=== PATIENT | male | born 1955 | race Caucasian/White ===

== ENCOUNTER 2017-01-02 09:55 | Emergency (ER) | payer OTHER ==
[~2017-01-02] VITALS: Ht 175.3 cm; Wt 110.2 kg
[~2017-01-02 09:55] MED LIST: ACET-749 PO; ASPI81TA28 PO; BISM262S7 PO; CYCL10TA6 PO; DEXL60CA4 PO; DOCU100C PO; IBUP-103 PO; LISI-789 PO; LPT/40 PO; METO25TA56 PO; NTRGSL/4 UT; PENI250T3 PO
[2017-01-02 09:57] VITALS: TEMP 36.8; Ht 175.3 cm; Wt 110.2 kg
[2017-01-02] MEDS ORDERED: METO50TA16 PO (10:49)
[2017-01-02] MEDS ORDERED: PRT/40 PO (10:49)
[2017-01-02] MEDS ORDERED: POLY335019 PO (10:51)
[2017-01-02] MEDS ORDERED: OPTIRAY 320 IV PRN (11:15)
[2017-01-02 11:32] LABS: BUN/CREATININE RATIO 14.8 (10-20); CALCIUM 9.1 mg/dl (8.5-10.1); CREATININE 1.3 mg/dl (0.60-1.40); POTASSIUM 4.1 mmol/L (3.5-5.1)
[2017-01-02 11:57] LABS: BASO % 0.3 %; BASO ABS # 0.02 K/uL (0-0.2); COMPLETE YES; EOS % 5.3 %; HEMATOCRIT 44.4 % (42-52); IG% 0.3 %; LYMPH % 24.7 %; LYMPH ABS # 1.45 K/uL (1.2-3.4); MEAN CELL VOLUME 96.1 fL (80-100); MEAN CORPUSCULAR HEMOGLOBIN 33.5 pg (25-34); MEAN CORPUSCULAR HGB CONC 34.9 g/dl (32-36); MONO % 13.6 %; NEUT % 55.8 %; PLATELET COUNT 209 K/uL (130-400); RED BLOOD COUNT 4.62 M/uL (4.7-6.1); WHITE BLOOD COUNT 5.87 K/uL (4.8-10.8)
--- NOTE | 2017-01-02 12:03 | DIAGNOSTIC IMAGING REPORT ---
SOFT TISSUE NECK WITH CLINICAL HISTORY: right neck pain and swelling eval for abscess TECHNIQUE: Transaxial acquisition with multi axial reformatted images COMPARISON STUDY: None FINDINGS: Major salivary glands appear symmetric. The parotid and submandibular glands appear unremarkable. The glottic and subglottic regions are unremarkable. There is no significant airway compromise. There are several benign-appearing calcifications of the peritonsillar region bilaterally. There is a benign venous angioma superficial to the deep component of the right masseter musculature. No evidence for abnormal collection or abscess. The glottic and subglottic regions again are unremarkable. Thyroid appears to be symmetric. IMPRESSION: No acute process. The above report was generated using voice recognition software. It may contain grammatical, syntax or spelling errors. Electronically signed by: Corky Carney M.D. 01/02/2017 12:01 PM Dictated Date/Time: 01/02/2017 11:56 AM
--- NOTE | 2017-01-02 12:28 | DIAGNOSTIC IMAGING REPORT ---
CHEST 2 VIEWS ROUTINE CLINICAL HISTORY: cough eval for pna cough COMPARISON STUDY: 01/13/2014 FINDINGS: The bones soft tissues and hemidiaphragms are normal. The cardiomediastinal silhouette is normal. The lungs are clear. The pulmonary vasculature is normal. IMPRESSION: Negative chest. The above report was generated using voice recognition software. It may contain grammatical, syntax or spelling errors. Electronically signed by: Corky Carney M.D. 01/02/2017 12:27 PM Dictated Date/Time: 01/02/2017 12:26 PM
[2017-01-02 13:06] VITALS: BP 138/89; PULSE 82; O2SAT 95
--- NOTE | 2017-01-02 17:04 | EMERGENCY ROOM VISIT NOTE ---
History Report prepared by Juan J: Rose Thomas Under the Supervision of: Dr. Moses De La Rosa M.D. First contact with patient: 10:30 Chief Complaint: NECK PAIN Stated Complaint: PAIN IN RT SIDE OF NECK History of Present Illness The patient is a 61 year old male who presents to the Emergency Room with complaints of persistent right sided neck pain starting 2 weeks ago. He woke up with the pain. He describes the pain as a stiffness. He denies any injury or unusual activity. The pain worsens with movement of his neck. He notes a cough which is productive of a sputum which is sometimes green and sometimes white. His throat has been feeling dry at times. He has also had some post nasal drip. Six days ago, he started having right dental pain which worsened over the next couple of days. He went to the dentist who started him on penicillin for a possible infection 2 days ago. That night, the right side of his face and right ear began feeling painful. The pain is constant and seems to be worsening. It worsens with chewing. He had an episode of vomiting 3 days ago in the middle of the night which was not preceded by coughing. He has not vomited since. He denies any fever, chest pain, or abdominal pain. He has a history of NV. He had severe chest pain prior to his previous NV. His current neck pain does not feel like his previous NV. Source of History: patient Onset: 2 weeks ago Position: neck (right) Quality: other (stiffness) Timing: other (persistent) Modifying Factors (Worsening): movement Associated Symptoms: + headache, + cough, + vomiting (episodic), No fevers, No chest pain, No abdominal pain Note: Pt reports throat feeling dry, right dental pain, right face pain, right ear pain. Review of Systems See HPI for pertinent positives & negatives. A total of 10 systems reviewed and were otherwise negative. Past Medical & Surgical Medical Problems: (1) CAD (coronary artery disease) (2) Cardiomyopathy (3) Chronic radicular low back pain (4) Depression (5) Drug-induced hypotension (6) Dyslipidemia (7) HTN (hypertension) Family History Cancer Gallbladder disease Heart disease Hypertension Social History Smoking Status: Never Smoker Alcohol Use: none Marital Status: Housing Status: lives with family Occupation Status: unemployed Current/Historical Medications Scheduled Acetaminophen/Codeine (Tylenol W/Codeine #3), 1 TAB PO TID Aspirin (Aspirin Ec), 81 MG PO DAILY Atorvastatin (Lipitor), 40 MG PO QPM Cyclobenzaprine Hcl (Flexeril), 10 MG PO TID Ibuprofen Tab (Advil), 400 MG PO Q4-6HRS Metoprolol Tartrate (Lopressor) (Lopressor), 1 TAB PO BID Pantoprazole (Pantoprazole Sodium), 1 TAB PO DAILY Penicillin V Potassium (Veetids), 1 TAB PO TID Polyethylene Glycol 3350 (Miralax), 17 GM PO DAILY Scheduled PRN Bismuth Subsalicylate (Pepto-Bismol), 30 ML PO UD PRN for Indigestion Nitroglycerin (Nitrostat), 0.4 MG UT UD PRN for Chest Pain Allergies Coded Allergies: BEE STING (Verified Allergy, Mild, RASH, 01/02/17) Onion (Verified Allergy, Unknown, SWELLING/RASH, 01/02/17) [place] (Verified Allergy, Unknown, ., 01/02/17) Physical Exam Vital Signs Date Time Temp Pulse Resp B/P (MAP) Pulse Ox O2 Delivery O2 Flow Rate FiO2 01/02/17 13:06 82 138/89 95 01/02/17 11:37 90 20 120/71 Room Air 01/02/17 10:41 Room Air 01/02/17 10:14 87 164/92 90 145/107 96 138/87 01/02/17 09:57 36.8 96 20 158/90 94 Room Air Physical Exam Constitutional: Vital signs reviewed. Eyes: Pupils are equal round reactive to light. Conjunctiva are noninjected. ENT: Pharynx is clear without erythema or exudate. Throat is very dry. Right TM is clear. Neck without meningeal signs. Soft tissue swelling and tenderness to the right neck. No percussion tenderness to the right mandibular and maxillary teeth. Respiratory: Clear to auscultation bilaterally. Breath sounds are equal bilaterally. Cardiovascular: Regular rate and rhythm. No rubs or gallops. GI: Soft, nondistended and nontender. Bowel sounds are present. Musculoskeletal: No peripheral edema. No lower extremity tenderness. Integumentary: No cyanosis. Neurological: The patient is awake and alert. No focal deficits. Psychiatric: Normal affect. Medical Decision & Procedures ER Provider Diagnostic Interpretation: X-ray results as stated below per interpretation by me and the radiologist. Radiology results as stated below per my review and the radiologist's interpretation: CHEST 2 VIEWS ROUTINE CLINICAL HISTORY: cough eval for pna cough COMPARISON STUDY: 01/13/2014 FINDINGS: The bones soft tissues and hemidiaphragms are normal. The cardiomediastinal silhouette is normal. The lungs are clear. The pulmonary vasculature is normal. IMPRESSION: Negative chest. The above report was generated using voice recognition software. It may contain grammatical, syntax or spelling errors. Electronically signed by: Corky Carney M.D. 01/02/2017 12:27 PM Dictated Date/Time: 01/02/2017 12:26 PM SOFT TISSUE NECK WITH CLINICAL HISTORY: right neck pain and swelling eval for abscess TECHNIQUE: Transaxial acquisition with multi axial reformatted images COMPARISON STUDY: None FINDINGS: Major salivary glands appear symmetric. The parotid and submandibular glands appear unremarkable. The glottic and subglottic regions are unremarkable. There is no significant airway compromise. There are several benign-appearing calcifications of the peritonsillar region bilaterally. There is a benign venous angioma superficial to the deep component of the right masseter musculature. No evidence for abnormal collection or abscess. The glottic and subglottic regions again are unremarkable. Thyroid appears to be symmetric. IMPRESSION: No acute process. The above report was generated using voice recognition software. It may contain grammatical, syntax or spelling errors. Electronically signed by: Corky Carney M.D. 01/02/2017 12:01 PM Dictated Date/Time: 01/02/2017 11:56 AM Laboratory Results 01/02/17 11:00 Red Blood Count 4.62, Mean Corpuscular Volume 96.1, Mean Corpuscular Hemoglobin 33.5, Mean Corpuscular Hemoglobin Concent 34.9, Mean Platelet Volume 11.0, Neutrophils (%) (Auto) 55.8, Lymphocytes (%) (Auto) 24.7, Monocytes (%) (Auto) 13.6, Eosinophils (%) (Auto) 5.3, Basophils (%) (Auto) 0.3, Neutrophils # (Auto ) 3.27, Lymphocytes # (Auto) 1.45, Monocytes # (Auto) 0.80, Eosinophils # (Auto ) 0.31, Basophils # (Auto) 0.02 01/02/17 11:00 Test 01/02/17 11:00 White Blood Count 5.87 K/uL (4.8-10.8) Red Blood Count 4.62 M/uL (4.7-6.1) Hemoglobin 15.5 g/dL (14.0-18.0) Hematocrit 44.4 % (42-52) Mean Corpuscular Volume 96.1 fL (80-100) Mean Corpuscular Hemoglobin 33.5 pg (25-34) Mean Corpuscular Hemoglobin Concent 34.9 g/dl (32-36) Platelet Count 209 K/uL (130-400) Mean Platelet Volume 11.0 fL (7.4-10.4) Neutrophils (%) (Auto) 55.8 % Lymphocytes (%) (Auto) 24.7 % Monocytes (%) (Auto) 13.6 % Eosinophils (%) (Auto) 5.3 % Basophils (%) (Auto) 0.3 % Neutrophils # (Auto) 3.27 K/uL (1.4-6.5) Lymphocytes # (Auto) 1.45 K/uL (1.2-3.4) Monocytes # (Auto) 0.80 K/uL (0.11-0.59) Eosinophils # (Auto) 0.31 K/uL (0-0.5) Basophils # (Auto) 0.02 K/uL (0-0.2) RDW Standard Deviation 44.4 fL (36.4-46.3) RDW Coefficient of Variation 12.8 % (11.5-14.5) Immature Granulocyte % (Auto) 0.3 % Immature Granulocyte # (Auto) 0.02 K/uL (0.00-0.02) Anion Gap 7.0 mmol/L (3-11) Est Creatinine Clear Calc Drug Dose 73.9 ml/min Estimated GFR () 68.7 Estimated GFR (Non- 59.3 BUN/Creatinine Ratio 14.8 (10-20) Calcium Level 9.1 mg/dl (8.5-10.1) Laboratory results as reviewed by me. ECG Indication: other (neck pain) Rate (beats per minute): 87 Rhythm: normal sinus Findings: nonspecific-ST abn (lead 1 and aVL), Q waves (Septal), no ectopy ED Course 1033: The patient was evaluated in room A11B. A complete history and physical exam was performed. 1246: I reevaluated the patient. I discussed the test results with him. I recommended antihistamines for his post nasal drop. I offered to change his antibiotic to Augmentin, but prefers to stay on penicillin. He verbalized agreement of the treatment plan. He was discharged home. He will follow up with his dentist. Medical Decision This is a 61-year-old male who presents with right-sided neck pain and dental pain. Differential diagnosis includes periapical abscess, sialoadenitis, sialolithiasis, soft tissue infection, abscess, mass. I did perform a limited focused review of portions of the patient's old chart on the electronic medical record. The patient has had no recent pertinent visits to this hospital. I did evaluate the patient as noted above. Patient is presenting with a 2 week history of right-sided neck pain. He is tender to palpation. He also has dental pain and was diagnosed by his dentist as having an ear infection and placed on penicillin. IV access was established. The patient has had a cough for about a month. I did order and personally review the patient's 12-lead EKG and chest x-ray as described above. Chest x-ray is unremarkable. Twelve-lead EKG is not showing any acute ischemic changes. He does state that his prior heart attack he had severe chest pain. He denies having any chest pain at this time. His neck pain is reproducible and not likely secondary to angina. His white blood cell count is not elevated. I did order and review the patient's blood work as noted in the electronic medical record. I did order a CT of the soft tissue neck. I did review the images myself as well as the radiology report as described above. I did discuss the test results with the patient and his family. He has no evidence of acute pathology and his CT scan. I did discuss possibly changing his antibiotic to Augmentin but he preferred to stand penicillin. He will follow up with his dentist. He was told to take antihistamines to help with his postnasal drip. He was discharged in good condition. He will also follow with his doctor. Medication Reconcilliation Current Medication List: was personally reviewed by me Blood Pressure Screening Patient's blood pressure: Elevated blood pressure Blood pressure disposition: Referred to PCP Impression Primary Impression: Neck pain on right side Additional Impressions: Dental infection Cough Scribe Attestation The scribe's documentation has been prepared under my direct and personally reviewed by me in its entirety. I confirm that the note above accurately reflects all work, treatment, procedures, and medical decision making performed by me. Departure Information Dispostion Home / Self-Care Referrals Akiko Decker PA-C (PCP) Forms HOME CARE DOCUMENTATION FORM, IMPORTANT VISIT INFORMATION, WORK / SCHOOL INSTRUCTIONS Patient Instructions ED Cough Chronic Cause Unkn, My [facility] Additional Instructions You have been examined and treated today on an emergency basis only. This is not a substitute for, or an effort to provide, complete comprehensive medical care. It is impossible to recognize and treat all injuries or illnesses in a single emergency department visit. It is therefore important that you follow up closely with your physician and dentist. Call as soon as possible for an appointment. Return for worsening symptoms or if you develop fever, vomiting, chest pain, difficulty breathing swelling to your face or any other concerning symptoms. Problem Qualifiers
== END 2017-01-02 13:07 | disposition home or self-care (01) ==
LOC: C.EDB 09:57 → C.EDA 13:07
DX: M54.2 Cervicalgia (principal); K04.7 Periapical abscess without sinus; R05 Cough; I25.2 Old myocardial infarction; I25.10 Atherosclerotic heart disease of native coronary artery without angina pectoris; I42.9 Cardiomyopathy, unspecified; F32.9 Major depressive disorder, single episode, unspecified; E78.5 Hyperlipidemia, unspecified; I10 Essential (primary) hypertension; Z80.9 Family history of malignant neoplasm, unspecified; Z83.79 Family history of other diseases of the digestive system; Z82.49 Family history of ischemic heart disease and other diseases of the circulatory system; Z79.82 Long term (current) use of aspirin; Z79.899 Other long term (current) drug therapy

== ENCOUNTER → 2017-07-07 | Day surgery (SDC) | payer OTHER ==
[2017-07-02 15:14] VITALS: Ht 172.7 cm; Wt 109.1 kg
[~2017-07-07] VITALS: Ht 172.7 cm; Wt 109.1 kg
[~2017-07-07] MED LIST changes: -BISM262S7 PO; -DEXL60CA4 PO; -DOCU100C PO; +LIDOCAINE HCL 2% 2 ML VIAL (20MG/ML) ONE; -LISI-789 PO; -METO25TA56 PO; +METO50TA16 PO; +MIDAZOLAM HCL 1 MG/ML 2ML VIAL ONE; +PANT1TAB3 PO; -PENI250T3 PO; +POLY335019 PO; +PROPOFOL IV EMULSION 10 MG/ML 20 ML VIAL IV ONE
--- NOTE | 2017-07-07 14:53 | Endo History and Physical ---
History & Physical Date of Service: Jul 07, 2017. Chief Complaint: dysphagia, history of polyps Referring Physician: Dr. Decker History of Present Illness For EGD and colonoscopy Past Medical History Arthritis, Male Genitourinary Prob., Reflux, High Cholesterol, Heart Disease, CHF, Hypertension, Other, Depression Past Surgical History Hx Cardiac Surgery: Yes (HEART CATH/1 STENT PLACED) Hx Internal Defibrillator: No Hx Pacemaker: No Hx Abdominal Surgery: Yes (APPY) Hx of Implantable Prosthesis: No Hx Post-Op Nausea and Vomiting: No Hx Cancer Surgery: No Hx Thoracic Surgery: No Hx Orthopedic: No Hx Urinary Tract Surgery: No Family History None Social History Smoking Status: Never Smoker Hx Substance Use: No Hx Alcohol Use: No Allergies Coded Allergies: BEE STING (Verified Allergy, Mild, RASH, 07/02/17) Onion (Verified Allergy, Unknown, SWELLING/RASH, 07/02/17) [place] (Verified Allergy, Unknown, UPPER RESP. PROBLEM, 07/02/17) Current Medications Reported Home Medications Medications Dose Route/Sig Max Daily Dose Days Date Category Protonix (Pantoprazole) 40 Mg Tab 40 Mg PO BID 07/02/17 Reported Miralax (Polyethylene Glycol 3350) 1 Pow Pow 17 Gm PO HS 07/02/17 Reported Lopressor (Metoprolol Tartrate) 50 Mg Tab 1 Tab PO BID 01/02/17 Reported Advil (Ibuprofen) 200 Mg Tab 400 Mg PO Q4-6HRS PRN 01/09/14 Reported Aspirin Ec (Aspirin) 81 Mg Tab 81 Mg PO BID 01/09/14 Reported Flexeril (Cyclobenzaprine Hcl) 10 Mg Tab 10 Mg PO TID 01/09/14 Reported Lipitor (Atorvastatin) 40 Mg Tab 40 Mg PO QPM 01/09/14 Reported Nitrostat (Nitroglycerin) 0.4 Mg Tab 0.4 Mg UT UD PRN 03/17/13 Reported Tylenol W/Codeine #3 (Acetaminophen/Codeine Phosphate) 300 Mg/30 Mg Tab 1 Tab PO TID 01/31/11 Reported Vital Signs Weight (Kilograms): 109.09 Height (Feet): 5 Height (Inches): 8 Date Time Temp Pulse Resp B/P (MAP) Pulse Ox O2 Delivery O2 Flow Rate FiO2 07/07/17 14:21 36.7 95 22 143/82 (102) 98 Room Air Physical Exam General Appearance: WD/WN Respiratory/Chest: Respiratory effort: no dyspnea Cardiovascular: Heart Auscultation: RRR Abdomen: Inspection & Palpation: soft Assessment and Plan Dysphagia, hx polyps for EGD and colonoscopy
--- NOTE | 2017-07-07 15:27 | Discharge Instructions ---
Endoscopy Patient Instructions Date / Procedure(s) Performed Jul 07, 2017. Colonoscopy, EGD Allergy Information Coded Allergies: BEE ST[place] (Verified Allergy, Mild, RASH, 07/02/17) Onion (Verified Allergy, Unknown, SWELLING/RASH, 07/02/17) [place] (Verified Allergy, Unknown, UPPER RESP. PROBLEM, 07/02/17) Discharge Date / Findings Jul 07, 2017. Diverticulosis, hemorrhoids, normal EGD Medication Instructions Restart Stopped Medication(s): resume meds Reported Home Medications Medications Dose Route/Sig Max Daily Dose Days Date Category Protonix (Pantoprazole) 40 Mg Tab 40 Mg PO BID 07/02/17 Reported Miralax (Polyethylene Glycol 3350) 1 Pow Pow 17 Gm PO HS 07/02/17 Reported Lopressor (Metoprolol Tartrate) 50 Mg Tab 1 Tab PO BID 01/02/17 Reported Advil (Ibuprofen) 200 Mg Tab 400 Mg PO Q4-6HRS PRN 01/09/14 Reported Aspirin Ec (Aspirin) 81 Mg Tab 81 Mg PO BID 01/09/14 Reported Flexeril (Cyclobenzaprine Hcl) 10 Mg Tab 10 Mg PO TID 01/09/14 Reported Lipitor (Atorvastatin) 40 Mg Tab 40 Mg PO QPM 01/09/14 Reported Nitrostat (Nitroglycerin) 0.4 Mg Tab 0.4 Mg UT UD PRN 03/17/13 Reported Tylenol W/Codeine #3 (Acetaminophen/Codeine Phosphate) 300 Mg/30 Mg Tab 1 Tab PO TID 01/31/11 Reported Provider Instructions Activity Restrictions - No exercising or heavy lifting for 24 hours. - Do not drink alcohol the day of the procedure. - Do not drive a car or operate machinery until the day after the procedure. - Do not make any important decisions or sign important papers in 24 hours after the procedure. Following Day: - Return to full activity which may include returning to work/school. Diet Start your diet with liquids and light foods (jello, soup, juice, toast). Then eat your usual diet if not nauseated. Treatment For Common After Affects For mild abdominal pain, bloating, or excessive gas: - Rest - Eat lightly - Lie on right side Follow-Up Information Follow-up with Dr. Decker as scheduled Anesthesia Information What You Should Know You have had a procedure that required some medicine to reduce anxiety and discomfort. This treatment is called moderate sedation. After receiving the treatment, you may be sleepy, but you will be able to breathe on your own. The effects of the treatment may last for several hours. Follow these instructions along with Activity/Diet recommendations noted above: * Do NOT do anything where dizziness or clumsiness would be dangerous. * Rest quietly at home today, then you can be up and about tomorrow. * Have a responsible person stay with you the rest of today. * You may have had an I.V. today. If so, you may take the dressing off later today. Recommendations Call your doctor if: * Trouble breathing * Continuous vomiting for more than 24 hours * Temperature above 101 degrees * Severe abdominal pain or bloating * Pain not relieved by pain medicine ordered * There is increased drainage or redness from any incision * A large amount of rectal bleeding greater than 2-3 tablespoons. (If you had a polyp/s removed or have hemorrhoids, a small amount of blood - from the rectum is to be expected.) * You have any unanswered questions or concerns. IN THE EVENT OF A SERIOUS EMERGENCY, GO TO THE NEAREST EMERGENCY ROOM Your discharge instructions were prepared by provider Ruslan Sanchez. Patient Instructions Signature Page Cholo Dudley Patient (or Guardian) Signature/Date: I have read and understand the instructions given to me by my caregivers. Caregiver/RN/Doctor Signature/Date: The above-named patient and/or guardian has received patient instructions on this date. + Original Patient Signature Page (only) stays with chart. Please make copy for patient.
--- NOTE | 2017-07-07 15:30 | GI REPORT ---
Procedure Date: 07/07/2017 3:03 PM Procedure: Upper GI endoscopy Indications: Dysphagia Medicines: Midazolam 2 mg IV, Propofol total dose 340 mg IV, Lidocaine 80 mg IV Complications: No immediate complications. Estimated Blood Loss: Estimated blood loss: none. Procedure: Pre-Anesthesia Assessment: - Prior to the procedure, a History and Physical was performed, and patient medications, allergies and sensitivities were reviewed. The patient's tolerance of previous anesthesia was reviewed. - The risks and benefits of the procedure and the sedation options and risks were discussed with the patient. All questions were answered and informed consent was obtained. After obtaining informed consent, the endoscope was passed under direct vision. Throughout the procedure, the patient's blood pressure, pulse, and oxygen saturations were monitored continuously. The On-site loaner was introduced through the mouth, and advanced to the second part of duodenum. The upper GI endoscopy was accomplished without difficulty. The patient tolerated the procedure well. Findings: The esophagus was normal. The stomach was normal. The examined duodenum was normal. Impression: - Normal esophagus. - Normal stomach. - Normal examined duodenum. - No specimens collected. Recommendation: - Discharge patient to home (ambulatory). - Continue present medications. - Return to primary care physician PRN. Ruslan Sanchez M.D. Ruslan Sanchez MD 07/07/2017 3:30:11 PM This report has been signed electronically. Note Initiated On: 07/07/2017 3:03 PM I attest to the content of the Intraoperative Record and orders documented therein, exceptions below
--- NOTE | 2017-07-07 15:33 | GI REPORT ---
Procedure Date: 07/07/2017 3:15 PM Procedure: Colonoscopy Indications: Personal history of colonic polyps Medicines: Midazolam 2 mg IV, Propofol total dose 340 mg IV, Lidocaine 80 mg IV Complications: No immediate complications. Estimated Blood Loss: Estimated blood loss: none. Procedure: Pre-Anesthesia Assessment: - Prior to the procedure, a History and Physical was performed, and patient medications, allergies and sensitivities were reviewed. The patient's tolerance of previous anesthesia was reviewed. - The risks and benefits of the procedure and the sedation options and risks were discussed with the patient. All questions were answered and informed consent was obtained. After I obtained informed consent, the scope was passed under direct vision. Throughout the procedure, the patient's blood pressure, pulse, and oxygen saturations were monitored continuously. The scope was introduced through the anus and advanced to the cecum, identified by appendiceal orifice and ileocecal valve. The colonoscopy was performed without difficulty. The patient tolerated the procedure well. The quality of the bowel preparation was good. Findings: Non-bleeding internal hemorrhoids were found during endoscopy. The hemorrhoids were moderate. A few diverticula were found in the sigmoid colon. Impression: - Non-bleeding internal hemorrhoids. - Diverticulosis in the sigmoid colon. - No specimens collected. Recommendation: - Discharge patient to home (ambulatory). - Continue present medications. - Return to primary care physician PRN. - Repeat colonoscopy in 5 years for surveillance. Ruslan Sanchez M.D. Ruslan Sanchez MD 07/07/2017 3:32:33 PM This report has been signed electronically. Note Initiated On: 07/07/2017 3:15 PM I attest to the content of the Intraoperative Record and orders documented therein, exceptions below
[2017-07-07 16:05] VITALS: PULSE 88; O2SAT 95
--- NOTE | 2017-07-07 16:15 | Anesthesiology Progress Note ---
Anesthesia Post Op Note Date & Time Jul 07, 2017 at 16:15 Vital Signs Pain Intensity: 8 Vital Signs Past 12 Hours Date Time Temp Pulse Resp B/P (MAP) Pulse Ox O2 Delivery O2 Flow Rate FiO2 07/07/17 14:21 36.7 95 22 143/82 (102) 98 Room Air Notes Mental Status: alert / awake / arousable, participated in evaluation Pt Amnestic to Procedure: Yes Nausea / Vomiting: adequately controlled Pain: adequately controlled Airway Patency, RR, SpO2: stable & adequate BP & HR: stable & adequate Hydration State: stable & adequate Anesthetic Complications: no major complications apparent
[2017-07-07 16:20] VITALS: BP 144/94
== END | disposition home or self-care (01) ==
LOC: C.GI 13:43
PROVIDERS: ATTEND Internal Medicine Gastroenterology
DX: R13.10 Dysphagia, unspecified (principal); K21.9 Gastro-esophageal reflux disease without esophagitis; Z86.010 Personal history of colon polyps; K64.8 Other hemorrhoids; K57.90 Diverticulosis of intestine, part unspecified, without perforation or abscess without bleeding; I10 Essential (primary) hypertension; E78.00 Pure hypercholesterolemia, unspecified; Z90.89 Acquired absence of other organs; Z91.030 Bee allergy status; Z79.82 Long term (current) use of aspirin; Z79.899 Other long term (current) drug therapy

== ENCOUNTER 2018-05-12 17:12 | Inpatient (IN) ==
[2018-05-12 18:05] LABS: Basophils # (auto) 0.02 K/uL (0-0.2); Basophils % (auto) 0.2 %; Eosinophils % (auto) 1.7 %; Hematocrit (blood only) 48.5 % (42-52); Hemoglobin 16.4 g/dL (14.0-18.0); Immature Granulocytes # (auto) 0.03 K/uL (0.00-0.02); Immature Granulocytes % (auto) 0.3 %; Lymphocytes % (auto) 11.8 %; Mean Corpuscular Hgb Conc 33.8 g/dL (32-36); Mean Corpuscular Volume 96.8 fL (80-100); Mean Platelet Volume 10.9 fL (7.4-10.4); Monocytes # (auto) 1.43 K/uL (0.11-0.59); Neutrophils # (auto) 8.79 K/uL (1.4-6.5); Platelet Count 200 K/uL (130-400); RDW Coefficient of Variation 13.2 % (11.5-14.5); RDW Standard Deviation 46.5 fL (36.4-46.3); Red Blood Count 5.01 M/uL (4.7-6.1); White Blood Count 11.87 K/uL (4.8-10.8)
[2018-05-12] MEDS ORDERED: ONDANSETRON INJ 2 MG/ML 2 ML VIAL IV STA ×2 (18:18→19:29)
[2018-05-12 18:22] LABS: Alanine Aminotransferase 47 U/L (12-78); Albumin Level 4.1 gm/dl (3.4-5.0); Aspartate Aminotransferase 21 U/L (15-37); BUN Creatinine Ratio 18.2 (10-20); Blood Urea Nitrogen 25 mg/dl (7-18); Carbon Dioxide 23 mmol/L (21-32); Chloride 104 mmol/L (98-107); Est GFR (African American) 63.1; Est GFR (Non-African American) 54.4; Glucose 116 mg/dl (70-99); Potassium 4.4 mmol/L (3.5-5.1); Sodium 135 mmol/L (136-145)
[2018-05-12 18:25] LABS: Alkaline Phosphatase 74 U/L (45-117); Bilirubin,Total 0.8 mg/dl (0.2-1); Total Protein 8.1 gm/dl (6.4-8.2)
[2018-05-12] MEDS ORDERED: SODIUM CHLORIDE 0.9% 1000ML 1,000 ML IV SCH (18:30)
--- NOTE | 2018-05-12 18:37 | XRay Report ---
XR chest 1V portable HISTORY: Nausea. Generalized abdominal pain COMPARISON: Chest 1020 [id number]. FINDINGS: No pneumothorax. No pleural effusions. The heart is normal in size. Stable linear scarlike density at the left lung base. The lungs are otherwise clear. The heart is normal in size. IMPRESSION: No significant change compared to the prior study. No acute process. Electronically signed by: Ignacio Santos M.D. 05/12/2018 6:35 PM
[2018-05-12 18:39] LABS: Troponin I < 0.015 ng/ml (0-0.045)
--- NOTE | 2018-05-12 18:40 | Emergency Department Note ---
Entered by Rosalinda Galvan acting as a scribe for Idris Pepe DO History of Present Illness General Chief complaint: Vomiting Stated complaint: SICK,VOMITING Time Seen by Provider: 05/12/18 18:10 Source: patient Mode of arrival: ambulatory Limitations: no limitations History of Present Illness Provider complaint: abdominal pain Onset (ago): hour(s) (this morning) Location: abdomen Pain Consistency: + other (worsening) Maximum Pain Intensity: 10 Current Pain Intensity: 8 Quality: + other (cramp-like) Relieved By: not by other (BM) Associated symptoms: + denies other symptoms (leg pain or swelling) and + headaches; no chest pain and no fever/chills The patient is a 63 year old male who presents to the Emergency Room with complaints of a worsening abdominal pain that began this morning. The patient reports that he ate some cherries, and about an hour later had a "cramp-like" pain in his stomach, just above the belly button. He states that he had a normal bowel movement shortly after and that it did not alleviate his pain. He notes that he has since also felt bloated but denies any chest pain, leg pain or leg swelling. He reports that he is currently on a low-dose aspirin but denies any blood thinners. He also denies any episodes of fever but notes that he has had a headache. The patient states that he has chronic dizziness secondary to his medications. Home Medications Home Medications Medication Instructions Recorded Confirmed Type acetaminophen-codeine 1 tab PO TID 02/09/18 05/12/18 History [Tylenol-Codeine #3] aspirin [Aspir-81] 81 mg PO DAILY 02/09/18 05/12/18 History cyclobenzaprine 10 mg PO TID 02/09/18 05/12/18 History ibuprofen [Advil Liqui-Gel] 200 mg PO QID PRN 02/09/18 05/12/18 History metoprolol tartrate 50 mg PO BID 02/09/18 05/12/18 History pantoprazole 40 mg PO BID 02/09/18 05/12/18 History polyethylene glycol 3350 [Miralax] 17 g PO DAILY 02/09/18 05/12/18 History pravastatin 40 mg PO DAILY 02/09/18 05/12/18 History amlodipine 2.5 mg PO DAILY 05/12/18 05/12/18 History Allergies Allergy/AdvReac Type Severity Reaction Status Date / Time bee venom protein (honey bee) Allergy Severe Anaphylaxis Verified 05/12/18 19:25 strawberry Allergy Mild Rash Verified 05/12/18 19:25 onion AdvReac Unknown Nausea Verified 05/12/18 19:25 Past Med/Surg History Medical History Myocardial infarction Small bowel obstruction Surgical History History of colonoscopy Social History Current Living Situation: Family Feels Safe at Home: Yes Safety Concerns: Feels Safe At This Time Smoking Status: Never smoker Hx Substance Use: No Beliefs That Will Affect Care: None Preferred Language: Somali Communication Ability: Effective Review of Systems See HPI for pertinent positives & negatives. and A total of 10 systems reviewed and were otherwise negative Physical Exam Vital Signs Vital Signs - 24 hr 05/12/18 17:41 05/12/18 18:36 05/12/18 19:22 Temperature 36.5 C Temperature Source Oral Sepsis Recent Fever Within 48 Hours No Sepsis New/Unexplained Change in Mental Status No Sepsis Action Taken by Nursing No Action Required Pulse Rate 98 H 82 Pulse Rate [Finger] 82 82 Pulse Rhythm Regular Pulse Rhythm [Finger] Regular Pulse Strength Normal Pulse Strength [Finger] Respiratory Rate 20 18 16 Respiratory Effort / Characteristics Non-Labored Spontaneous Non-Labored Spontaneous Respiratory Depth Normal Normal Respiratory Pattern Regular Regular Blood Pressure 134/82 Blood Pressure [Left Arm] 129/75 Blood Pressure [Right Arm] Blood Pressure Mean 99 Blood Pressure Mean [Left Arm] 93 Blood Pressure Mean [Right Arm] Blood Pressure Position Sitting Blood Pressure Position [Left Arm] Blood Pressure Position [Right Arm] Pulse Oximetry 95 98 99 Oxygen Delivery Method Room Air Room Air Room Air 05/12/18 20:01 05/12/18 21:01 05/12/18 22:01 Temperature Temperature Source Sepsis Recent Fever Within 48 Hours Sepsis New/Unexplained Change in Mental Status Sepsis Action Taken by Nursing Pulse Rate 82 79 78 Pulse Rate [Finger] Pulse Rhythm Pulse Rhythm [Finger] Pulse Strength Pulse Strength [Finger] Respiratory Rate 20 17 17 Respiratory Effort / Characteristics Respiratory Depth Respiratory Pattern Blood Pressure 130/72 123/75 117/71 Blood Pressure [Left Arm] Blood Pressure [Right Arm] Blood Pressure Mean 91 91 86 Blood Pressure Mean [Left Arm] Blood Pressure Mean [Right Arm] Blood Pressure Position Blood Pressure Position [Left Arm] Blood Pressure Position [Right Arm] Pulse Oximetry 95 96 98 Oxygen Delivery Method 05/12/18 23:00 05/12/18 23:12 05/12/18 23:15 Temperature 36.5 C Temperature Source Oral Sepsis Recent Fever Within 48 Hours Sepsis New/Unexplained Change in Mental Status Sepsis Action Taken by Nursing Pulse Rate 82 82 Pulse Rate [Finger] 81 Pulse Rhythm Pulse Rhythm [Finger] Pulse Strength Pulse Strength [Finger] Respiratory Rate 14 20 Respiratory Effort / Characteristics Non-Labored Respiratory Depth Normal Respiratory Pattern Blood Pressure 128/86 Blood Pressure [Left Arm] 129/81 Blood Pressure [Right Arm] Blood Pressure Mean Blood Pressure Mean [Left Arm] 97 Blood Pressure Mean [Right Arm] Blood Pressure Position Blood Pressure Position [Left Arm] Sitting Blood Pressure Position [Right Arm] Pulse Oximetry 98 99 Oxygen Delivery Method Room Air Room Air 05/13/18 00:06 05/13/18 03:49 05/13/18 05:44 Temperature 37.1 C Temperature Source Oral Sepsis Recent Fever Within 48 Hours Sepsis New/Unexplained Change in Mental Status Sepsis Action Taken by Nursing Pulse Rate 79 80 Pulse Rate [Finger] 80 80 Pulse Rhythm Pulse Rhythm [Finger] Pulse Strength Pulse Strength [Finger] Respiratory Rate 18 Respiratory Effort / Characteristics Respiratory Depth Respiratory Pattern Blood Pressure 129/81 98/62 L Blood Pressure [Left Arm] 109/69 98/62 L Blood Pressure [Right Arm] Blood Pressure Mean Blood Pressure Mean [Left Arm] 82 74 Blood Pressure Mean [Right Arm] Blood Pressure Position Blood Pressure Position [Left Arm] Lying Lying Blood Pressure Position [Right Arm] Pulse Oximetry 97 Oxygen Delivery Method Room Air 05/13/18 06:51 05/13/18 07:15 05/13/18 08:00 Temperature 37.1 C 37.1 C Temperature Source Oral Oral Sepsis Recent Fever Within 48 Hours Sepsis New/Unexplained Change in Mental Status Sepsis Action Taken by Nursing Pulse Rate 83 Pulse Rate [Finger] 73 85 Pulse Rhythm Pulse Rhythm [Finger] Regular Pulse Strength Pulse Strength [Finger] Normal Respiratory Rate 18 18 Respiratory Effort / Characteristics Non-Labored Spontaneous Respiratory Depth Normal Respiratory Pattern Regular Blood Pressure Blood Pressure [Left Arm] 107/67 Blood Pressure [Right Arm] 104/67 Blood Pressure Mean Blood Pressure Mean [Left Arm] 80 Blood Pressure Mean [Right Arm] 79 Blood Pressure Position Blood Pressure Position [Left Arm] Lying Blood Pressure Position [Right Arm] Lying Pulse Oximetry 96 95 Oxygen Delivery Method Room Air Room Air 05/13/18 11:43 Temperature 37.0 C Temperature Source Oral Sepsis Recent Fever Within 48 Hours Sepsis New/Unexplained Change in Mental Status Sepsis Action Taken by Nursing Pulse Rate Pulse Rate [Finger] 86 Pulse Rhythm Pulse Rhythm [Finger] Pulse Strength Pulse Strength [Finger] Respiratory Rate 19 Respiratory Effort / Characteristics Respiratory Depth Respiratory Pattern Blood Pressure Blood Pressure [Left Arm] 105/61 Blood Pressure [Right Arm] Blood Pressure Mean Blood Pressure Mean [Left Arm] 75 Blood Pressure Mean [Right Arm] Blood Pressure Position Blood Pressure Position [Left Arm] Sitting Blood Pressure Position [Right Arm] Pulse Oximetry 95 Oxygen Delivery Method Room Air GENERAL: Patient is awake alert in no acute distress patient is resting comfortably and showing no signs of anxiety EYES: The conjunctivae are clear. The pupils are round and reactive. EARS, NOSE, MOUTH AND THROAT: The nose is without any evidence of any deformity. Mucous membranes are moist tongue is midline NECK: The neck is nontender and supple. RESPIRATORY: Normal respiratory effort is noted there is no evidence of wheezing rhonchi or rales CARDIOVASCULAR: Regular rate and rhythm noted there no murmurs rubs or gallops normal S1 normal S2 GASTROINTESTINAL: The abdomen is moderately distended and diffusely tender. There is guarding in the left upper quadrant. The patient states that he has a history of a periumbilical hernia and I do not appreciate one on my physical exam. MUSCULOSKELETAL/EXTREMITIES: There is no evidence of gross deformity full range of motion is noted in the hips and shoulders SKIN: There is no obvious evidence of any rash. There are no petechiae, pallor or cyanosis noted. NEUROLOGIC: Patient is awake alert and oriented x3. Course 1816: Past medical records reviewed. The patient was evaluated in room B8, and a complete history and physical examination were performed. 1940: I reviewed the patient's case with Dr. Allison - [facility] Hospitalist. He will evaluate the patient for further management. 1948: I reviewed the patient's case with Dr. Rick Garrett [facility] General Surgery. He will follow-up with the patient. Administered Medications Hydromorphone HCl (Dilaudid) 0.5 mg IV Q3H PRN PRN Reason: Pain Stop: 05/26/18 23:09 Last Admin: 05/13/18 07:20 Dose: 0.5 mg Pantoprazole Sodium 40 mg/ (Syringe) 10 mls @ 5 mls/min IV DAILY@1100 [facility] Stop: 06/12/18 10:59 Last Admin: 05/13/18 10:53 Dose: 5 mls/min Dextrose/Sodium Chloride (D5w And Nss) 1,000 mls @ 125 mls/hr IV .Q8H PJ Stop: 05/13/18 15:09 Last Admin: 05/13/18 07:21 Dose: 125 mls/hr Infusion: 05/13/18 07:21 Dose: 125 mls/hr Admin: 05/12/18 23:42 Dose: 125 mls/hr Ioversol (Optiray 320 125ml) 120 ml IV ONCE PRN PRN Reason: Interaction Checking Stop: 05/16/18 18:51 Last Admin: 05/12/18 18:54 Dose: 120 ml Metoprolol Tartrate (Lopressor) 5 mg IV Q6 [facility] Stop: 06/12/18 00:00 Last Admin: 05/13/18 05:44 Dose: Not Given Admin: 05/13/18 00:06 Dose: 5 mg Morphine Sulfate (Morphine Sulfate) 4 mg IV Q15M PRN PRN Reason: Pain Stop: 05/26/18 19:28 Last Admin: 05/13/18 00:10 Dose: 4 mg Admin: 05/12/18 19:40 Dose: 4 mg Discontinued Medications Bisacodyl (Dulcolax) 10 mg DC NOW STA Stop: 05/13/18 10:27 Last Admin: 05/13/18 10:53 Dose: Not Given Sodium Chloride (Nss 1000ml) 1,000 mls @ 999 mls/hr IV .Q1H1M PJ Stop: 05/12/18 19:30 Last Infusion: 05/12/18 19:37 Dose: 0 mls/hr Admin: 05/12/18 18:38 Dose: 999 mls/hr Sodium Chloride (Nss 1000ml) 1,000 mls @ 999 mls/hr IV .Q1H1M ONE Stop: 05/12/18 20:32 Last Infusion: 05/12/18 20:44 Dose: 0 mls/hr Admin: 05/12/18 19:41 Dose: 999 mls/hr Piperacillin Sod/Tazobactam Sod (Zosyn) 4.5 gm in 120 mls @ 240 mls/hr IV NOW ONE Stop: 05/12/18 20:01 Last Infusion: 05/12/18 20:15 Dose: 0 mls/hr Admin: 05/12/18 19:41 Dose: 240 mls/hr Ondansetron HCl (Zofran) 4 mg IV NOW STA Stop: 05/12/18 18:19 Last Admin: 05/12/18 18:38 Dose: 4 mg Ondansetron HCl (Zofran) 4 mg IV NOW STA Stop: 05/12/18 19:30 Last Admin: 05/12/18 19:40 Dose: 4 mg Polyethylene Glycol (Miralax Powder Packet) 17 gm PO ONCE ONE Stop: 05/13/18 10:29 Last Admin: 05/13/18 10:53 Dose: Not Given Medical Decision Making Differential Diagnosis Differential diagnosis includes: gastritis, peptic ulcer disease, GERD, gallbladder disease, pancreatitis, small bowel obstruction, acute coronary syndrome, pericarditis, ischemic bowel, irritable bowel disease, irritable bowel syndrome, appendicitis, diverticulitis, malignancy, hernia, UTI, torsion, perforation, trauma, and kidney stones. Medical Records Attestation: I reviewed the patient's medical records. Home Medications Current Medication List: was personally reviewed by me Laboratory Data Attestation: I reviewed the patient's lab results. Result diagrams: 05/12/18 17:50 05/12/18 17:50 Lab Results 05/12/18 05/12/18 05/12/18 Range/Units 17:50 17:50 17:50 WBC 11.87 H (4.8-10.8) K/uL RBC 5.01 (4.7-6.1) M/uL Hgb 16.4 (14.0-18.0) g/dL Hct 48.5 (42-52) % MCV 96.8 (80-100) fL MCH 32.7 (25-34) pg MCHC 33.8 (32-36) g/dL RDW Std Deviation 46.5 H (36.4-46.3) fL RDW Coeff of Roxy 13.2 (11.5-14.5) % Plt Count 200 (130-400) K/uL MPV 10.9 H (7.4-10.4) fL Immature Gran % (Auto) 0.3 % Neut % (Auto) 74.0 % Lymph % (Auto) 11.8 % [place] % (Auto) 12.0 % Eos % (Auto) 1.7 % Baso % (Auto) 0.2 % Immature Gran # (Auto) 0.03 H (0.00-0.02) K/uL Neut # (Auto) 8.79 H (1.4-6.5) K/uL Lymph # (Auto) 1.40 (1.2-3.4) K/uL [place] # (Auto) 1.43 H (0.11-0.59) K/uL Eos # (Auto) 0.20 (0-0.5) K/uL Baso # (Auto) 0.02 (0-0.2) K/uL PT 10.5 (9.0-12.0) Seconds INR 1.0 (0.9-1.1) APTT 24.0 (21.0-31.0) Seconds PTT Ratio 0.9 Sodium 135 L (136-145) mmol/L Potassium 4.4 (3.5-5.1) mmol/L Chloride 104 (98-107) mmol/L Carbon Dioxide 23 (21-32) mmol/L Anion Gap 8.0 (3-11) BUN 25 H (7-18) mg/dl Creatinine 1.38 (0.6-1.4) mg/dl Est Cr Clr Drug Dosing 66.0 ml/min Est GFR ( Amer) 63.1 Est GFR (Non-Af Amer) 54.4 BUN/Creatinine Ratio 18.2 (10-20) Glucose 116 H (70-99) mg/dl Calcium 9.0 (8.5-10.1) mg/dl Total Bilirubin 0.8 (0.2-1) mg/dl AST 21 (15-37) U/L ALT 47 (12-78) U/L Alkaline Phosphatase 74 (45-117) U/L Troponin I < 0.015 (0-0.045) ng/ml Total Protein 8.1 (6.4-8.2) gm/dl Albumin 4.1 (3.4-5.0) gm/dl Globulin 4.0 (2.5-4.0) gm/dl Albumin/Globulin Ratio 1.0 (0.9-2) Lipase 68 L (73-393) U/L Urine Color Urine Appearance (Clear) Urine pH (4.5-7.5) Ur Specific [place] (1.000-1.030) Urine Protein (Negative) Urine Glucose (UA) (Negative) Urine Ketones (Negative) Urine Blood (Negative) Urine Nitrite (Negative) Urine Bilirubin (Negative) Urine Urobilinogen (Negative) Ur Leukocyte Esterase (Negative) Urine WBC (Auto) (0-5) /hpf Urine RBC (Auto) (0-4) /hpf U Hyaline Cast (Auto) (0-5) /lpf U Epithel Cells (Auto) (0-5) /lpf Urine Bacteria (Auto) (Negative) Hepatitis C Ab Screen (Neg) 05/12/18 05/12/18 Range/Units 18:30 19:20 WBC (4.8-10.8) K/uL RBC (4.7-6.1) M/uL Hgb (14.0-18.0) g/dL Hct (42-52) % MCV (80-100) fL MCH (25-34) pg MCHC (32-36) g/dL RDW Std Deviation (36.4-46.3) fL RDW Coeff of Roxy (11.5-14.5) % Plt Count (130-400) K/uL MPV (7.4-10.4) fL Immature Gran % (Auto) % Neut % (Auto) % Lymph % (Auto) % [place] % (Auto) % Eos % (Auto) % Baso % (Auto) % Immature Gran # (Auto) (0.00-0.02) K/uL Neut # (Auto) (1.4-6.5) K/uL Lymph # (Auto) (1.2-3.4) K/uL [place] # (Auto) (0.11-0.59) K/uL Eos # (Auto) (0-0.5) K/uL Baso # (Auto) (0-0.2) K/uL PT (9.0-12.0) Seconds INR (0.9-1.1) APTT (21.0-31.0) Seconds PTT Ratio Sodium (136-145) mmol/L Potassium (3.5-5.1) mmol/L Chloride (98-107) mmol/L Carbon Dioxide (21-32) mmol/L Anion Gap (3-11) BUN (7-18) mg/dl Creatinine (0.6-1.4) mg/dl Est Cr Clr Drug Dosing ml/min Est GFR ( Amer) Est GFR (Non-Af Amer) BUN/Creatinine Ratio (10-20) Glucose (70-99) mg/dl Calcium (8.5-10.1) mg/dl Total Bilirubin (0.2-1) mg/dl AST (15-37) U/L ALT (12-78) U/L Alkaline Phosphatase (45-117) U/L Troponin I (0-0.045) ng/ml Total Protein (6.4-8.2) gm/dl Albumin (3.4-5.0) gm/dl Globulin (2.5-4.0) gm/dl Albumin/Globulin Ratio (0.9-2) Lipase (73-393) U/L Urine Color Dark Yellow Urine Appearance Clear (Clear) Urine pH 6.0 (4.5-7.5) Ur Specific [place] > 1.045 H (1.000-1.030) Urine Protein Trace H (Negative) Urine Glucose (UA) Negative (Negative) Urine Ketones Negative (Negative) Urine Blood Negative (Negative) Urine Nitrite Negative (Negative) Urine Bilirubin Negative (Negative) Urine Urobilinogen Negative (Negative) Ur Leukocyte Esterase Negative (Negative) Urine WBC (Auto) 1-5 (0-5) /hpf Urine RBC (Auto) 5-10 H (0-4) /hpf U Hyaline Cast (Auto) 5-10 H (0-5) /lpf U Epithel Cells (Auto) 10-20 H (0-5) /lpf Urine Bacteria (Auto) Negative (Negative) Hepatitis C Ab Screen Neg (Neg) Imaging Data Radiologist's Impression: Radiology results as stated below per my review and the radiologist's interpretation: XR chest 1V portable HISTORY: Nausea. Generalized abdominal pain COMPARISON: Chest 1020 [id number]. FINDINGS: No pneumothorax. No pleural effusions. The heart is normal in size. Stable linear scarlike density at the left lung base. The lungs are otherwise clear. The heart is normal in size. IMPRESSION: No significant change compared to the prior study. No acute process. Electronically signed by: Ignacio Santos M.D. 05/12/2018 6:35 PM ABDOMEN AND PELVIS CT WITH IV CONTRAST CT DOSE: 1028.14 mGy.cm HISTORY: Acute periumbilical abdominal pain abd pain TECHNIQUE: Multiaxial CT images of the abdomen and pelvis were performed following the use of intravenous contrast. A dose lowering technique was utilized adhering to the principles of ALARA. COMPARISON STUDY: CT abdomen and pelvis 01/12/2014. FINDINGS: Linear subsegmental atelectasis/scarring about the inferior segment lingula. Lung bases otherwise appear generally clear. No pneumatosis or pneumoperitoneum. Imaged inferior cardiac chambers appear unremarkable. Mural fibrofatty changes about the ventricular apex suggest prior myocardial infarction. Hepatic steatosis. No focal hepatic mass lesions. No evidence of cirrhosis. Patency of the hepatic and portal veins. Spleen is unremarkable. Trace perisplenic free fluid. Pancreas and adrenal glands appear unremarkable. Renal sinus cysts noted about the bilateral kidneys, left greater the right. No renal calculi or hydronephrosis. Partial distention of the bladder with circumferential wall thickening and mild perivesicular stranding. Trace free fluid about the pelvis. Prostate is unremarkable. Aorta and IVC are within normal limits. No adenopathy. Moderate circumferential wall thickening about the distal esophagus with scattered nonenlarged to distal esophageal lymph nodes. Fluid-filled stomach. There are multiple dilated air and fluid-filled loops of small bowel measuring up to 4.0 cm and the compressed angular loops of small bowel within the abdominal right lower quadrant. No obstructing mass identified. Mild colonic diverticulosis without acute diverticulitis. Prior appendectomy. Soft tissues are unremarkable. The bones appear to be intact. Bony fusion about the SI joints. Multilevel spondylitic spurring and facet arthrosis. IMPRESSION: 1. Multiple dilated, air and fluid-filled loops of small bowel throughout the abdomen and pelvis compatible with small bowel obstruction with transition point within the abdominal right lower quadrant. Findings are likely secondary to underlying small bowel adhesions. 2. Trace abdominopelvic ascites, likely reactive. 3. No pneumatosis or pneumoperitoneum. 4. Moderate nonspecific circumferential wall thickening about the distal esophagus. 5. Mild colonic diverticulosis without acute diverticulitis. 6. Hepatic steatosis. 7. Additional findings as above. Electronically signed by: Augustine Lin M.D. 05/12/2018 7:14 PM ECG Data Attestation: I personally reviewed and interpreted this ECG as follows: Indication: abdominal pain Rate (beats per minute): 81 Rhythm: normal sinus Findings: + other (LVH) and + T-wave inversion (lateral); no ectopy Comparison ECG Date: from () Change: no significant change Blood Pressure Blood Pressure Findings: Normal blood pressure Blood Pressure Disposition: did not require urgent referral MDM Narrative The patient is a 63-year-old male who presented to the emergency department for an evaluation of abdominal pain nausea and vomiting. The patient's history and physical exam appear to be consistent with bowel obstruction. The patient has a past surgical history of an appendectomy and has had bowel obstructions in the past. The patient was treated with IV fluids IV pain medicine and IV antiemetics. He was also given IV antibiotics after his CT revealed signs of bowel obstruction. I discussed the patient's laboratory and radiographic studies with him. He was feeling much better on subsequent reevaluation. I discussed this patient's case with the on-call [facility] hospitalist as well as the on-call general surgeon. Impression & Plan Small bowel obstruction, Abdominal pain, Nausea & vomiting Discharge Plan Visit Data *Final* Discharge Date/Time: 05/12/18 23:00 Chief Complaint: Vomiting Stated Complaint: SICK,VOMITING ED Provider: Idris Pepe Discharge Problem: Small bowel obstruction, Abdominal pain, Nausea & vomiting Patient Disposition: Admitted As Inpatient Discharge Instructions Interventions: ED Discharge Assessment Last Done: 05/12/18 23:00 The scribe's documentation has been prepared under my direction and personally reviewed by me in its entirety. I confirm that the note above accurately reflects all work, treatment, procedures, and medical decision making performed by me.
[2018-05-12 18:44] LABS: Partial Thromboplastin Ratio 0.9; Prothrombin Time 10.5 Seconds (9.0-12.0)
[2018-05-12] MEDS ORDERED: OPTIRAY 320 125ml IV PRN (18:52)
--- NOTE | 2018-05-12 19:16 | CT Scan Report ---
ABDOMEN AND PELVIS CT WITH IV CONTRAST CT DOSE: 1028.14 mGy.cm HISTORY: Acute periumbilical abdominal pain abd pain TECHNIQUE: Multiaxial CT images of the abdomen and pelvis were performed following the use of intrave nous contrast. A dose lowering technique was utilized adhering to the principles of ALARA. COMPARISON STUDY: CT abdomen and pelvis 01/12/2014. FINDINGS: Linear subsegmental atelectasis/scarring about the inferior segment lingula. Lung bases otherwise dali ear generally clear. No pneumatosis or pneumoperitoneum. Imaged inferior cardiac chambers appear unre markable. Mural fibrofatty changes about the ventricular apex suggest prior myocardial infarction. Hepatic steatosis. No focal hepatic mass lesions. No evidence of cirrhosis. Patency of the hepatic an d portal veins. Spleen is unremarkable. Trace perisplenic free fluid. Pancreas and adrenal glands dali ear unremarkable. Renal sinus cysts noted about the bilateral kidneys, left greater the right. No rajat al calculi or hydronephrosis. Partial distention of the bladder with circumferential wall thickening and mild perivesicular stranding. Trace free fluid about the pelvis. Prostate is unremarkable. Aorta and IVC are within normal limits. No adenopathy. Moderate circumferential wall thickening about the distal esophagus with scattered nonenlarged to dis ann esophageal lymph nodes. Fluid-filled stomach. There are multiple dilated air and fluid-filled loo ps of small bowel measuring up to 4.0 cm and the compressed angular loops of small bowel within the a bdominal right lower quadrant. No obstructing mass identified. Mild colonic diverticulosis without [place] diverticulitis. Prior appendectomy. Soft tissues are unremarkable. The bones appear to be intact. Bony fusion about the SI joints. Multilevel spondylitic spurring and facet arthrosis. IMPRESSION: 1. Multiple dilated, air and fluid-filled loops of small bowel throughout the abdomen and pelvis comp atible with small bowel obstruction with transition point within the abdominal right lower quadrant. Findings are likely secondary to underlying small bowel adhesions. 2. Trace abdominopelvic ascites, likely reactive. 3. No pneumatosis or pneumoperitoneum. 4. Moderate nonspecific circumferential wall thickening about the distal esophagus. 5. Mild colonic diverticulosis without acute diverticulitis. 6. Hepatic steatosis. 7. Additional findings as above. Electronically signed by: Augustine Lin M.D. 05/12/2018 7:14 PM
[2018-05-12] MEDS ORDERED: PIPERACILLIN/TAZOBACTAM 4.5 GM/120 ML BAG IV ONE (19:32)
[2018-05-12] MEDS ORDERED: SODIUM CHLORIDE 0.9% 1000ML 1,000 ML IV ONE (19:32)
[2018-05-12] MEDS ORDERED: PIPERACILL/TAZOBAC CONSULT ACTIVE PRN (19:32)
[2018-05-12 19:39] LABS: Appearance Urine Clear (Clear); Bacteria Urine Automated Negative (Negative); Bilirubin Urine Negative (Negative); Color Urine Dark Yellow; Glucose Urine UA Negative (Negative); Ketones Urine Negative (Negative); Leukocyte Esterase Urine Negative (Negative); Nitrite Urine Negative (Negative); Protein Urine Trace (Negative); Specific Gravity Urine > 1.045 (1.000-1.030); Urobilinogen Urine Negative (Negative)
[2018-05-12] MEDS: MoRPHine SULFATE 4 MG/ML 1 ML CARP\\VIAL IV PRN (19:40)
--- NOTE | 2018-05-12 21:34 | History & Physical Report ---
Date of Service May 12, 2018 Assessment & Plan (1) SBO (small bowel obstruction): 63 y/o M Hx CAD, HTN, HLD, VF, depression, GERD, SBO. The pt presents with lower abdominal pain, nausea and gagging x 1 day. He denies diarrhea or fevers. His last BM was early afternoon. The pt had an appendectomy several years ago and has had an SBO 4 yrs ago and 8 yrs ago, both resolved without surgery. A CT of the abdomen obtained in the ER is compatible with a small bowel obstruction with transition point in the right lower quadrant, likely secondary to underlying small bowel adhesions. 1) SBO - NPO, NGT, analgesics, antiemetics, IVF, surgery consult. 2) CAD - we will need to hold the majority of his meds. Due to his history of CAD, HTN, and VF, I have placed him on telemetry to continue his Metoprolol in IV form. 3) HTN - Metoprolol IV - can add Hydralazine if HTN is not controlled 4) GERD - c/o GERD on admission - IV protonix daily Full code - Heparin prophylaxis Total time for this admit including review of labs, meds, imaging, records - discussion with pt and ER attending - 34 min Present on Admission?: Yes History of Present Illness Chief Complaint: Abdominal pain, N/V Primary Care Provider: Akiko Decker PA-C 63 y/o M Hx CAD, HTN, HLD, VF, depression, GERD, SBO. The pt presents with lower abdominal pain, nausea and gagging x 1 day. He denies diarrhea or fevers. His last BM was early afternoon. The pt had an appendectomy several years ago and has had an SBO 4 yrs ago and 8 yrs ago, both resolved without surgery. A CT of the abdomen obtained in the ER is compatible with a small bowel obstruction with transition point in the right lower quadrant, likely secondary to underlying small bowel adhesions. 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 Does not smoke or drink. Family: Father at age 87 - [place] and CHF Mother due to multiple cancers Allergies Allergy/AdvReac Type Severity Reaction Status Date / Time bee venom protein (honey bee) Allergy Severe Anaphylaxis Verified 05/12/18 19:25 strawberry Allergy Mild Rash Verified 05/12/18 19:25 onion AdvReac Unknown Nausea Verified 05/12/18 19:25 Home Medications Home Medications Medication Instructions Recorded Confirmed Type acetaminophen-codeine 1 tab PO TID 02/09/18 05/12/18 History [Tylenol-Codeine #3] aspirin [Aspir-81] 81 mg PO DAILY 02/09/18 05/12/18 History cyclobenzaprine 10 mg PO TID 02/09/18 05/12/18 History ibuprofen [Advil Liqui-Gel] 200 mg PO QID PRN 02/09/18 05/12/18 History metoprolol tartrate 50 mg PO BID 02/09/18 05/12/18 History pantoprazole 40 mg PO BID 02/09/18 05/12/18 History polyethylene glycol 3350 [Miralax] 17 g PO DAILY 02/09/18 05/12/18 History pravastatin 40 mg PO DAILY 02/09/18 05/12/18 History amlodipine 2.5 mg PO DAILY 05/12/18 05/12/18 History Past Med/Surg History Medical History Myocardial infarction Small bowel obstruction Surgical History History of colonoscopy Social History Feels Safe at Home: Yes Smoking Status: Never smoker Preferred Language: Czech Review of Systems Gen: Denies fevers, night sweats, rigors, fatigue, malaise, weight loss/gain ENT: Denies congestion, throat pain, hearing loss Eyes: Denies acute visual changes CV: Denies CP, palpitations Pulmonary: Denies SOB, cough, wheezing GI: Abdominal pain and nausea as above Neuro: Denies acute or unilateral weakness, acute gait impairment, headache or acute visual changes Musculoskeletal: Denies joint pain, inflammation Endocrine: Denies polydipsia, polyuria Skin: Denies acute rashe or ulcers Physical Exam 2 Vital Signs (Past 24 Hours): Last Vital Signs Temp 36.5 C 05/12/18 17:41 Pulse 82 05/12/18 20:01 Resp 20 05/12/18 20:01 BP 130/72 05/12/18 20:01 Pulse Ox 95 05/12/18 20:01 Physical Exam: General: AAO x 3, no distress ENT: No erythema or exudates, no thrush Eyes: ADAMARIS, EOMI Head and neck: Normocephalic, atraumatic, No JVD, neck is supple. Chest/heart: Nontender, S1,2, RRR, no murmurs, no gallops Lungs: CTAB, no wheezing or crackles Abdomen: Distended, diffusely tender abdomen - BS + Neuro: AAO x 3, speech is clear, no unilateral weakness or loss of sensation, coordination intact Musculoskeletal: No joint inflammation, muscle tenderness, FROM Skin: No acute rashes or ulcers Extremities: No clubbing, cyanosis, edema Results & Data Diagnostic Findings CT abdomen: 1. Multiple dilated, air and fluid-filled loops of small bowel throughout the abdomen and pelvis compatible with small bowel obstruction with transition point within the abdominal right lower quadrant. Findings are likely secondary to underlying small bowel adhesions. 2. Trace abdominopelvic ascites, likely reactive. 3. No pneumatosis or pneumoperitoneum. 4. Moderate nonspecific circumferential wall thickening about the distal esophagus. 5. Mild colonic diverticulosis without acute diverticulitis. 6. Hepatic steatosis.
--- NOTE | 2018-05-12 22:24 | Surgery Consultation ---
Date of Consultation May 12, 2018 Assessment & Plan (1) SBO (small bowel obstruction): pt is a 63 year old male who presents to Er with one day history abdominal pain, IMP: SBO Plan, conservative treatment first, NPO, IV fluid, control pain, NG tube insertion, repeat labs in am, will F/u History of Present Illness History of Present Illness 63 y/o M Hx CAD, HTN, HLD, VF, depression, GERD, SBO. The pt presents with lower abdominal pain, nausea and gagging x 1 day. He denies diarrhea or fevers. His last BM was early afternoon. The pt had an appendectomy several years ago and has had an SBO 4 yrs ago and 8 yrs ago, both resolved without surgery. A CT of the abdomen obtained in the ER is compatible with a small bowel obstruction with transition point in the right lower quadrant, likely secondary to underlying small bowel adhesions. I got a call for consult this pt, I reviewed pt's H/P with pt, pt is still have some abdominal pain, with nausea, no vomiting, last BM today 3pm, Allergies Allergy/AdvReac Type Severity Reaction Status Date / Time bee venom protein (honey bee) Allergy Severe Anaphylaxis Verified 05/12/18 19:25 strawberry Allergy Mild Rash Verified 05/12/18 19:25 onion AdvReac Unknown Nausea Verified 05/12/18 19:25 Home Medications Home Medications Medication Instructions Recorded Confirmed Type acetaminophen-codeine 1 tab PO TID 02/09/18 05/12/18 History [Tylenol-Codeine #3] aspirin [Aspir-81] 81 mg PO DAILY 02/09/18 05/12/18 History cyclobenzaprine 10 mg PO TID 02/09/18 05/12/18 History ibuprofen [Advil Liqui-Gel] 200 mg PO QID PRN 02/09/18 05/12/18 History metoprolol tartrate 50 mg PO BID 02/09/18 05/12/18 History pantoprazole 40 mg PO BID 02/09/18 05/12/18 History polyethylene glycol 3350 [Miralax] 17 g PO DAILY 02/09/18 05/12/18 History pravastatin 40 mg PO DAILY 02/09/18 05/12/18 History amlodipine 2.5 mg PO DAILY 05/12/18 05/12/18 History Patient History Medical History Myocardial infarction Small bowel obstruction Surgical History History of colonoscopy Social History Feels Safe at Home: Yes Smoking Status: Never smoker Preferred Language: Bangladeshi Review of Systems Constitutional: as per Subjective / HPI Ear, Nose, Mouth, Throat: as per Subjective / HPI Respiratory: as per Subjective / HPI Cardiovascular: as per Subjective / HPI Additional Comments: [place] x2, cardiac stent, Gastrointestinal: as per Subjective / HPI SBO 4 years ago Genitourinary (Male): as per Subjective / HPI Neurologic: as per Subjective / HPI Psychiatric: as per Subjective / HPI Endocrine: as per Subjective / HPI Hematologic / Lymphatic: as per Subjective / HPI Physical Exam 2 Vital Signs (Past 24 Hours): Last Vital Signs Temp 36.5 C 05/12/18 17:41 Pulse 78 05/12/18 22:01 Resp 17 05/12/18 22:01 BP 117/71 05/12/18 22:01 Pulse Ox 98 05/12/18 22:01 Constitutional: WD/WN, vitals as above well developed and well nourished Neck: trachea midline, no thyromegaly Respiratory: normal respiratory effort, lungs clear to auscultation normal respiratory effort Cardiovascular: RRR, no murmur, no edema Rate/Rhythm: regular rate and regular rhythm Gastrointestinal (Abdomen): Percussion/Palpation: + abdomen tender and abdomen soft slightly tenderness at middle abdomen, no rebound pain, BS + Musculoskeletal: no cyanosis or clubbing, extremities motor strength 5/5 Neurologic: awake Psychiatric: Orientation: alert and oriented x 3 Results & Data Laboratory Results Abnormal lab results 05/12/18 05/12/18 05/12/18 Range/Units 17:50 17:50 19:20 WBC 11.87 H (4.8-10.8) K/uL RDW Std Deviation 46.5 H (36.4-46.3) fL MPV 10.9 H (7.4-10.4) fL Immature Gran # (Auto) 0.03 H (0.00-0.02) K/uL Neut # (Auto) 8.79 H (1.4-6.5) K/uL [place] # (Auto) 1.43 H (0.11-0.59) K/uL Sodium 135 L (136-145) mmol/L BUN 25 H (7-18) mg/dl Glucose 116 H (70-99) mg/dl Lipase 68 L (73-393) U/L Ur Specific [place] > 1.045 H (1.000-1.030) Urine Protein Trace H (Negative) Urine RBC (Auto) 5-10 H (0-4) /hpf U Hyaline Cast (Auto) 5-10 H (0-5) /lpf U Epithel Cells (Auto) 10-20 H (0-5) /lpf Diagnostic Findings ABDOMEN AND PELVIS CT WITH IV CONTRAST CT DOSE: 1028.14 mGy.cm HISTORY: Acute periumbilical abdominal pain abd pain TECHNIQUE: Multiaxial CT images of the abdomen and pelvis were performed following the use of intravenous contrast. A dose lowering technique was utilized adhering to the principles of ALARA. COMPARISON STUDY: CT abdomen and pelvis 01/12/2014. FINDINGS: Linear subsegmental atelectasis/scarring about the inferior segment lingula. Lung bases otherwise appear generally clear. No pneumatosis or pneumoperitoneum. Imaged inferior cardiac chambers appear unremarkable. Mural fibrofatty changes about the ventricular apex suggest prior myocardial infarction. Hepatic steatosis. No focal hepatic mass lesions. No evidence of cirrhosis. Patency of the hepatic and portal veins. Spleen is unremarkable. Trace perisplenic free fluid. Pancreas and adrenal glands appear unremarkable. Renal sinus cysts noted about the bilateral kidneys, left greater the right. No renal calculi or hydronephrosis. Partial distention of the bladder with circumferential wall thickening and mild perivesicular stranding. Trace free fluid about the pelvis. Prostate is unremarkable. Aorta and IVC are within normal limits. No adenopathy. Moderate circumferential wall thickening about the distal esophagus with scattered nonenlarged to distal esophageal lymph nodes. Fluid-filled stomach. There are multiple dilated air and fluid-filled loops of small bowel measuring up to 4.0 cm and the compressed angular loops of small bowel within the abdominal right lower quadrant. No obstructing mass identified. Mild colonic diverticulosis without acute diverticulitis. Prior appendectomy. Soft tissues are unremarkable. The bones appear to be intact. Bony fusion about the SI joints. Multilevel spondylitic spurring and facet arthrosis. IMPRESSION: 1. Multiple dilated, air and fluid-filled loops of small bowel throughout the abdomen and pelvis compatible with small bowel obstruction with transition point within the abdominal right lower quadrant. Findings are likely secondary to underlying small bowel adhesions. 2. Trace abdominopelvic ascites, likely reactive. 3. No pneumatosis or pneumoperitoneum. 4. Moderate nonspecific circumferential wall thickening about the distal esophagus. 5. Mild colonic diverticulosis without acute diverticulitis. 6. Hepatic steatosis. 7. Additional findings as above.
[2018-05-12] MEDS ORDERED: LORazepam 0.5 MG/1 ML VIAL IV PRN (23:10)
[2018-05-12] MEDS ORDERED: ONDANSETRON INJ 2 MG/ML 2 ML VIAL IV PRN (23:10)
[2018-05-12] MEDS: D5W AND NSS 1,000 ML IV SCH (23:42)
[2018-05-13] MEDS: METOPROLOL TARTRATE 1 MG/ML VIAL IV SCH ×5 (00:06→23:29)
[2018-05-13] MEDS: MoRPHine SULFATE 4 MG/ML 1 ML CARP\\VIAL IV PRN (00:10)
[2018-05-13] MEDS: HYDROmorphone INJ 0.5 MG/0.5 ML SYR IV PRN (07:20)
[2018-05-13] MEDS: D5W AND NSS 1,000 ML IV SCH ×2 (07:21→19:03)
[2018-05-13] MEDS ORDERED: BISACODYL 10 MG SUPP PR STA (10:26)
[2018-05-13] MEDS ORDERED: POLYETHYLENE (MIRALAX) 17 GM PACK PO ONE (10:28)
--- NOTE | 2018-05-13 10:40 | Surgery Progress Note ---
Date of Service May 13, 2018 Assessment & Plan (1) SBO (small bowel obstruction): Afebrile, vitals stable but some hypotension + flatus but no bowel movement abdominal pain improved, no n/v Plan: continue conservative treatment Will add PO Miralax one time dose and [place] Dulcolax Encouraged OOB to chair and ambulate to increase GI motility Limit narcotics if possible Would like to try to get him through this hospitalization without surgical intervention. If he continues to have recurring symptoms knowing the transition zone in RLQ may warrant elective outpatient lysis of adhesions. Continue medical management Dr. Cabrera has seen and examined pt, agrees with above Subjective feeling better today unable to place NGT on two attempts no nausea or vomiting moderate amount of gas but no bowel movement Physical Exam 2 Vital Signs (Past 24 Hours): Last Vital Signs Temp 37.1 C 05/13/18 07:15 Pulse 83 05/13/18 08:00 Resp 18 05/13/18 07:15 BP 104/67 05/13/18 07:15 Pulse Ox 95 05/13/18 07:15 Constitutional: WD/WN, vitals as above no acute distress Respiratory: normal respiratory effort; no respiratory distress Gastrointestinal (Abdomen): Inspection/Auscultation: abdomen normal to inspection Percussion/Palpation: + abdomen tender (mild) and abdomen soft; no guarding and abdomen not rigid Skin: no rashes, warm and dry Psychiatric: A+Ox3, euthymic affect Results & Data Laboratory Results 05/12/18 05/12/18 05/12/18 Range/Units 19:20 18:30 17:50 WBC (4.8-10.8) K/uL RBC (4.7-6.1) M/uL Hgb (14.0-18.0) g/dL Hct (42-52) % MCV (80-100) fL MCH (25-34) pg MCHC (32-36) g/dL RDW Std Deviation (36.4-46.3) fL RDW Coeff of Roxy (11.5-14.5) % Plt Count (130-400) K/uL MPV (7.4-10.4) fL Immature Gran % (Auto) % Neut % (Auto) % Lymph % (Auto) % [place] % (Auto) % Eos % (Auto) % Baso % (Auto) % Immature Gran # (Auto) (0.00-0.02) K/uL Neut # (Auto) (1.4-6.5) K/uL Lymph # (Auto) (1.2-3.4) K/uL [place] # (Auto) (0.11-0.59) K/uL Eos # (Auto) (0-0.5) K/uL Baso # (Auto) (0-0.2) K/uL PT 10.5 (9.0-12.0) Seconds INR 1.0 (0.9-1.1) APTT 24.0 (21.0-31.0) Seconds PTT Ratio 0.9 Sodium (136-145) mmol/L Potassium (3.5-5.1) mmol/L Chloride (98-107) mmol/L Carbon Dioxide (21-32) mmol/L Anion Gap (3-11) BUN (7-18) mg/dl Creatinine (0.6-1.4) mg/dl Est Cr Clr Drug Dosing ml/min Est GFR ( Amer) Est GFR (Non-Af Amer) BUN/Creatinine Ratio (10-20) Glucose (70-99) mg/dl Calcium (8.5-10.1) mg/dl Total Bilirubin (0.2-1) mg/dl AST (15-37) U/L ALT (12-78) U/L Alkaline Phosphatase (45-117) U/L Troponin I (0-0.045) ng/ml Total Protein (6.4-8.2) gm/dl Albumin (3.4-5.0) gm/dl Globulin (2.5-4.0) gm/dl Albumin/Globulin Ratio (0.9-2) Lipase (73-393) U/L Urine Color Dark Yellow Urine Appearance Clear (Clear) Urine pH 6.0 (4.5-7.5) Ur Specific [place] > 1.045 H (1.000-1.030) Urine Protein Trace H (Negative) Urine Glucose (UA) Negative (Negative) Urine Ketones Negative (Negative) Urine Blood Negative (Negative) Urine Nitrite Negative (Negative) Urine Bilirubin Negative (Negative) Urine Urobilinogen Negative (Negative) Ur Leukocyte Esterase Negative (Negative) Urine WBC (Auto) 1-5 (0-5) /hpf Urine RBC (Auto) 5-10 H (0-4) /hpf U Hyaline Cast (Auto) 5-10 H (0-5) /lpf U Epithel Cells (Auto) 10-20 H (0-5) /lpf Urine Bacteria (Auto) Negative (Negative) Hepatitis C Ab Screen Neg (Neg) 05/12/18 05/12/18 Range/Units 17:50 17:50 WBC 11.87 H (4.8-10.8) K/uL RBC 5.01 (4.7-6.1) M/uL Hgb 16.4 (14.0-18.0) g/dL Hct 48.5 (42-52) % MCV 96.8 (80-100) fL MCH 32.7 (25-34) pg MCHC 33.8 (32-36) g/dL RDW Std Deviation 46.5 H (36.4-46.3) fL RDW Coeff of Roxy 13.2 (11.5-14.5) % Plt Count 200 (130-400) K/uL MPV 10.9 H (7.4-10.4) fL Immature Gran % (Auto) 0.3 % Neut % (Auto) 74.0 % Lymph % (Auto) 11.8 % [place] % (Auto) 12.0 % Eos % (Auto) 1.7 % Baso % (Auto) 0.2 % Immature Gran # (Auto) 0.03 H (0.00-0.02) K/uL Neut # (Auto) 8.79 H (1.4-6.5) K/uL Lymph # (Auto) 1.40 (1.2-3.4) K/uL [place] # (Auto) 1.43 H (0.11-0.59) K/uL Eos # (Auto) 0.20 (0-0.5) K/uL Baso # (Auto) 0.02 (0-0.2) K/uL PT (9.0-12.0) Seconds INR (0.9-1.1) APTT (21.0-31.0) Seconds PTT Ratio Sodium 135 L (136-145) mmol/L Potassium 4.4 (3.5-5.1) mmol/L Chloride 104 (98-107) mmol/L Carbon Dioxide 23 (21-32) mmol/L Anion Gap 8.0 (3-11) BUN 25 H (7-18) mg/dl Creatinine 1.38 (0.6-1.4) mg/dl Est Cr Clr Drug Dosing 66.0 ml/min Est GFR ( Amer) 63.1 Est GFR (Non-Af Amer) 54.4 BUN/Creatinine Ratio 18.2 (10-20) Glucose 116 H (70-99) mg/dl Calcium 9.0 (8.5-10.1) mg/dl Total Bilirubin 0.8 (0.2-1) mg/dl AST 21 (15-37) U/L ALT 47 (12-78) U/L Alkaline Phosphatase 74 (45-117) U/L Troponin I < 0.015 (0-0.045) ng/ml Total Protein 8.1 (6.4-8.2) gm/dl Albumin 4.1 (3.4-5.0) gm/dl Globulin 4.0 (2.5-4.0) gm/dl Albumin/Globulin Ratio 1.0 (0.9-2) Lipase 68 L (73-393) U/L Urine Color Urine Appearance (Clear) Urine pH (4.5-7.5) Ur Specific [place] (1.000-1.030) Urine Protein (Negative) Urine Glucose (UA) (Negative) Urine Ketones (Negative) Urine Blood (Negative) Urine Nitrite (Negative) Urine Bilirubin (Negative) Urine Urobilinogen (Negative) Ur Leukocyte Esterase (Negative) Urine WBC (Auto) (0-5) /hpf Urine RBC (Auto) (0-4) /hpf U Hyaline Cast (Auto) (0-5) /lpf U Epithel Cells (Auto) (0-5) /lpf Urine Bacteria (Auto) (Negative) Hepatitis C Ab Screen (Neg)
[2018-05-13] MEDS: PANTOprazole 40 MG in SYRINGE 0 ML IV SCH (10:53)
[2018-05-13] MEDS: ACETAMINOPHEN 1000 MG/100 ML IV IV PRN (16:35)
--- NOTE | 2018-05-13 20:26 | Hospitalist Progress Note ---
Date of Service May 13, 2018 Assessment & Plan (1) SBO (small bowel obstruction): clincially improving with passage of flatus/stool. continue conservative Rx at this time. appreciate gen surg assistance. KUB in am. cont NPO status except for meds. SBO is likely on basis of adhesions. (2) Chronic pain syndrome: resume oral pain meds once eating well and SBO is resolved. cont IV pain meds in meantime. can resume chronic flexeril. (3) Chronic back pain: as above (4) DVT prophylaxis: add lovenox daily in AM (5) Hyperlipidemia: hold statin for now (6) Essential hypertension: BPs low or low-normal reduce dose of metoprolol IV to 2.5mg q6h (7) CAD (coronary artery disease): no ischemic symptoms at this time cont BB resume asa once taking PO resume statin once taking PO (8) Esophagitis: IV PPI twice daily will recommend GI referral after d/c for EGD Subjective patient started to pass flatus this AM, then had 2 liquid BMs since then no vomiting no nausea asks about his chronic pain meds (tylenol w/ codeine) for his back overall feels better but still feels bloated Constitutional: no fever Respiratory: no dyspnea Cardiovascular: no chest pain Gastrointestinal: + bloating; no abdominal pain, no nausea and no vomiting Physical Exam 2 Vital Signs (Past 24 Hours): Last Vital Signs Temp 36.7 C 05/13/18 19:21 Pulse 83 05/13/18 19:21 Resp 18 05/13/18 19:21 BP 95/60 L 05/13/18 19:21 Pulse Ox 92 05/13/18 19:21 Constitutional: well developed, well nourished and + obese; no acute distress and not ill appearing ENMT: external ear and nose normal, oropharynx normal Respiratory: normal respiratory effort, lungs clear to auscultation Cardiovascular: RRR, no murmur, no edema Heart Sounds: normal S1 and normal S2 Vessels: posterior tibial pulses present and dorsalis pedis pulses present; no JVD Gastrointestinal (Abdomen): Inspection/Auscultation: + abdomen distended and normal bowel sounds Percussion/Palpation: + abdomen tender; no guarding, abdomen not rigid and no hepatosplenomegaly Psychiatric: A+Ox3, euthymic affect Results & Data Laboratory Results Laboratory Results - last 24 hr 05/12/18 18:30 Hepatitis C Ab Screen Neg _ (1) Chronic back pain Back pain location: back pain in unspecified location Back pain laterality: unspecified Qualified Code(s): M54.9 - Dorsalgia, unspecified; G89.29 - Other chronic pain
[2018-05-13] MEDS: CYCLOBENZAPRINE HCL 10 MG TAB PO SCH (20:39)
[2018-05-14] MEDS: D5W AND NSS 1,000 ML IV SCH ×3 (01:07→17:50)
[2018-05-14] MEDS: METOPROLOL TARTRATE 1 MG/ML VIAL IV SCH ×2 (05:43→12:00)
[2018-05-14 06:29] LABS: Hematocrit (blood only) 40.6 % (42-52); Hemoglobin 13.6 g/dL (14.0-18.0); Mean Corpuscular Hgb Conc 33.5 g/dL (32-36); Mean Corpuscular Volume 99.3 fL (80-100); Mean Platelet Volume 10.6 fL (7.4-10.4); Platelet Count 155 K/uL (130-400); RDW Coefficient of Variation 12.9 % (11.5-14.5); Red Blood Count 4.09 M/uL (4.7-6.1); White Blood Count 5.69 K/uL (4.8-10.8)
[2018-05-14 07:12] LABS: BUN Creatinine Ratio 9.9 (10-20); Calcium 8.1 mg/dl (8.5-10.1); Creatinine Clr Calc Pharmacy 80.5 ml/min; Est GFR (African American) 80.3; Est GFR (Non-African American) 69.3; Magnesium 2.1 mg/dl (1.8-2.4); Potassium 3.5 mmol/L (3.5-5.1)
--- NOTE | 2018-05-14 07:14 | XRay Report ---
KUB HISTORY: Follow-up study in a patient with small bowel obstruction SBO COMPARISON: CT abdomen and pelvis 05/12/2018. FINDINGS: Resistant. Decreased small bowel dilation with small bowel loops of the left midabdomen penny suring up to 4.7 cm.. There is no organomegaly. No renal calculi. No ureteral calculi. Surgical clip projects over the right hemipelvis. Pelvic basin calcifications suggest phleboliths. No pneumoperito neum or pneumatosis. No fracture. IMPRESSION: Persistent yet decreased small bowel dilation suggests ongoing small bowel obstruction. Continued fol low-up recommended. Electronically signed by: Augustine Lin M.D. 05/14/2018 7:12 AM
[2018-05-14] MEDS: HYDROmorphone INJ 0.5 MG/0.5 ML SYR IV PRN ×2 (07:34→21:53)
[2018-05-14] MEDS: CYCLOBENZAPRINE HCL 10 MG TAB PO SCH ×3 (07:37→20:53)
[2018-05-14] MEDS: ENOXAPARIN INJ 40 MG/0.4 ML SYR SQ SCH (07:40)
--- NOTE | 2018-05-14 13:20 | Surgery Progress Note ---
Date of Service May 14, 2018 Assessment & Plan (1) SBO (small bowel obstruction): Slowly resolving Afebrile, vitals stable + flatus and bowel movement abdominal pain improved, no n/v Plan: continue conservative treatment Advance to clear liquids, advised to go slowly Encouraged OOB to chair and ambulate to increase GI motility Limit narcotics if possible Would like to try to get him through this hospitalization without surgical intervention. If he continues to have recurring symptoms knowing the transition zone in RLQ may warrant elective outpatient lysis of adhesions. Continue medical management Subjective feeling better no nausea or vomiting + 5 bowel movements last night (did not take suppository or Miralax yesterday since he had bowel movements without) still feels a little bloated passing gas today Physical Exam 2 Vital Signs (Past 24 Hours): Last Vital Signs Temp 36.7 C 05/14/18 11:39 Pulse 80 05/14/18 11:39 Resp 19 05/14/18 11:39 BP 114/69 05/14/18 11:39 Pulse Ox 97 05/14/18 11:39 Constitutional: WD/WN, vitals as above no acute distress Respiratory: normal respiratory effort; no respiratory distress Gastrointestinal (Abdomen): Inspection/Auscultation: abdomen normal to inspection, + abdomen distended (mild but improved) and normal bowel sounds Percussion/Palpation: + abdomen tender (mild) and abdomen soft; no guarding and abdomen not rigid Skin: no rashes, warm and dry Psychiatric: A+Ox3, euthymic affect Results & Data Laboratory Results 05/14/18 05/14/18 Range/Units 06:02 06:02 WBC 5.69 (4.8-10.8) K/uL RBC 4.09 L (4.7-6.1) M/uL Hgb 13.6 L (14.0-18.0) g/dL Hct 40.6 L (42-52) % MCV 99.3 (80-100) fL MCH 33.3 (25-34) pg MCHC 33.5 (32-36) g/dL RDW Std Deviation 47.0 H (36.4-46.3) fL RDW Coeff of Roxy 12.9 (11.5-14.5) % Plt Count 155 (130-400) K/uL MPV 10.6 H (7.4-10.4) fL Sodium 139 (136-145) mmol/L Potassium 3.5 D (3.5-5.1) mmol/L Chloride 106 (98-107) mmol/L Carbon Dioxide 26 (21-32) mmol/L Anion Gap 6.0 (3-11) BUN 11 D (7-18) mg/dl Creatinine 1.13 (0.6-1.4) mg/dl Est Cr Clr Drug Dosing 80.5 ml/min Est GFR ( Amer) 80.3 Est GFR (Non-Af Amer) 69.3 BUN/Creatinine Ratio 9.9 L (10-20) Glucose 102 H (70-99) mg/dl Calcium 8.1 L (8.5-10.1) mg/dl Magnesium 2.1 (1.8-2.4) mg/dl
[2018-05-14] MEDS: PANTOprazole 40 MG in SYRINGE 0 ML IV SCH ×2 (13:25→13:28)
--- NOTE | 2018-05-14 18:21 | Hospitalist Progress Note ---
Date of Service May 14, 2018 Assessment & Plan (1) SBO (small bowel obstruction): likely due to adhesions from prior surgery SBO clinically & radiographically improved cont clears cut fluid rate ambulate appreciate surgical consultation (2) Chronic pain syndrome: resume oral pain meds once eating well and SBO is resolved. cont IV pain meds in meantime. resumed chronic flexeril. (3) Chronic back pain: as above (4) DVT prophylaxis: lovenox 40mg daily (5) Hyperlipidemia: hold statin for now (6) Essential hypertension: stop IV lopressor resume oral lopressor albeit at lower dose of 25 BID hold amlodipine (7) CAD (coronary artery disease): no ischemic symptoms at this time cont BB resume asa once taking PO reliably resume statin once taking PO reliably (8) Esophagitis: cont PPI but convert to oral GI referral after d/c for consideration of EGD overall nicely improved stop tele status --- ok to move to med/surg Subjective passing copious amounts of flatus & stools started on clears by surgery - tolerating this w/o nausea or emesis or abd pain abd distension improved feels good tele normal overnight Constitutional: no fever Respiratory: no dyspnea Cardiovascular: no chest pain Physical Exam 2 Vital Signs (Past 24 Hours): Last Vital Signs Temp 36.6 C 05/14/18 16:00 Pulse 73 05/14/18 16:00 Resp 18 05/14/18 16:00 BP 135/76 05/14/18 16:00 Pulse Ox 100 05/14/18 16:00 Constitutional: well developed, well nourished and + obese; no acute distress and not ill appearing ENMT: external ear and nose normal, oropharynx normal Respiratory: normal respiratory effort, lungs clear to auscultation Cardiovascular: RRR, no murmur, no edema Heart Sounds: normal S1 and normal S2 Vessels: posterior tibial pulses present and dorsalis pedis pulses present; no JVD Gastrointestinal (Abdomen): Inspection/Auscultation: + abdomen distended ( significant improvement today relative to yesterday's exam) and normal bowel sounds Percussion/Palpation: abdomen nontender, no guarding, abdomen not rigid and no hepatosplenomegaly Psychiatric: A+Ox3, euthymic affect Results & Data Laboratory Results Laboratory Results - last 24 hr 05/14/18 05/14/18 06:02 06:02 WBC 5.69 RBC 4.09 L Hgb 13.6 L Hct 40.6 L MCV 99.3 MCH 33.3 MCHC 33.5 RDW Std Deviation 47.0 H RDW Coeff of Roxy 12.9 Plt Count 155 MPV 10.6 H Sodium 139 Potassium 3.5 D Chloride 106 Carbon Dioxide 26 Anion Gap 6.0 BUN 11 D Creatinine 1.13 Est Cr Clr Drug Dosing 80.5 Est GFR ( Amer) 80.3 Est GFR (Non-Af Amer) 69.3 BUN/Creatinine Ratio 9.9 L Glucose 102 H Calcium 8.1 L Magnesium 2.1 _ (1) Chronic back pain Back pain laterality: unspecified Back pain location: back pain in unspecified location Sciatica laterality: Sciatica presence: Qualified Code (s): M54.9 - Dorsalgia, unspecified; G89.29 - Other chronic pain
[2018-05-14] MEDS: METOPROLOL TARTRATE 25 MG TAB PO SCH (20:54)
[2018-05-14] MEDS: DICLOFENAC SOD 1% GEL 100 GM TUBE EXT SCH (20:55)
[2018-05-14] MEDS: PANTOprazole 40 MG TAB PO SCH (21:12)
[2018-05-15] MEDS: ACETAMINOPHEN 1000 MG/100 ML IV IV PRN (04:01)
[2018-05-15] MEDS: D5W AND NSS 1,000 ML IV SCH (05:41)
[2018-05-15 07:09] LABS: BUN Creatinine Ratio 6.9 (10-20); Calcium 7.9 mg/dl (8.5-10.1); Creatinine Clr Calc Pharmacy 82.7 ml/min; Est GFR (African American) 82.9; Est GFR (Non-African American) 71.6; Potassium 3.5 mmol/L (3.5-5.1)
[2018-05-15] MEDS: METOPROLOL TARTRATE 25 MG TAB PO SCH (09:00)
[2018-05-15] MEDS: PANTOprazole 40 MG TAB PO SCH (09:00)
[2018-05-15] MEDS: ENOXAPARIN INJ 40 MG/0.4 ML SYR SQ SCH (09:01)
[2018-05-15] MEDS: DICLOFENAC SOD 1% GEL 100 GM TUBE EXT SCH (09:01)
[2018-05-15] MEDS: CYCLOBENZAPRINE HCL 10 MG TAB PO SCH (09:01)
--- NOTE | 2018-05-15 09:54 | Surgery Progress Note ---
Date of Service May 15, 2018 Assessment & Plan (1) SBO (small bowel obstruction): Resolving -vss -afebrile - + bowel function - no abdominal pain Plan: Advance diet to full liquids and then as tolerated Encourage ambulation and OOB to chair Recommend low fiber diet on discharge for 2 weeks Okay from surgical standpoint for discharge today F/u with Dr. Cabrera in a few weeks, if still symptomatic or any pain could consider elective lysis of adhesions. Dr. Cabrera has seen and examined pt, agrees with above Subjective feeling well, no abdominal pain + flatus, more bowel movements yesterday tolerating clear liquids Physical Exam 2 Vital Signs (Past 24 Hours): Last Vital Signs Temp 36.7 C 05/15/18 06:00 Pulse 77 05/15/18 06:00 Resp 21 05/15/18 06:00 BP 134/78 05/15/18 06:00 Pulse Ox 98 05/15/18 06:00 Constitutional: WD/WN, vitals as above no acute distress Respiratory: normal respiratory effort; no respiratory distress Gastrointestinal (Abdomen): Inspection/Auscultation: abdomen normal to inspection and normal bowel sounds; abdomen not distended Percussion/ Palpation: + abdomen tender (very mild in RLQ, improved) and abdomen soft; no guarding and abdomen not rigid Skin: no rashes, warm and dry Psychiatric: A+Ox3, euthymic affect Results & Data Laboratory Results 05/15/18 Range/Units 06:08 Sodium 139 (136-145) mmol/L Potassium 3.5 (3.5-5.1) mmol/L Chloride 109 H (98-107) mmol/L Carbon Dioxide 25 (21-32) mmol/L Anion Gap 5.0 (3-11) BUN 8 (7-18) mg/dl Creatinine 1.10 (0.6-1.4) mg/dl Est Cr Clr Drug Dosing 82.7 ml/min Est GFR ( Amer) 82.9 Est GFR (Non-Af Amer) 71.6 BUN/Creatinine Ratio 6.9 L (10-20) Glucose 89 (70-99) mg/dl Calcium 7.9 L (8.5-10.1) mg/dl
--- NOTE | 2018-05-23 15:09 | Discharge Summary ---
Date of Service date of admission: 05/12/18 date of discharge: 05/15/18 Admission HPI Per Admitting Provider 63 y/o male with history of CAD, HTN, ventricular fibrillation associated with an acute WI, depression, GERD, and prior SBO. The patient presented with lower abdominal pain, nausea and gagging x 1 day. He denied diarrhea or fevers. His last BM was early afternoon. The patient had an appendectomy several years ago and had an SBO 4 yrs ago and 8 yrs ago. Both resolved without surgery. A CT of the abdomen obtained in the ER was compatible with a small bowel obstruction with transition point in the right lower quadrant, likely secondary to underlying small bowel adhesions. Principal Diagnosis Small Bowel Obstruction - resolved Discharge Exam Constitutional well developed, well nourished and + obese; no acute distress and not ill appearing ENMT external ear and nose normal, oropharynx normal Respiratory normal respiratory effort, lungs clear to auscultation Cardiovascular RRR, no murmur, no edema Heart Sounds: normal S1 and normal S2 Vessels: posterior tibial pulses present and dorsalis pedis pulses present; no JVD Gastrointestinal (Abdomen) normal bowel sounds, soft, nontender, no hepatosplenomegaly Inspection/Auscultation: abdomen not distended (resolved) Psychiatric A+Ox3, euthymic affect Discharge Data Allergies Allergy/AdvReac Type Severity Reaction Status Date / Time bee venom protein (honey bee) Allergy Severe Anaphylaxis Verified 05/12/18 19:25 strawberry Allergy Mild Rash Verified 05/12/18 19:25 onion AdvReac Mild Nausea Verified 05/14/18 19:29 Consultations general surgery Ordered Studies CT abd/pelvis: IMPRESSION: 1. Multiple dilated, air and fluid-filled loops of small bowel throughout the abdomen and pelvis compatible with small bowel obstruction with transition point within the abdominal right lower quadrant. Findings are likely secondary to underlying small bowel adhesions. 2. Trace abdominopelvic ascites, likely reactive. 3. No pneumatosis or pneumoperitoneum. 4. Moderate nonspecific circumferential wall thickening about the distal esophagus. 5. Mild colonic diverticulosis without acute diverticulitis. 6. Hepatic steatosis. Hospital Course (1) SBO (small bowel obstruction): Was likely due to adhesions from prior abdominal surgery. Attempts at NG tube placement were unsuccessful. He was treated with IVF, bowel rest, and pain medication. He ultimately started to pass flatus and stool. Clear liquid diet was resumed and this was advanced to full liquids without difficulty. He was tolerating this level of diet prior to discharge. General surgery was consulted while he was here and they provided luna recommendations for his care. At discharge he was asked to slowly advance his diet to a low fiber diet over 1- 2 days. Then, he was advised to follow a low fiber diet for 10-14 days post-discharge. (2) Chronic pain syndrome: He will continue his usual tylenol w/ codeine & flexeril for chronic back pain as previous. (3) Chronic back pain: as above (4) Hyperlipidemia: He will continue on statin therapy at discharge. (5) Essential hypertension: All home meds were resumed at discharge. BPs were controlled while here. (6) CAD (coronary artery disease): No ischemic symptoms during this stay. He will continue aspirin, beta geri, and statin. (7) Esophagitis: Incidentally on CT abd/pelvis there was moderate nonspecific circumferential wall thickening about the distal esophagus. This is concerning for esophagitis or other pathology. He was advised to continue his PPI twice daily and to consult with his GI specialist for consideration of EGD. Total Time Total Time Spent Total Time Spent (In Minutes): 30 Total Time Includes: Examination of the Patient, Discharge Planning and Medication Reconciliation Discharge Plan Discharge Items Patient Disposition: Home - Self-Care Reason For Visit: SBO (small bowel obstruction) Discharge Diagnosis: Small bowel obstruction - resolving Discharge Goals: Diagnostic testing and Therapeutic intervention Activity: Resume your previous activity Activity Comment: as tolerated Non-emergency contact: Primary Care Provider Call non-emergency contact if: you have any medication questions, your symptoms worsen and your temperature is above 100.5 Follow-up/Referrals: Akiko Decker PA-C [Primary Care Provider] - 05/22/18 7:50 am (Please, follow up with Akiko Decker PA-C on FridayMay 22 at 7:50 am. *If you need to change this appointment, call the office at [phone].) Kinza Cabrera MD [Physician] - (you can contact Dr. Cabrera's office if needed/ desired with any further issues related to the small bowel obstruction) Diet: Full liquid Addtl Provider Instructions: From Bobby Nino - Hospitalist - You were admitted and treated for a bowel obstruction. This was likely due to adhesions (scar tissue) in the abdominal cavity. The small bowel obstruction resolved with conservative measures including bowel rest, fluids, and time. Diet - * for the next 24 hours please follow a "full liquids" diet * full liquids includes all clear liquids (yakut ice, gatorade, caffeine-free sodas, juice, jello, etc) as well as dairy products (cream-based soup, yogurt, pudding, ice cream) * after about 24-36 hours you can gradually start to increase your diet and add in more solid foods * however, please follow a LOW FIBER diet as you add in more solids * foods that are HIGH in fiber include certain cereals, beans, excessive amounts of fruits/veggies, etc; try to avoid consumption of these for the next 2 weeks If you experience any recurrent nausea, vomiting, abdominal bloating, abdominal pain, etc please seek medical attention right away. You can use the voltaren gel on your right shoulder up to 4 times a day as needed/desired. Lastly, your CAT scan of the abdomen showed irritation of your esophagus. Please continue your pantoprazole but be sure to schedule an appointment with your GI (Gastrointestinal) doctor to have an upper endoscopy (EGD). Follow-up - * see your family doctor within 1 week * see Dr. Cabrera, surgery, as needed Return to [facility] if - * you have fevers over 100.5 degrees * you have worsening abdominal pain, nausea, or vomiting * any other concerns Prescriptions: New diclofenac sodium [Voltaren] 1 % Gel 1 applic EXT QID Qty: 1 RF: 0 Continue aspirin [Aspir-81] 81 mg Tablet,Delayed Release (Dr/Ec) 81 mg PO DAILY RF: 0 acetaminophen-codeine [Tylenol-Codeine #3] 300-30 mg Tablet 1 tab PO TID RF: 0 cyclobenzaprine 10 mg Tablet 10 mg PO TID RF: 0 pantoprazole 40 mg Tablet,Delayed Release (Dr/Ec) 40 mg PO BID RF: 0 metoprolol tartrate 50 mg Tablet 50 mg PO BID RF: 0 pravastatin 40 mg Tablet 40 mg PO DAILY RF: 0 ibuprofen [Advil Liqui-Gel] 200 mg Capsule 200 mg PO QID PRN (Reason: Pain) RF: 0 polyethylene glycol 3350 [Miralax] 17 gram/dose Powder 17 g PO DAILY RF: 0 amlodipine 2.5 mg tablet 2.5 mg PO DAILY RF: 0 Stand-Alone Forms: [facility] Discharge Orders: Discharge Order (Routine); Ordered 05/15/18 Ordered By: Bobby Nino Admission Data Admit Date/Time: 05/12/18 21:41 Attending Provider: Bobby Nino Admit Provider: Grant Allison Primary Care Provider: Akiko Decker Other Providers: Kinza Cabrera Service: Medical Other Interventions: Discharge Summary Assessment (RN) Last Done: 05/15/18 13:29 Pending Studies at Discharge: No DC Date/Time DO NOT enter until pt leaves facility: 05/15/18 14:15
== END 2018-05-15 14:15 | disposition home or self-care (01) | DRG 390 ==
LOC: ED 17:12 → SUATTDRO 21:41 → 2S 21:41 → 4W 05-14 17:43
DX: Z79.899 Other long term (current) drug therapy; Z87.19 Personal history of other diseases of the digestive system; Z90.49 Acquired absence of other specified parts of digestive tract; E66.3 Overweight; K21.0 Gastro-esophageal reflux disease with esophagitis; G89.4 Chronic pain syndrome; Z68.36 Body mass index [BMI] 36.0-36.9, adult; I25.10 Atherosclerotic heart disease of native coronary artery without angina pectoris; K56.50 Intestinal adhesions [bands], unspecified as to partial versus complete obstruction; Z79.82 Long term (current) use of aspirin; Z51.81 Encounter for therapeutic drug level monitoring; I10 Essential (primary) hypertension; Z82.49 Family history of ischemic heart disease and other diseases of the circulatory system; Z95.5 Presence of coronary angioplasty implant and graft; Z91.030 Bee allergy status; Z91.018 Allergy to other foods; I25.2 Old myocardial infarction

== ENCOUNTER 2019-07-24 20:10 | Inpatient (IN) ==
[2019-07-24] MEDS ORDERED: SODIUM CHLORIDE 0.9% 1000ML 1,000 ML IV ONE (20:26)
[2019-07-24] MEDS ORDERED: ONDANSETRON INJ 2 MG/ML 2 ML VIAL IV STA (20:26)
[2019-07-24] MEDS ORDERED: HYDROmorphone INJ 1 MG/ML SYRINGE IV STA ×2 (20:26→23:03)
--- NOTE | 2019-07-24 20:32 | Emergency Department Note ---
History of Present Illness General Chief complaint: Abdominal Pain Stated complaint: BLOATING, VOMITING, ABD PAIN Time Seen by Provider: 07/24/19 20:15 History of Present Illness Provider complaint: abdominal pain Onset (ago): hour(s) (5.5) Location: abdomen Pain Consistency: + intermittent Maximum Pain Intensity: 5 Quality: + sharp 64-year-old male presents emergency department with abdominal pain. Pain began at 3 PM. Notes at 6 PM he began vomiting. No hematemesis, coffee-ground emesis, or bilious vomiting. No medications here or melena. No dysuria or hematuria. Patient states he has a history of small bowel obstructions and it feels similar. He reports feeling nausea. Patient also reports he fell from a ladder approximately 2 and half feet yesterday. He states he hit his head pretty backslash or if he lost consciousness. Reports hip pain. Home Medications Home Medications Medication Instructions Recorded Confirmed Type acetaminophen-codeine 1 tab PO TID 02/09/18 07/24/19 History [Tylenol-Codeine #3] aspirin [Aspir-81] 81 mg PO BID 02/09/18 07/24/19 History cyclobenzaprine 10 mg PO TID 02/09/18 07/24/19 History ibuprofen [Advil Liqui-Gel] 200 mg PO QID PRN 02/09/18 07/24/19 History pantoprazole 40 mg PO BID 02/09/18 07/24/19 History amlodipine 2.5 mg PO DAILY 05/12/18 07/24/19 History ezetimibe [Zetia] 10 mg PO DAILY 11/11/18 07/24/19 History diclofenac sodium [Voltaren] 1 applic EXT QID PRN 07/24/19 07/24/19 History Allergies Allergy/AdvReac Type Severity Reaction Status Date / Time bee venom protein (honey bee) Allergy Severe Anaphylaxis Verified 07/24/19 21:08 adhesive Allergy Intermediate REDDENED, Verified 07/24/19 21:08 ITCHY, IRRITATED SKIN strawberry Allergy Mild Rash Verified 07/24/19 21:08 celecoxib [From Celebrex] AdvReac Intermediate NAUSEA, Verified 07/24/19 21:08 RAMIREZ, CHEST FELT TIGHT onion AdvReac Mild Nausea Verified 07/24/19 21:08 Past Med/Surg History Medical History Myocardial infarction SBO (small bowel obstruction) Small bowel obstruction (Acute) Surgical History History of colonoscopy Family History Other No significant family history Social History Preferred Language: Kyrgyz Communication Ability: Effective Beliefs That Will Affect Care: None Current Living Situation: Family Feels Safe at Home: Yes Smoking Status: Never smoker Hx Substance Use: No Review of Systems A total of 10 systems reviewed and were otherwise negative Physical Exam Vital Signs Vital Signs - 24 hr 07/24/19 20:12 07/24/19 20:39 07/24/19 21:10 Temperature 36.7 C Temperature Source Oral Pulse Rate 143 H 111 H 105 H Pulse Rate from SpO2 Sensor 112 H 106 H Pulse Rhythm Regular Respiratory Rate 22 16 27 H Respiratory Effort / Characteristics Non-Labored Spontaneous Respiratory Depth Normal Blood Pressure 170/97 H 157/84 H Blood Pressure Mean 121 110 Blood Pressure Position Sitting Pulse Oximetry 96 96 94 Oxygen Delivery Method Room Air Room Air Sepsis Recent Fever Within 48 Hours No Sepsis Action Taken by Nursing No Action Required 07/24/19 21:20 07/24/19 22:00 Temperature Temperature Source Pulse Rate 101 H 98 H Pulse Rate from SpO2 Sensor 100 H 98 H Pulse Rhythm Respiratory Rate 22 18 Respiratory Effort / Characteristics Respiratory Depth Blood Pressure 164/97 H Blood Pressure Mean 119 Blood Pressure Position Pulse Oximetry 94 95 Oxygen Delivery Method Sepsis Recent Fever Within 48 Hours Sepsis Action Taken by Nursing Physical Exam GENERAL: He is oriented to person, place, and time. He appears well-developed and well-nourished. He does not appear distressed. HENT: Exam performed. - Head: Normocephalic and atraumatic. - Right Ear: External ear normal. No mastoid tenderness. - Left Ear: External ear normal. No mastoid tenderness. - Mouth/Throat: The oropharynx is clear and moist. No trismus in the jaw. No dental abscesses or uvula swelling. No oropharyngeal exudate or tonsillar abscesses. EYES: Conjunctivae and EOM are normal. Pupils are equal, round, and reactive to light. Right eye exhibits no discharge. Left eye exhibits no discharge. No scleral icterus. NECK: Normal range of motion. Neck supple. No JVD present. No spinous process tenderness present. No carotid bruit present. No rigidity. No tracheal deviation and normal range of motion present. No Brudzinski's sign and no Kernig's sign noted. CV: Tachycardic rate, regular rhythm, normal heart sounds and intact distal pulses. There is no peripheral edema. Palpable radial pulses bue. PULM/CHEST: Effort normal and breath sounds normal. No respiratory distress. No stridor. He has no wheezes. He has no rales. - Chest Wall: He exhibits no tenderness. ABD: The abdomen is distended. He has no distension. No mass is present. There is diffuse pain on palpation of the abdomen. There is no rebound, no guarding, no Mccallum's sign and no tenderness at McBurney's point. Rovsig negative. MUSC/SKEL: Normal range of motion. There is no peripheral edema, tenderness or deformity. LYMPH: No cervical adenopathy. NEURO: He is alert and oriented to person, place, and time. He has normal strength. No cranial nerve deficit or sensory deficit. Coordination and gait normal. GCS eye subscore is 4. GCS verbal subscore is 5. GCS motor subscore is 6. Cerebellar tests wnl. SKIN: Skin is warm and dry. He is not diaphoretic. PSYCH: He has a normal mood and affect. Behavior is normal. Judgment and thought content normal. Course Course 2020: The patient was evaluated in room C8. A complete history and physical exam was performed. 2252: Vital signs stable. CT shows small bowel obstruction otherwise imaging within normal limits. Labs within normal limits. Patient will be admitted to [facility] team Dr. Anderson will accept the patient. Administered Medications Ioversol (Optiray 320 100ml) 90 ml IV ONCE PRN PRN Reason: Interaction Checking Stop: 07/28/19 21:39 Last Admin: 07/24/19 21:40 Dose: 90 ml Documented by: [id number] Discontinued Medications Hydromorphone HCl (Dilaudid) 1 mg IV NOW STA Stop: 07/24/19 20:27 Last Admin: 07/24/19 20:37 Dose: 1 mg Documented by: [id number] Sodium Chloride (Nss 1000ml) 1,000 mls @ 999 mls/hr IV .Q1H1M ONE Stop: 07/24/19 21:26 Last Infusion: 07/24/19 21:34 Dose: 0 mls/hr Documented by: [id number] Admin: 07/24/19 20:37 Dose: 999 mls/hr Documented by: [id number] Ondansetron HCl (Zofran) 4 mg IV NOW STA Stop: 07/24/19 20:27 Last Admin: 07/24/19 20:37 Dose: 4 mg Documented by: [id number] Medical Decision Making Laboratory Data Result diagrams: 07/24/19 20:33 07/24/19 20:33 Lab Results 07/24/19 07/24/19 07/24/19 Range/Units 20:33 20:33 20:33 WBC 9.57 (4.8-10.8) K/uL RBC 4.80 (4.7-6.1) M/uL Hgb 15.7 (14.0-18.0) g/dL Hct 47.0 (42-52) % MCV 97.9 (80-100) fL MCH 32.7 (25-34) pg MCHC 33.4 (32-36) g/dL RDW Std Deviation 49.4 H (36.4-46.3) fL RDW Coeff of Roxy 13.8 (11.5-14.5) % Plt Count 246 (130-400) K/uL MPV 10.0 (7.4-10.4) fL Immature Gran % (Auto) 0.1 % Neut % (Auto) 76.1 % Lymph % (Auto) 12.2 % [place] % (Auto) 10.0 % Eos % (Auto) 1.4 % Baso % (Auto) 0.2 % Immature Gran # (Auto) 0.01 (0.00-0.02) K/uL Neut # (Auto) 7.28 H (1.4-6.5) K/uL Lymph # (Auto) 1.17 L (1.2-3.4) K/uL [place] # (Auto) 0.96 H (0.11-0.59) K/uL Eos # (Auto) 0.13 (0-0.5) K/uL Baso # (Auto) 0.02 (0-0.2) K/uL PT 10.8 (9.0-12.0) Seconds INR 1.0 (0.9-1.1) APTT 22.6 (21.0-31.0) Seconds PTT Ratio 0.8 Sodium 135 L (136-145) mmol/L Potassium 4.4 (3.5-5.1) mmol/L Chloride 103 (98-107) mmol/L Carbon Dioxide 27 (21-32) mmol/L Anion Gap 5.0 (3-11) BUN 16 (7-18) mg/dl Creatinine 1.33 (0.6-1.4) mg/dl Est Cr Clr Drug Dosing 67.7 ml/min Est GFR ( Amer) 65.5 Est GFR (Non-Af Amer) 56.5 BUN/Creatinine Ratio 12.2 (10-20) Glucose 152 H (70-99) mg/dl Calcium 9.4 (8.5-10.1) mg/dl Total Bilirubin 0.6 (0.2-1) mg/dl Direct Bilirubin 0.2 (0-0.2) mg/dl AST 34 (15-37) U/L ALT 58 (12-78) U/L Alkaline Phosphatase 75 (45-117) U/L Troponin I < 0.015 (0-0.045) ng/ml Total Protein 8.5 H (6.4-8.2) gm/dl Albumin 4.3 (3.4-5.0) gm/dl Lipase 63 L (73-393) U/L Urine Color Urine Appearance (Clear) Urine pH (4.5-7.5) Ur Specific [place] (1.000-1.030) Urine Protein (Negative) Urine Glucose (UA) (Negative) Urine Ketones (Negative) Urine Blood (Negative) Urine Nitrite (Negative) Urine Bilirubin (Negative) Urine Urobilinogen (Negative) Ur Leukocyte Esterase (Negative) 07/24/19 Range/Units 20:33 WBC (4.8-10.8) K/uL RBC (4.7-6.1) M/uL Hgb (14.0-18.0) g/dL Hct (42-52) % MCV (80-100) fL MCH (25-34) pg MCHC (32-36) g/dL RDW Std Deviation (36.4-46.3) fL RDW Coeff of Roxy (11.5-14.5) % Plt Count (130-400) K/uL MPV (7.4-10.4) fL Immature Gran % (Auto) % Neut % (Auto) % Lymph % (Auto) % [place] % (Auto) % Eos % (Auto) % Baso % (Auto) % Immature Gran # (Auto) (0.00-0.02) K/uL Neut # (Auto) (1.4-6.5) K/uL Lymph # (Auto) (1.2-3.4) K/uL [place] # (Auto) (0.11-0.59) K/uL Eos # (Auto) (0-0.5) K/uL Baso # (Auto) (0-0.2) K/uL PT (9.0-12.0) Seconds INR (0.9-1.1) APTT (21.0-31.0) Seconds PTT Ratio Sodium (136-145) mmol/L Potassium (3.5-5.1) mmol/L Chloride (98-107) mmol/L Carbon Dioxide (21-32) mmol/L Anion Gap (3-11) BUN (7-18) mg/dl Creatinine (0.6-1.4) mg/dl Est Cr Clr Drug Dosing ml/min Est GFR ( Amer) Est GFR (Non-Af Amer) BUN/Creatinine Ratio (10-20) Glucose (70-99) mg/dl Calcium (8.5-10.1) mg/dl Total Bilirubin (0.2-1) mg/dl Direct Bilirubin (0-0.2) mg/dl AST (15-37) U/L ALT (12-78) U/L Alkaline Phosphatase (45-117) U/L Troponin I (0-0.045) ng/ml Total Protein (6.4-8.2) gm/dl Albumin (3.4-5.0) gm/dl Lipase (73-393) U/L Urine Color Yellow Urine Appearance Clear (Clear) Urine pH 7.0 (4.5-7.5) Ur Specific [place] 1.016 (1.000-1.030) Urine Protein Negative (Negative) Urine Glucose (UA) Negative (Negative) Urine Ketones Trace H (Negative) Urine Blood Negative (Negative) Urine Nitrite Negative (Negative) Urine Bilirubin Negative (Negative) Urine Urobilinogen Negative (Negative) Ur Leukocyte Esterase Negative (Negative) Imaging Data Radiologist's Impression: CT head/brain wo con CLINICAL HISTORY: 64 years-old Male with fall yest. Acute head injury status post fall TECHNIQUE: Multiple axial CT images of the head were obtained without contrast. A dose lowering technique was utilized adhering to the principles of ALARA. CT DOSE: 638.56 mGycm COMPARISON: Head CT 04/11/2011. FINDINGS: No acute intracranial hemorrhage, midline shift, intracranial mass, hydrocephalus, territorial ischemia or abnormal extra-axial collection. The calvarium is intact. The paranasal sinuses, mastoid air cells, and middle ear cavities are clear. IMPRESSION: No acute intracranial abnormality or calvarial fracture. ACT 112: Negative or not required by law. The above report was generated using voice recognition software. It may contain grammatical, syntax or spelling errors. Electronically signed by: Augustine Lin M.D. 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 No acute fracture, dislocation or avascular necrosis. Surgical clips project over the right lower quadrant abdomen. Calcifications of the pelvis suggest phleboliths. IMPRESSION: No acute fracture or dislocation. ACT 112: Negative or not required by law. The above report was generated using voice recognition software. It may contain grammatical, syntax or spelling errors. Electronically signed by: Augustine Lin M.D. 07/24/2019 9:17 PM Dictated: 07/24/192115 Transcribed: 07/24/192115 XR chest 1V portable HISTORY: 64 years-old Male fall yest acute chest trauma status post fall COMPARISON: Chest radiograph 11/11/2018 TECHNIQUE: Portable AP view of the chest FINDINGS: Cardiac silhouette is upper limits of normal in size. Linear left lung base opacities suggest atelectasis/scarring. No pneumothorax, pleural effusion, overt pulmonary edema or airspace consolidation typical for pneumonia. Degenerative changes of the shoulders and spine. IMPRESSION: No acute process. ACT 112: Negative or not required by law. The above report was generated using voice recognition software. It may contain grammatical, syntax or spelling errors. Electronically signed by: Augustine Lin M.D. 07/24/2019 9:19 PM Dictated: 07/24/192116 Transcribed: 07/24/192116 ABDOMEN AND PELVIS CT WITH IV CONTRAST CT DOSE: 1329.24 mGycm HISTORY: Acute generalized abdominal pain status post fall abdominal pain TECHNIQUE: Multiaxial CT images of the abdomen and pelvis were performed following the IV administration of 90 cc of Optiray 320, A dose lowering technique was utilized adhering to the principles of ALARA. COMPARISON STUDY: CT abdomen and pelvis 11/11/2018 FINDINGS: Clear lung bases. Limited exam secondary to upper extremity positioning. No pneumatosis or pneumoperitoneum. The imaged inferior cardiac chambers appear unremarkable. Unremarkable spleen, pancreas, and adrenal glands. Contracted gallbladder. Hepatic steatosis without evidence of cirrhosis or hepatic mass lesion. Patency of the hepatic and portal veins. Mild cortical thinning of the bilateral kidneys. There are a few renal sinus cysts present bilaterally. No obstructive uropathy. Symmetric enhancement of the kidneys. Ureters, urinary bladder and prostate appear unremarkable. Mild to moderate mixed plaque of the abdominal aorta without aneurysm. Unremarkable IVC. No adenopathy. Distended fluid-filled distal esophagus and stomach. Dilated stool-filled, air and fluid-filled loops of small bowel within the left midabdomen measuring up to 3.7 cm transversely. There is an apparent transition point noted within the anterior central abdomen on image 244 series 3 with gradually decompressed small bowel seen distally to this area. Colonic diverticulosis. Unremarkable terminal ileum. Appendectomy. Multilevel degenerative changes are of the lumbar spine resulting in varying degrees of central canal and foraminal narrowing. Mild remote appearing compression deformity of the T12 vertebral body. No acute fracture. IMPRESSION: 1. No acute posttraumatic abnormality identified within the abdomen or pelvis. No evidence of acute solid organ injury or acute fracture. 2. Dilated air and fluid-filled as well as stool-filled loops of jejunum within the abdominal left upper quadrant and left midabdomen are noted with apparent transition point within the anterior lower abdomen as above. Although this is not congruent with the reported history of posttraumatic abdominal pain, these findings are suggestive of at least a partial small bowel obstruction. Follow-up recommended. 3. Hepatic steatosis. 4. Additional findings as above. ACT 112: Negative or not required by law. The above report was generated using voice recognition software. It may contain grammatical, syntax or spelling errors. Electronically signed by: Augustine Lin M.D. 07/24/2019 9:59 PM Dictated: 07/24/192146 Transcribed: 07/24/192146 ECG Data Rate (beats per minute): 126 Rhythm: + sinus tachycardia ECG Intervals/blocks: + Normal QRS, + Normal VA and + Normal QT-c ECG ST segments: + Normal ST segments MDM Narrative Vital signs stable. CT shows small bowel obstruction otherwise imaging within normal limits. Labs within normal limits. Patient will be admitted to [facility] team Dr. Anderson will accept the patient. Impression & Plan SBO (small bowel obstruction) Discharge Plan Visit Data Chief Complaint: Abdominal Pain Stated Complaint: BLOATING, VOMITING, ABD PAIN ED Provider: Flo Bass Discharge Problem: SBO (small bowel obstruction) Patient Disposition: Admitted As Inpatient Forms Stand Alone Forms: [facility] Prescriptions Prescriptions: No Action aspirin [Aspir-81] 81 mg Tablet,Delayed Release (Dr/Ec) 81 mg PO BID RF: 0 acetaminophen-codeine [Tylenol-Codeine #3] 300-30 mg Tablet 1 tab PO TID RF: 0 cyclobenzaprine 10 mg Tablet 10 mg PO TID RF: 0 pantoprazole 40 mg Tablet,Delayed Release (Dr/Ec) 40 mg PO BID RF: 0 ibuprofen [Advil Liqui-Gel] 200 mg Capsule 200 mg PO QID PRN (Reason: Pain) RF: 0 ezetimibe [Zetia] 10 mg Tablet 10 mg PO DAILY RF: 0 diclofenac sodium [Voltaren] 1 % gel 1 applic EXT QID PRN (Reason: RIGHT SHOULDER PAIN) RF: 0 amlodipine 2.5 mg tablet 2.5 mg PO DAILY RF: 0 Referrals Referrals: Akiko Decker PA-C [Primary Care Provider] -
[2019-07-24 20:43] LABS: Basophils # (auto) 0.02 K/uL (0-0.2); Basophils % (auto) 0.2 %; Eosinophils # (auto) 0.13 K/uL (0-0.5); Eosinophils % (auto) 1.4 %; Hemoglobin 15.7 g/dL (14.0-18.0); Immature Granulocytes # (auto) 0.01 K/uL (0.00-0.02); Immature Granulocytes % (auto) 0.1 %; Lymphocytes # (auto) 1.17 K/uL (1.2-3.4); Lymphocytes % (auto) 12.2 %; Mean Corpuscular Hemoglobin 32.7 pg (25-34); Mean Corpuscular Hgb Conc 33.4 g/dL (32-36); Mean Corpuscular Volume 97.9 fL (80-100); Monocytes # (auto) 0.96 K/uL (0.11-0.59); Neutrophils # (auto) 7.28 K/uL (1.4-6.5); Neutrophils % (auto) 76.1 %; Platelet Count 246 K/uL (130-400); RDW Coefficient of Variation 13.8 % (11.5-14.5); RDW Standard Deviation 49.4 fL (36.4-46.3); White Blood Count 9.57 K/uL (4.8-10.8)
[2019-07-24 20:45] LABS: Appearance Urine Clear (Clear); Bilirubin Urine Negative (Negative); Blood Urine Negative (Negative); Color Urine Yellow; Glucose Urine UA Negative (Negative); Ketones Urine Trace (Negative); Leukocyte Esterase Urine Negative (Negative); Nitrite Urine Negative (Negative); Protein Urine Negative (Negative); Specific Gravity Urine 1.016 (1.000-1.030); Urobilinogen Urine Negative (Negative)
[2019-07-24 20:55] LABS: Partial Thromboplastin Ratio 0.8; Partial Thromboplastin Time 22.6 Seconds (21.0-31.0); Prothrombin Time 10.8 Seconds (9.0-12.0)
[2019-07-24 21:00] LABS: Alanine Aminotransferase 58 U/L (12-78); Albumin Level 4.3 gm/dl (3.4-5.0); Aspartate Aminotransferase 34 U/L (15-37); BUN Creatinine Ratio 12.2 (10-20); Bilirubin Direct 0.2 mg/dl (0-0.2); Blood Urea Nitrogen 16 mg/dl (7-18); Calcium 9.4 mg/dl (8.5-10.1); Carbon Dioxide 27 mmol/L (21-32); Chloride 103 mmol/L (98-107); Creatinine Clr Calc Pharmacy 67.7 ml/min; Est GFR (African American) 65.5; Est GFR (Non-African American) 56.5; Glucose 152 mg/dl (70-99); Lipase 63 U/L (73-393); Potassium 4.4 mmol/L (3.5-5.1); Sodium 135 mmol/L (136-145)
[2019-07-24 21:05] LABS: Alkaline Phosphatase 75 U/L (45-117); Bilirubin,Total 0.6 mg/dl (0.2-1); Total Protein 8.5 gm/dl (6.4-8.2); Troponin I < 0.015 ng/ml (0-0.045)
--- NOTE | 2019-07-24 21:18 | XRay Report ---
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 No acute fracture, dislocation or gabriele scular necrosis. Surgical clips project over the right lower quadrant abdomen. Calcifications of the pelvis suggest phleboliths. IMPRESSION: No acute fracture or dislocation. ACT 112: Negative or not required by law. The above report was generated using voice recognition software. It may contain grammatical, syntax o r spelling errors. Electronically signed by: Augustine Lin M.D. 07/24/2019 9:17 PM
--- NOTE | 2019-07-24 21:20 | XRay Report ---
XR chest 1V portable HISTORY: 64 years-old Male fall yest acute chest trauma status post fall COMPARISON: Chest radiograph 11/11/2018 TECHNIQUE: Portable AP view of the chest FINDINGS: Cardiac silhouette is upper limits of normal in size. Linear left lung base opacities suggest atelect asis/scarring. No pneumothorax, pleural effusion, overt pulmonary edema or airspace consolidation typ ical for pneumonia. Degenerative changes of the shoulders and spine. IMPRESSION: No acute process. ACT 112: Negative or not required by law. The above report was generated using voice recognition software. It may contain grammatical, syntax o r spelling errors. Electronically signed by: Augustine Lin M.D. 07/24/2019 9:19 PM
[2019-07-24] MEDS ORDERED: IOVERSOL 100ml IV PRN (21:40)
--- NOTE | 2019-07-24 21:48 | CT Scan Report ---
CT head/brain wo con CLINICAL HISTORY: 64 years-old Male with fall yest. Acute head injury status post fall TECHNIQUE: Multiple axial CT images of the head were obtained without contrast. A dose lowering tech nique was utilized adhering to the principles of ALARA. CT DOSE: 638.56 mGycm COMPARISON: Head CT 04/11/2011. FINDINGS: No acute intracranial hemorrhage, midline shift, intracranial mass, hydrocephalus, territorial ischem ia or abnormal extra-axial collection. The calvarium is intact. The paranasal sinuses, mastoid air cells, and middle ear cavities are clear . IMPRESSION: No acute intracranial abnormality or calvarial fracture. ACT 112: Negative or not required by law. The above report was generated using voice recognition software. It may contain grammatical, syntax o r spelling errors. Electronically signed by: Augustine Lin M.D. 07/24/2019 9:47 PM
--- NOTE | 2019-07-24 22:01 | CT Scan Report ---
ABDOMEN AND PELVIS CT WITH IV CONTRAST CT DOSE: 1329.24 mGycm HISTORY: Acute generalized abdominal pain status post fall abdominal pain TECHNIQUE: Multiaxial CT images of the abdomen and pelvis were performed following the IV administrat ion of 90 cc of Optiray 320, A dose lowering technique was utilized adhering to the principles of AL SILVIA. COMPARISON STUDY: CT abdomen and pelvis 11/11/2018 FINDINGS: Clear lung bases. Limited exam secondary to upper extremity positioning. No pneumatosis or pneumoperi toneum. The imaged inferior cardiac chambers appear unremarkable. Unremarkable spleen, pancreas, and adrenal glands. Contracted gallbladder. Hepatic steatosis without evidence of cirrhosis or hepatic ma ss lesion. Patency of the hepatic and portal veins. Mild cortical thinning of the bilateral kidneys. There are a few renal sinus cysts present bilaterally. No obstructive uropathy. Symmetric enhancement of the kidneys. Ureters, urinary bladder and prostate appear unremarkable. Mild to moderate mixed pl aque of the abdominal aorta without aneurysm. Unremarkable IVC. No adenopathy. Distended fluid-filled distal esophagus and stomach. Dilated stool-filled, air and fluid-filled loops of small bowel within the left midabdomen measuring up to 3.7 cm transversely. There is an apparent transition point noted within the anterior central abdomen on image 244 series 3 with gradually decom pressed small bowel seen distally to this area. Colonic diverticulosis. Unremarkable terminal ileum. Appendectomy. Multilevel degenerative changes are of the lumbar spine resulting in varying degrees of central canal and foraminal narrowing. Mild remote appearing compression deformity of the T12 verteb ral body. No acute fracture. IMPRESSION: 1. No acute posttraumatic abnormality identified within the abdomen or pelvis. No evidence of acute s olid organ injury or acute fracture. 2. Dilated air and fluid-filled as well as stool-filled loops of jejunum within the abdominal left up per quadrant and left midabdomen are noted with apparent transition point within the anterior lower a bdomen as above. Although this is not congruent with the reported history of posttraumatic abdominal pain, these findings are suggestive of at least a partial small bowel obstruction. Follow-up recommen ded. 3. Hepatic steatosis. 4. Additional findings as above. ACT 112: Negative or not required by law. The above report was generated using voice recognition software. It may contain grammatical, syntax o r spelling errors. Electronically signed by: Augustine Lin M.D. 07/24/2019 9:59 PM
--- NOTE | 2019-07-24 23:33 | History & Physical Report ---
Date of Service July 24, 2019 Assessment & Plan (1) SBO (small bowel obstruction): Patient developed acute onset of abdominal pain at 3:00 this afternoon, which ultimately led to nausea and vomiting beginning about [address] suggestive of at least partial small bowel obstruction. Admit to medical surgical floor. N.p.o. Patient prefers no NG tube at this time. famotidine 20 mg IV every 12 hours. NSS + KCl 20 mEq at 100 mils per hour. Zofran 4 mg IV every 6 hours as needed. Zosyn 3.375 mg IV every 8 hours. Toradol 30 mg IV every 6 hours PRN moderate pain He did receive Dilaudid 1 mg IV from the ED staff. Would avoid further narcotics for fear of worsening his present PSBO Present on Admission?: Yes (2) Acute exacerbation of chronic low back pain: Patient reports he fell off of a ladder from about 2.5 feet yesterday. X-rays in the ED revealed no acute findings. Present on Admission?: Yes (3) Esophagitis: Distal esophagus with fluid-filled. Placed on famotidine 4 mg IV every 12 hours. Discussed with patient the option of NG tube to low intermittent suction, but he declined at this time. Present on Admission?: Yes (4) CAD (coronary artery disease): CAD/hypertension/history of MO- Hold amlodipine and aspirin and Zetia until patient is able to take p.o. Present on Admission?: Yes (5) Essential hypertension: See above Present on Admission?: Yes (6) Hyperlipidemia: See above. Present on Admission?: Yes Admission and Anticipated Discharge Date Admission Date: 07/25/2019 Anticipated date of discharge: 07/27/19 History of Present Illness Chief Complaint: The patient presents to the emergency department with generalized abdominal pain that began around 3 PM today, and then began to have nausea and vomiting at 6 PM this evening. Primary Care Provider: Akiko Decker PA-C The patient is a 64-year-old male with a past medical history including chronic pain syndrome, chronic back pain, hyperlipidemia, essential hypertension, CAD, esophagitis, small bowel obstruction x3, and history of MO. He denies any recent change in oral intake for both liquids or solids. He has not had any fevers or chills. He has not any recent travels or sick exposures. He reports that the same symptoms are similar to his previous bowel obstruction symptoms. Work-up in the emergency department included CT scan of abdomen pelvis which showed distended fluid-filled distal esophagus and stomach. Dilated stool filled air and fluid-filled loops of small bowel within the left mid abdomen, with an apparent transition point noted within the anterior central abdomen. These findings are suggestive of at least a partial small bowel obstruction. Patient reports following off of a ladder from a height of 2.5 feet yesterday, with some aggravation of chronic back pain and hip pain, but had negative x-rays in the ED. Allergies Allergy/AdvReac Type Severity Reaction Status Date / Time bee venom protein (honey bee) Allergy Severe Anaphylaxis Verified 07/24/19 21:08 adhesive Allergy Intermediate REDDENED, Verified 07/24/19 21:08 ITCHY, IRRITATED SKIN strawberry Allergy Mild Rash Verified 07/24/19 21:08 celecoxib [From Celebrex] AdvReac Intermediate NAUSEA, Verified 07/24/19 21:08 RAMIREZ, CHEST FELT TIGHT onion AdvReac Mild Nausea Verified 07/24/19 21:08 Home Medications Home Medications Medication Instructions Recorded Confirmed Type acetaminophen-codeine 1 tab PO TID 02/09/18 07/24/19 History [Tylenol-Codeine #3] aspirin [Aspir-81] 81 mg PO BID 02/09/18 07/24/19 History cyclobenzaprine 10 mg PO TID 02/09/18 07/24/19 History ibuprofen [Advil Liqui-Gel] 200 mg PO QID PRN 02/09/18 07/24/19 History pantoprazole 40 mg PO BID 02/09/18 07/24/19 History amlodipine 2.5 mg PO DAILY 05/12/18 07/24/19 History ezetimibe [Zetia] 10 mg PO DAILY 11/11/18 07/24/19 History diclofenac sodium [Voltaren] 1 applic EXT QID PRN 07/24/19 07/24/19 History Past Med/Surg History Medical History (Updated 07/25/19 @ 03:33 by Gavino Thomas MD) Chronic back pain Myocardial infarction Numbness and tingling of both feet Ruptured disc, thoracic Ruptured lumbar disc SBO (small bowel obstruction) Small bowel obstruction (Acute) Vertigo Surgical History (Updated 07/25/19 @ 01:02 by Adina Garcia RN) History of appendectomy History of cardiac cath History of colonoscopy History of heart artery stent Family History (Updated 07/25/19 @ 01:05 by Adina Garcia RN) Father No significant family history Myocardial infarction Social History Preferred Language: Lithuanian Communication Ability: Effective Steam Gigger Required: No Beliefs That Will Affect Care: None Current Living Situation: Family Other Information That Helps Us Care for You: No Feels Safe at Home: Yes Smoking Status: Never smoker Do You Dip or Chew Tobacco: No ; Second Hand Exposure: No ; Tobacco Cessation Education Requested by Patient: No Hx Alcohol Use: No Hx Substance Use: No Review of Systems Review of Systems: The patient denies chest pain, palpitations, shortness of breath, dyspnea on exertion, cough, lower extremity swelling, sore throat, fevers, chills, sweats, blood in urine or stool, dysuria, urinary frequency or urgency, lightheadedness, dizziness, headache, memory loss, loss of consciousness, rash, abnormal bruising or bleeding, imbalance, focal or generalized weakness, or night sweats. The review of systems is otherwise negative other than for that already noted above, and at least 10 systems have been reviewed. Physical Exam Physical Exam: The patient is awake, alert and oriented 3, well developed and well nourished, normocephalic and atraumatic, lying in bed and in no acute distress. HEENT--PERRL, EOMI, mucous membranes and oropharynx dry. Neck--supple. No JVD. No bruits. Thyroid normal, trachea midline, no adenopathy. Heart--normal S1 and S2. No murmurs, rubs or gallops. Lungs--clear bilaterally, no respiratory distress, no accessory muscle use. Abdomen--normal bowel sounds and soft. Nontender. Mildly tympanitic and distended. Overall decreased bowel sounds. Extremities--no cyanosis or clubbing. No edema. Dermatologic--normal skin turgor, normal color, no abnormal lymph nodes, no rash. Neurologic--cranial nerves II through XII grossly intact. Rheumatologic--normal range of motion. Psychiatric--normal affect. Results & Data Results & Data ([facility]) Vital Signs (Past 12 Hours) Vital Signs Temp Pulse Resp BP Pulse Ox 07/24/19 22:45 99 H 16 172/100 H 95 07/24/19 22:00 98 H 18 164/97 H 95 07/24/19 21:20 101 H 22 94 07/24/19 21:10 105 H 27 H 94 07/24/19 20:39 111 H 16 157/84 H 96 07/24/19 20:12 98.1 F 143 H 22 170/97 H 96 Laboratory Results Laboratory Results WBC 9.57 K/uL (4.8-10.8) 07/24/19 20:33 RBC 4.80 M/uL (4.7-6.1) 07/24/19 20:33 Hgb 15.7 g/dL (14.0-18.0) 07/24/19 20: Hct 47.0 % (42-52) 07/24/19 20:33 MCV 97.9 fL (80-100) 07/24/19 20: MCH 32.7 pg (25-34) 07/24/19 20: MCHC 33.4 g/dL (32-36) 07/24/19 20:33 RDW Std Deviation 49.4 fL (36.4-46.3) H 07/24/19 20:33 RDW Coeff of Roxy 13.8 % (11.5-14.5) 07/24/19 20: Plt Count 246 K/uL (130-400) 07/24/19 20:33 MPV 10.0 fL (7.4-10.4) 07/24/19 20:33 Immature Gran % (Auto) 0.1 % 07/24/19 20:33 Neut % (Auto) 76.1 % 07/24/19 20:33 Lymph % (Auto) 12.2 % 07/24/19 20:33 Warren % (Auto) 10.0 % 07/24/19 20:33 Eos % (Auto) 1.4 % 07/24/19 20:33 Baso % (Auto) 0.2 % 07/24/19 20:33 Immature Gran # (Auto) 0.01 K/uL (0.00-0.02) 07/24/19 20: Neut # (Auto) 7.28 K/uL (1.4-6.5) H 07/24/19 20:33 Lymph # (Auto) 1.17 K/uL (1.2-3.4) L 07/24/19 20:33 Warren # (Auto) 0.96 K/uL (0.11-0.59) H 07/24/19 20:33 Eos # (Auto) 0.13 K/uL (0-0.5) 07/24/19 20:33 Baso # (Auto) 0.02 K/uL (0-0.2) 07/24/19 20:33 PT 10.8 Seconds (9.0-12.0) 07/24/19 20: INR 1.0 (0.9-1.1) 07/24/19 20:33 APTT 22.6 Seconds (21.0-31.0) 07/24/19 20: PTT Ratio 0.8 07/24/19 20:33 Sodium 135 mmol/L (136-145) L 07/24/19 20:33 Potassium 4.4 mmol/L (3.5-5.1) 07/24/19 20:33 Chloride 103 mmol/L (98-107) 07/24/19 20:33 Carbon Dioxide 27 mmol/L (21-32) 07/24/19 20:33 Anion Gap 5.0 (3-11) 07/24/19 20:33 BUN 16 mg/dl (7-18) 07/24/19 20:33 Creatinine 1.33 mg/dl (0.6-1.4) 07/24/19 20:33 Est Cr Clr Drug Dosing 67.7 ml/min 07/24/19 20:33 Est GFR ( Amer) 65.5 07/24/19 20:33 Est GFR (Non-Af Amer) 56.5 07/24/19 20:33 BUN/Creatinine Ratio 12.2 (10-20) 07/24/19 20: Glucose 152 mg/dl (70-99) H 07/24/19 20:33 Calcium 9.4 mg/dl (8.5-10.1) 07/24/19 20:33 Total Bilirubin 0.6 mg/dl (0.2-1) 07/24/19 20:33 Direct Bilirubin 0.2 mg/dl (0-0.2) 07/24/19 20:33 AST 34 U/L (15-37) 07/24/19 20:33 ALT 58 U/L (12-78) 07/24/19 20:33 Alkaline Phosphatase 75 U/L (45-117) 07/24/19 20:33 Troponin I < 0.015 ng/ml (0-0.045) 07/24/19 20:33 Total Protein 8.5 gm/dl (6.4-8.2) H 07/24/19 20:33 Albumin 4.3 gm/dl (3.4-5.0) 07/24/19 20: Lipase 63 U/L (73-393) L 07/24/19 20:33 Urine Color Yellow 07/24/19 20: Urine Appearance Clear (Clear) 07/24/19 20: Urine pH 7.0 (4.5-7.5) 07/24/19 20:33 Ur Specific Pennock 1.016 (1.000-1.030) 07/24/19 20:33 Urine Protein Negative (Negative) 07/24/19 20: Urine Glucose (UA) Negative (Negative) 07/24/19 20:33 Urine Ketones Trace (Negative) H 07/24/19 20:33 Urine Blood Negative (Negative) 07/24/19 20: Urine Nitrite Negative (Negative) 07/24/19 20: Urine Bilirubin Negative (Negative) 07/24/19 20:33 Urine Urobilinogen Negative (Negative) 07/24/19 20:33 Ur Leukocyte Esterase Negative (Negative) 07/24/19 20:33 Diagnostic Findings [place], [place] [phone] CT Scan Report Patient: CHRISTINE ENRIQUEZ DAdjane Date: 07/24/19 MR#: [id number]: 113 [facility] Acct ID:[id number]: Date: [address] [place] [address] [facility] [address] Age: 64Location: ED Sex: M Room/Bed: Att Phy:Diagnosis: BLOATING, VOMITING, ABD PAIN Jyotsna Phy: Akiko Decker PA-CService Date: 07/24/19 Fam Phy:Interpreting Phy: Colton Lin Admit Phy: Ordering Phy: Flo Bass MD cc: ~ ABDOMEN AND PELVIS CT WITH IV CONTRAST CT DOSE: 1329.24 mGycm HISTORY: Acute generalized abdominal pain status post fall abdominal pain TECHNIQUE: Multiaxial CT images of the abdomen and pelvis were performed following the IV administration of 90 cc of Optiray 320, A dose lowering technique was utilized adhering to the principles of ALARA. COMPARISON STUDY: CT abdomen and pelvis 11/11/2018 FINDINGS: Clear lung bases. Limited exam secondary to upper extremity positioning. No pneumatosis or pneumoperitoneum. The imaged inferior cardiac chambers appear unremarkable. Unremarkable spleen, pancreas, and adrenal glands. Contracted gallbladder. Hepatic steatosis without evidence of cirrhosis or hepatic mass lesion. Patency of the hepatic and portal veins. Mild cortical thinning of the bilateral kidneys. There are a few renal sinus cysts present bilaterally. No obstructive uropathy. Symmetric enhancement of the kidneys. Ureters, urinary bladder and prostate appear unremarkable. Mild to moderate mixed plaque of the abdominal aorta without aneurysm. Unremarkable IVC. No adenopathy. Distended fluid-filled distal esophagus and stomach. Dilated stool-filled, air and fluid-filled loops of small bowel within the left midabdomen measuring up to 3.7 cm transversely. There is an apparent transition point noted within the anterior central abdomen on image 244 series 3 with gradually decompressed small bowel seen distally to this area. Colonic diverticulosis. Unremarkable terminal ileum. Appendectomy. Multilevel degenerative changes are of the lumbar spine resulting in varying degrees of central canal and foraminal narrowing. Mild remote appearing compression deformity of the T12 vertebral body. No acute fracture. IMPRESSION: 1. No acute posttraumatic abnormality identified within the abdomen or pelvis. No evidence of acute solid organ injury or acute fracture. 2. Dilated air and fluid-filled as well as stool-filled loops of jejunum within the abdominal left upper quadrant and left midabdomen are noted with apparent transition point within the anterior lower abdomen as above. Although this is not congruent with the reported history of posttraumatic abdominal pain, these findings are suggestive of at least a partial small bowel obstruction. Follow-up recommended. 3. Hepatic steatosis. 4. Additional findings as above. ACT 112: Negative or not required by law. The above report was generated using voice recognition software. It may contain grammatical, syntax or spelling errors. Electronically signed by: Augustine Lin M.D. 07/24/2019 9:59 PM Dictated: 07/24/192146 Transcribed: 07/24/192146 [facility], [place] [phone] XRay Report Patient: CHRISTINE ENRIQUEZ Date: 07/24/19 MR#: [id number]: 113 [facility] Acct ID:[id number]: Date: [address] [place] [address] Zip: [place] [address] Age: 64Location: ED Sex: M Room/Bed: Att Phy:Diagnosis: BLOATING, VOMITING, ABD PAIN Jyotsna Phy: Akiko Decker PA-CService Date: 07/24/19 Fam Phy:Interpreting Phy: Colton Lin Admit Phy: Ordering Phy: Flo Bass MD cc: ~ XR chest 1V portable HISTORY: 64 years-old Male fall yest acute chest trauma status post fall COMPARISON: Chest radiograph 11/11/2018 TECHNIQUE: Portable AP view of the chest FINDINGS: Cardiac silhouette is upper limits of normal in size. Linear left lung base opacities suggest atelectasis/scarring. No pneumothorax, pleural effusion, overt pulmonary edema or airspace consolidation typical for pneumonia. Degenerative changes of the shoulders and spine. IMPRESSION: No acute process. ACT 112: Negative or not required by law. The above report was generated using voice recognition software. It may contain grammatical, syntax or spelling errors. Electronically signed by: Augustine Lin M.D. 07/24/2019 9:19 PM Dictated: 07/24/192116 Transcribed: 07/24/192116 [facility], [place] [phone] XRay Report Patient: CHRISTINE ENRIQUEZ Date: 07/24/19 MR#: [id number]: 113 [facility] Acct ID:[id number]: Date: [address] [place] [address] [facility] [place] [address] Age: 64Location: ED Sex: M Room/Bed: Att Phy:Diagnosis: BLOATING, VOMITING, ABD PAIN Jyotsna Phy: Akiko Decker PA-CService Date: 07/24/19 [facility] Phy:Interpreting Phy: Colton Lin Admit Phy: Ordering Phy: Flo Bass MD cc: ~ XR pelvis 1-2V routine HISTORY: 64 years-old Male fall yesterday acute pelvic pain status post fall COMPARISON: CT abdomen and pelvis 11/11/2018 TECHNIQUE: AP view of the pelvis FINDINGS: Mild osteoarthritis of the bilateral femoral acetabular joints. No acute fracture, dislocation or avascular necrosis. Surgical clips project over the right lower quadrant abdomen. Calcifications of the pelvis suggest phleboliths. IMPRESSION: No acute fracture or dislocation. ACT 112: Negative or not required by law. The above report was generated using voice recognition software. It may contain grammatical, syntax or spelling errors. Electronically signed by: Augustine Lin M.D. 07/24/2019 9:17 PM Dictated: 07/24/192115 Transcribed: 07/24/192115 [place], [place] [phone] CT Scan Report Patient: CHRISTINE ENRIQUEZ DAdmit Date: 07/24/19 MR#: [id number]: 113 [facility] Acct ID:[id number]: Date: [address] [place] [address] [facility]: [facility] [address] Age: 64Location: ED Sex: M Room/Bed: Att Phy:Diagnosis: BLOATING, VOMITING, ABD PAIN Jyotsna Phy: Akiko Decker PA-CService Date: 07/24/19 [facility] Phy:Interpreting Phy: Colton Lin Admit Phy: Ordering Phy: Flo Bass MD cc: ~ CT head/brain wo con CLINICAL HISTORY: 64 years-old Male with fall yest. Acute head injury status post fall TECHNIQUE: Multiple axial CT images of the head were obtained without contrast. A dose lowering technique was utilized adhering to the principles of ALARA. CT DOSE: 638.56 mGycm COMPARISON: Head CT 04/11/2011. FINDINGS: No acute intracranial hemorrhage, midline shift, intracranial mass, hydrocephalus, territorial ischemia or abnormal extra-axial collection. The calvarium is intact. The paranasal sinuses, mastoid air cells, and middle ear cavities are clear. IMPRESSION: No acute intracranial abnormality or calvarial fracture. ACT 112: Negative or not required by law. The above report was generated using voice recognition software. It may contain grammatical, syntax or spelling errors. Electronically signed by: Augustine Lin M.D. 07/24/2019 9:47 PM Dictated: 07/24/192143 Transcribed: 07/24/192145 Code Status & VTE Plan Code Status Full code VTE Prophylaxis Plan VTE Prophylaxis will be ordered: Yes PG Care Time/CCT Total # of Minutes Spent Total Time Spent with Patient: Total time spent is greater than 50% in coordination of care (as documented) at patient's floor/unit and/or counseling patient: Coding Level of Care Code 69285 Initial Inpt Care Lvl 2 Diagnoses SBO (small bowel obstruction) K56.609 Acute exacerbation of chronic low back pain M54.5; G89.29 Esophagitis K20.9 CAD (coronary artery disease) I25.10 Essential hypertension I10 Hyperlipidemia E78.5
[2019-07-25] MEDS ORDERED: DICLOFENAC SOD 1% GEL 100 GM TUBE EXT PRN (00:36)
[2019-07-25] MEDS ORDERED: ACETAMINOPHEN 325 MG TAB PO PRN (00:36)
[2019-07-25] MEDS ORDERED: PIPERACILL/TAZOBAC CONSULT ACTIVE PRN (00:36)
[2019-07-25] MEDS ORDERED: PIPERACILLIN/TAZOBACTAM 4.5 GM in DEXTROSE 5% 100 ML IV ONE (00:45)
[2019-07-25] MEDS: NSS + 20MEQ KCL 20 MEQ/1,000 ML BAG IV SCH ×3 (01:08→19:30)
[2019-07-25] MEDS: ONDANSETRON INJ 2 MG/ML 2 ML VIAL IV PRN ×3 (03:08→15:26)
[2019-07-25 05:55] LABS: Basophils # (auto) 0.01 K/uL (0-0.2); Basophils % (auto) 0.1 %; Eosinophils # (auto) 0.17 K/uL (0-0.5); Hematocrit (blood only) 43.3 % (42-52); Hemoglobin 14.2 g/dL (14.0-18.0); Immature Granulocytes # (auto) 0.03 K/uL (0.00-0.02); Immature Granulocytes % (auto) 0.4 %; Lymphocytes # (auto) 1.26 K/uL (1.2-3.4); Lymphocytes % (auto) 15.1 %; Mean Corpuscular Hemoglobin 32.9 pg (25-34); Mean Corpuscular Hgb Conc 32.8 g/dL (32-36); Mean Corpuscular Volume 100.2 fL (80-100); Mean Platelet Volume 10.1 fL (7.4-10.4); Monocytes # (auto) 1.12 K/uL (0.11-0.59); Monocytes % (auto) 13.4 %; Neutrophils # (auto) 5.78 K/uL (1.4-6.5); Platelet Count 213 K/uL (130-400); RDW Coefficient of Variation 14.2 % (11.5-14.5); RDW Standard Deviation 52.1 fL (36.4-46.3); Red Blood Count 4.32 M/uL (4.7-6.1); White Blood Count 8.37 K/uL (4.8-10.8)
[2019-07-25] MEDS ORDERED: PIPERACILLIN/TAZOBACTAM 4.5 GM in DEXTROSE 5% 100 ML IV SCH (06:00)
[2019-07-25] MEDS: KETOROLAC 30 MG/ML VIAL IV PRN ×3 (06:11→23:40)
[2019-07-25 06:14] LABS: Albumin Level 3.4 gm/dl (3.4-5.0); BUN Creatinine Ratio 13.6 (10-20); Calcium 8.8 mg/dl (8.5-10.1); Creatinine Clr Calc Pharmacy 72.7 ml/min; Est GFR (African American) 73.4; Est GFR (Non-African American) 63.3; Magnesium 2.4 mg/dl (1.8-2.4); Potassium 4.3 mmol/L (3.5-5.1)
[2019-07-25 06:17] LABS: Albumin Globulin Ratio 0.9 (0.9-2); Bilirubin,Total 0.8 mg/dl (0.2-1); Globulin 3.7 gm/dl (2.5-4.0); Total Protein 7.1 gm/dl (6.4-8.2)
[2019-07-25] MEDS: FAMOTIDINE 20 MG in SYRINGE 3 ML IV SCH ×2 (08:03→20:21)
--- NOTE | 2019-07-25 10:06 | Electrocardiogram Report ---
Test Reason : Blood Pressure : / mmHG Vent. 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
--- NOTE | 2019-07-25 11:08 | Hospitalist Progress Note ---
Date of Service July 25, 2019 Assessment & Plan (1) SBO (small bowel obstruction): Patient with previous history of partial small bowel obstructions, the last being about a year ago. Likely secondary to adhesions from old documentation. I did discuss NG tube decompression with the patient, he is concerned as they have had difficulty placing the tube previously. For now will defer, will ask general surgery to evaluate as it is been present just the patient may require lysis of adhesions at some point near future electively. Will need to be strict n.p.o. which for now we will include medications. (2) Acute exacerbation of chronic low back pain: Patient reports he fell off of a ladder from about 2.5 feet yesterday. X-rays in the ED revealed no acute findings. He is complaining of low back pain. For now we will give Toradol 30 mg every 6 hours as needed for pain. Monitor renal function with this. I would like to hold off on narcotics secondary to small bowel obstruction. (3) Esophagitis: Distal esophagus with fluid-filled. Placed on famotidine 4 mg IV every 12 hours. (4) CAD (coronary artery disease): CAD/hypertension/history of AR- Hold amlodipine and aspirin and Zetia until patient is able to take p.o. (5) Essential hypertension: Patient is strict n.p.o. now, will hold off on medications. (6) Hyperlipidemia: See above. Admission and Anticipated Discharge Date Admission Date: July 24, 2019 Anticipated date of discharge: 07/27/19 Subjective Patient seen and examined. He continues to have lower abdominal pain. He has had minimal flatus but no bowel movements. He has been on ice chips. He is complaining of back pain. Patient typically takes Tylenol 3 for this but has not been able to take anything by mouth. Also, he is complaining of seasonal allergies and is usually on oral antihistamine is requesting for things as well. He is having no nausea or vomiting. Physical Exam Constitutional: cooperative; no acute distress Neck: trachea midline, no thyromegaly Respiratory: normal respiratory effort Auscultation: lungs clear to auscultation bilaterally; no crackles, no rales, no rhonchi and no wheezes Cardiovascular: Rate/Rhythm: regular rate and regular rhythm Heart Sounds: normal S1 and normal S2 Gastrointestinal (Abdomen): Inspection/Auscultation: abdomen normal to inspection Percussion/Palpation: + abdomen tender (Mild to moderate tenderness in the lower quadrant will umbilicus, mostly in the left lower quadrant) and abdomen soft; no guarding, abdomen not rigid and no hepatosplenomegaly Skin: no rashes, warm and dry Results & Data Results & Data ([facility]) Vital Signs (Past 12 Hours) Vital Signs Temp Pulse Resp BP Pulse Ox 07/25/19 07:40 36.6 C 94 H 18 150/84 H 94 07/25/19 00:35 36.4 C L 96 H 16 142/85 H 95 PG Care Time/CCT Total # of Minutes Spent Total Time Spent with Patient: Total time spent is greater than 50% in coordination of care (as documented) at patient's floor/unit and/or counseling patient: Coding Level of Care Code 34391 Subseq Hosp Care Lvl 2 Diagnoses SBO (small bowel obstruction) K56.609 Acute exacerbation of chronic low back pain M54.5; G89.29 Esophagitis K20.9 CAD (coronary artery disease) I25.10 Essential hypertension I10 Hyperlipidemia E78.5
[2019-07-25] MEDS: DiphenhydrAMINE HCL 50 MG/ML VIAL IV PRN ×2 (14:03→23:42)
--- NOTE | 2019-07-25 18:08 | Surgery Consultation ---
Date of Consultation July 25, 2019 Assessment & Plan (1) Abdominal pain: This patient has abdominal pain with nausea and vomiting a CT scan suggestive of partial small bowel obstruction. He is passing flatus now. His nausea has resolved and he has less distended abdomen. This may be already resolving. I agree with conservative measures. I would not recommend surgical intervention at this time. There is no evidence of peritonitis. History of Present Illness Reason for Consultation: I have been asked by Dr. Holliday to see this 64-year-old male who presented to the emergency room after having developed abdominal pain associated with nausea and vomiting. He developed the discomfort yesterday late morning to early afternoon. It was a dull ache and then increased in intensity to become more sharp. It was throughout his abdomen with no area predominating. He also became bloated. He did not pass gas after the morning and there was a normal bowel movement the morning but he had not had any since. He had no melena or hematochezia. He has no dysuria or hematuria. He has had similar symptoms to this in the past. The most recent was a year ago. He was told that he had a bowel obstruction but resolved with conservative measures. He has had no fever or chills. Since admission beginning this morning about 6 AM he has had flatus. He has not had a bowel movement. His abdominal distention has not resolved but it is markedly improved. He no longer has nausea. Requesting Physician: Fred Holliday DO Attending Physician: Fred Holliday DO Allergies Allergy/AdvReac Type Severity Reaction Status Date / Time bee venom protein (honey bee) Allergy Severe Anaphylaxis Verified 07/24/19 21:08 adhesive Allergy Intermediate REDDENED, Verified 07/24/19 21:08 ITCHY, IRRITATED SKIN strawberry Allergy Mild Rash Verified 07/24/19 21:08 celecoxib [From Celebrex] AdvReac Intermediate NAUSEA, Verified 07/24/19 21:08 RAMIREZ, CHEST FELT TIGHT onion AdvReac Mild Nausea Verified 07/24/19 21:08 Home Medications Home Medications Medication Instructions Recorded Confirmed Type acetaminophen-codeine 1 tab PO TID 02/09/18 07/24/19 History [Tylenol-Codeine #3] aspirin [Aspir-81] 81 mg PO BID 02/09/18 07/24/19 History cyclobenzaprine 10 mg PO TID 02/09/18 07/24/19 History ibuprofen [Advil Liqui-Gel] 200 mg PO QID PRN 02/09/18 07/24/19 History pantoprazole 40 mg PO BID 02/09/18 07/24/19 History amlodipine 2.5 mg PO DAILY 05/12/18 07/24/19 History ezetimibe [Zetia] 10 mg PO DAILY 11/11/18 07/24/19 History diclofenac sodium [Voltaren] 1 applic EXT QID PRN 07/24/19 07/24/19 History Patient History Medical History (Updated 07/25/19 @ 03:33 by Gavino Thomas MD) Chronic back pain Myocardial infarction Numbness and tingling of both feet Ruptured disc, thoracic Ruptured lumbar disc SBO (small bowel obstruction) Small bowel obstruction (Acute) Vertigo Surgical History (Updated 07/25/19 @ 01:02 by Adina Garcia RN) History of appendectomy History of cardiac cath History of colonoscopy History of heart artery stent Family History (Updated 07/25/19 @ 01:05 by Adina Garcia RN) Father No significant family history Myocardial infarction Social History Preferred Language: Romansh Communication Ability: Effective 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 Beliefs That Will Affect Care: None Current Living Situation: Family Other Information That Helps Us Care for You: No Feels Safe at Home: Yes Smoking Status: Never smoker Do You Dip or Chew Tobacco: No ; Second Hand Exposure: No ; Tobacco Cessation Education Requested by Patient: No Hx Alcohol Use: No Hx Substance Use: No Review of Systems Review of Systems: All systems reviewed & are unremarkable except as noted in HPI & below Physical Exam Constitutional: no acute distress Respiratory: normal respiratory effort, lungs clear to auscultation Cardiovascular: Rate/Rhythm: regular rate and regular rhythm Gastrointestinal (Abdomen): Inspection/Auscultation: normal bowel sounds; abdomen not distended (Mild) Percussion/Palpation: + abdomen tender (Moderate throughout) and abdomen soft; no abdominal mass Skin: no rashes, warm and dry Lymphatic: no cervical lymphadenopathy Results & Data Vital Signs (Past 12 Hours) Vital Signs Temp Pulse Resp BP Pulse Ox 07/25/19 15:00 36.8 C 102 H 18 130/76 95 07/25/19 07:40 36.6 C 94 H 18 150/84 H 94 Laboratory Results 07/25/19 07/25/19 07/25/19 Range/Units 05:27 05:27 05:27 WBC 8.37 (4.8-10.8) K/uL RBC 4.32 L (4.7-6.1) M/uL Hgb 14.2 (14.0-18.0) g/dL Hct 43.3 (42-52) % MCV 100.2 H (80-100) fL MCH 32.9 (25-34) pg MCHC 32.8 (32-36) g/dL RDW Std Deviation 52.1 H (36.4-46.3) fL RDW Coeff of Roxy 14.2 (11.5-14.5) % Plt Count 213 (130-400) K/uL MPV 10.1 (7.4-10.4) fL Immature Gran % (Auto) 0.4 % Neut % (Auto) 69.0 % Lymph % (Auto) 15.1 % [place] % (Auto) 13.4 % Eos % (Auto) 2.0 % Baso % (Auto) 0.1 % Immature Gran # (Auto) 0.03 H (0.00-0.02) K/uL Neut # (Auto) 5.78 (1.4-6.5) K/uL Lymph # (Auto) 1.26 (1.2-3.4) K/uL [place] # (Auto) 1.12 H (0.11-0.59) K/uL Eos # (Auto) 0.17 (0-0.5) K/uL Baso # (Auto) 0.01 (0-0.2) K/uL PT (9.0-12.0) Seconds INR (0.9-1.1) APTT (21.0-31.0) Seconds PTT Ratio Sodium 137 (136-145) mmol/L Potassium 4.3 (3.5-5.1) mmol/L Chloride 109 H (98-107) mmol/L Carbon Dioxide 26 (21-32) mmol/L Anion Gap 2.0 L (3-11) BUN 16 (7-18) mg/dl Creatinine 1.21 (0.6-1.4) mg/dl Est Cr Clr Drug Dosing 72.7 ml/min Est GFR ( Amer) 73.4 Est GFR (Non-Af Amer) 63.3 BUN/Creatinine Ratio 13.6 (10-20) Glucose 112 H (70-99) mg/dl Calcium 8.8 (8.5-10.1) mg/dl Magnesium 2.4 (1.8-2.4) mg/dl Total Bilirubin 0.8 (0.2-1) mg/dl Direct Bilirubin (0-0.2) mg/dl AST 25 (15-37) U/L ALT 47 (12-78) U/L Alkaline Phosphatase 62 (45-117) U/L Troponin I (0-0.045) ng/ml Total Protein 7.1 (6.4-8.2) gm/dl Albumin 3.4 (3.4-5.0) gm/dl Globulin 3.7 (2.5-4.0) gm/dl Albumin/Globulin Ratio 0.9 (0.9-2) Lipase (73-393) U/L Urine Color Urine Appearance (Clear) Urine pH (4.5-7.5) Ur Specific [place] (1.000-1.030) Urine Protein (Negative) Urine Glucose (UA) (Negative) Urine Ketones (Negative) Urine Blood (Negative) Urine Nitrite (Negative) Urine Bilirubin (Negative) Urine Urobilinogen (Negative) Ur Leukocyte Esterase (Negative) Hepatitis C Ab Screen Neg (Neg) 07/24/19 07/24/19 07/24/19 Range/Units 20:33 20:33 20:33 WBC (4.8-10.8) K/uL RBC (4.7-6.1) M/uL Hgb (14.0-18.0) g/dL Hct (42-52) % MCV (80-100) fL MCH (25-34) pg MCHC (32-36) g/dL RDW Std Deviation (36.4-46.3) fL RDW Coeff of Roxy (11.5-14.5) % Plt Count (130-400) K/uL MPV (7.4-10.4) fL Immature Gran % (Auto) % Neut % (Auto) % Lymph % (Auto) % [place] % (Auto) % Eos % (Auto) % Baso % (Auto) % Immature Gran # (Auto) (0.00-0.02) K/uL Neut # (Auto) (1.4-6.5) K/uL Lymph # (Auto) (1.2-3.4) K/uL [place] # (Auto) (0.11-0.59) K/uL Eos # (Auto) (0-0.5) K/uL Baso # (Auto) (0-0.2) K/uL PT 10.8 (9.0-12.0) Seconds INR 1.0 (0.9-1.1) APTT 22.6 (21.0-31.0) Seconds PTT Ratio 0.8 Sodium 135 L (136-145) mmol/L Potassium 4.4 (3.5-5.1) mmol/L Chloride 103 (98-107) mmol/L Carbon Dioxide 27 (21-32) mmol/L Anion Gap 5.0 (3-11) BUN 16 (7-18) mg/dl Creatinine 1.33 (0.6-1.4) mg/dl Est Cr Clr Drug Dosing 67.7 ml/min Est GFR ( Amer) 65.5 Est GFR (Non-Af Amer) 56.5 BUN/Creatinine Ratio 12.2 (10-20) Glucose 152 H (70-99) mg/dl Calcium 9.4 (8.5-10.1) mg/dl Magnesium (1.8-2.4) mg/dl Total Bilirubin 0.6 (0.2-1) mg/dl Direct Bilirubin 0.2 (0-0.2) mg/dl AST 34 (15-37) U/L ALT 58 (12-78) U/L Alkaline Phosphatase 75 (45-117) U/L Troponin I < 0.015 (0-0.045) ng/ml Total Protein 8.5 H (6.4-8.2) gm/dl Albumin 4.3 (3.4-5.0) gm/dl Globulin (2.5-4.0) gm/dl Albumin/Globulin Ratio (0.9-2) Lipase 63 L (73-393) U/L Urine Color Yellow Urine Appearance Clear (Clear) Urine pH 7.0 (4.5-7.5) Ur Specific [place] 1.016 (1.000-1.030) Urine Protein Negative (Negative) Urine Glucose (UA) Negative (Negative) Urine Ketones Trace H (Negative) Urine Blood Negative (Negative) Urine Nitrite Negative (Negative) Urine Bilirubin Negative (Negative) Urine Urobilinogen Negative (Negative) Ur Leukocyte Esterase Negative (Negative) Hepatitis C Ab Screen (Neg) 07/24/19 Range/Units 20:33 WBC 9.57 (4.8-10.8) K/uL RBC 4.80 (4.7-6.1) M/uL Hgb 15.7 (14.0-18.0) g/dL Hct 47.0 (42-52) % MCV 97.9 (80-100) fL MCH 32.7 (25-34) pg MCHC 33.4 (32-36) g/dL RDW Std Deviation 49.4 H (36.4-46.3) fL RDW Coeff of Roxy 13.8 (11.5-14.5) % Plt Count 246 (130-400) K/uL MPV 10.0 (7.4-10.4) fL Immature Gran % (Auto) 0.1 % Neut % (Auto) 76.1 % Lymph % (Auto) 12.2 % [place] % (Auto) 10.0 % Eos % (Auto) 1.4 % Baso % (Auto) 0.2 % Immature Gran # (Auto) 0.01 (0.00-0.02) K/uL Neut # (Auto) 7.28 H (1.4-6.5) K/uL Lymph # (Auto) 1.17 L (1.2-3.4) K/uL [place] # (Auto) 0.96 H (0.11-0.59) K/uL Eos # (Auto) 0.13 (0-0.5) K/uL Baso # (Auto) 0.02 (0-0.2) K/uL PT (9.0-12.0) Seconds INR (0.9-1.1) APTT (21.0-31.0) Seconds PTT Ratio Sodium (136-145) mmol/L Potassium (3.5-5.1) mmol/L Chloride (98-107) mmol/L Carbon Dioxide (21-32) mmol/L Anion Gap (3-11) BUN (7-18) mg/dl Creatinine (0.6-1.4) mg/dl Est Cr Clr Drug Dosing ml/min Est GFR ( Amer) Est GFR (Non-Af Amer) BUN/Creatinine Ratio (10-20) Glucose (70-99) mg/dl Calcium (8.5-10.1) mg/dl Magnesium (1.8-2.4) mg/dl Total Bilirubin (0.2-1) mg/dl Direct Bilirubin (0-0.2) mg/dl AST (15-37) U/L ALT (12-78) U/L Alkaline Phosphatase (45-117) U/L Troponin I (0-0.045) ng/ml Total Protein (6.4-8.2) gm/dl Albumin (3.4-5.0) gm/dl Globulin (2.5-4.0) gm/dl Albumin/Globulin Ratio (0.9-2) Lipase (73-393) U/L Urine Color Urine Appearance (Clear) Urine pH (4.5-7.5) Ur Specific [place] (1.000-1.030) Urine Protein (Negative) Urine Glucose (UA) (Negative) Urine Ketones (Negative) Urine Blood (Negative) Urine Nitrite (Negative) Urine Bilirubin (Negative) Urine Urobilinogen (Negative) Ur Leukocyte Esterase (Negative) Hepatitis C Ab Screen (Neg) Diagnostic Findings ABDOMEN AND PELVIS CT WITH IV CONTRAST CT DOSE: 1329.24 mGycm HISTORY: Acute generalized abdominal pain status post fall abdominal pain TECHNIQUE: Multiaxial CT images of the abdomen and pelvis were performed fo llowing the IV administration of 90 cc of Optiray 320, A dose lowering technique was utilized adhering to the principles of ALARA. COMPARISON STUDY: CT abdomen and pelvis 11/11/2018 FINDINGS: Clear lung bases. Limited exam secondary to upper extremity positioning. No pneumatosis or pneumoperitoneum. The imaged inferior cardiac chambers appear unremarkable. Unremarkable spleen, pancreas, and adrenal glands. Contracted gallbladder. Hepatic steatosis without evidence of cirrhosis or hepatic mass lesion. Patency of the hepatic and portal veins. Mild cortical thinning of the bilateral kidneys. There are a few renal sinus cysts present bilaterally. No obstructive uropathy. Symmetric enhancement of the kidneys. Ureters, urinary bladder and prostate appear unremarkable. Mild to moderate mixed plaque of the abdominal aorta without aneurysm. Unremarkable IVC. No adenopathy. Distended fluid-filled distal esophagus and stomach. Dilated stool-filled, air and fluid-filled loops of small bowel within the left midabdomen measuring up to 3.7 cm transversely. There is an apparent transition point noted within the anterior central abdomen on image 244 series 3 with gradually decompressed small bowel seen distally to this area. Colonic diverticulosis. Unremarkable terminal ileum. Appendectomy. Multilevel degenerative changes are of the lumbar spine resulting in varying degrees of central canal and foraminal narrowing. Mild remote appearing compression deformity of the T12 vertebral body. No acute fracture. IMPRESSION: 1. No acute posttraumatic abnormality identified within the abdomen or pelvis. No evidence of acute solid organ injury or acute fracture. 2. Dilated air and fluid-filled as well as stool-filled loops of jejunum within the abdominal left upper quadrant and left midabdomen are noted with apparent transition point within the anterior lower abdomen as above. Although this is not congruent with the reported history of posttraumatic abdominal pain, these findings are suggestive of at least a partial small bowel obstruction. Follow-up recommended. 3. Hepatic steatosis. 4. Additional findings as above. (1) Abdominal pain Abdominal location: periumbilical Qualified Code(s): R10.33 - Periumbilical pain
[2019-07-25] MEDS: ACETAMINOPHEN 1,000 MG/100 ML VIAL IV PRN (19:30)
[2019-07-26 05:44] LABS: Basophils # (auto) 0.01 K/uL (0-0.2); Basophils % (auto) 0.1 %; Eosinophils # (auto) 0.22 K/uL (0-0.5); Eosinophils % (auto) 2.1 %; Hematocrit (blood only) 38.5 % (42-52); Hemoglobin 12.6 g/dL (14.0-18.0); Immature Granulocytes # (auto) 0.02 K/uL (0.00-0.02); Immature Granulocytes % (auto) 0.2 %; Lymphocytes # (auto) 1.33 K/uL (1.2-3.4); Lymphocytes % (auto) 12.8 %; Mean Corpuscular Hemoglobin 32.5 pg (25-34); Mean Corpuscular Hgb Conc 32.7 g/dL (32-36); Mean Corpuscular Volume 99.2 fL (80-100); Mean Platelet Volume 9.7 fL (7.4-10.4); Monocytes # (auto) 1.24 K/uL (0.11-0.59); Monocytes % (auto) 11.9 %; Neutrophils # (auto) 7.59 K/uL (1.4-6.5); Neutrophils % (auto) 72.9 %; Platelet Count 168 K/uL (130-400); RDW Coefficient of Variation 14.2 % (11.5-14.5); RDW Standard Deviation 51.4 fL (36.4-46.3); Red Blood Count 3.88 M/uL (4.7-6.1); White Blood Count 10.41 K/uL (4.8-10.8)
[2019-07-26] MEDS: ACETAMINOPHEN 1,000 MG/100 ML VIAL IV PRN ×3 (05:51→22:41)
[2019-07-26] MEDS: NSS + 20MEQ KCL 20 MEQ/1,000 ML BAG IV SCH ×2 (05:51→14:44)
[2019-07-26] MEDS: DiphenhydrAMINE HCL 50 MG/ML VIAL IV PRN ×2 (05:55→22:46)
[2019-07-26 06:22] LABS: Albumin Globulin Ratio 0.9 (0.9-2); Albumin Level 3.1 gm/dl (3.4-5.0); BUN Creatinine Ratio 16.3 (10-20); Calcium 8.5 mg/dl (8.5-10.1); Creatinine Clr Calc Pharmacy 76.5 ml/min; Est GFR (African American) 78.1; Est GFR (Non-African American) 67.4; Globulin 3.6 gm/dl (2.5-4.0); Total Protein 6.7 gm/dl (6.4-8.2)
[2019-07-26 07:02] LABS: Potassium 4.3 mmol/L (3.5-5.1)
[2019-07-26 07:07] LABS: Magnesium 2.1 mg/dl (1.8-2.4)
[2019-07-26] MEDS: FAMOTIDINE 20 MG in SYRINGE 3 ML IV SCH ×2 (08:14→20:31)
--- NOTE | 2019-07-26 09:19 | Surgery Progress Note ---
Date of Service July 26, 2019 Assessment & Plan (1) Abdominal pain: Partial SBO on CT scan + flatus, no bowel movement yet abdominal distention improving, no further nausea or vomiting no leukocytosis Plan: No acute surgical intervention required Can advance to clear liquids encourage ambulation in room and hallway to increase GI motility continue medical management Dr. Bertrand has seen and examined pt, agrees with above. Supervising Physician Co-Signing Physician Notes I interviewed and examined this patient I agree with the above note. He is feeling better. He is less distended and having less pain. Consider advancing diet as tolerated. Subjective feeling better today feeling less bloated passing gas, no bowel movement diet advancing to clear liquids no nausea or vomiting Physical Exam Constitutional: WD/WN, vitals as above no acute distress Respiratory: normal respiratory effort; no respiratory distress Gastrointestinal (Abdomen): Inspection/Auscultation: abdomen normal to inspection and + abdomen distended (mild, improved) Percussion/Palpation: + abdomen tender (upon deep palpation upper abdomen) and abdomen soft; no guarding and abdomen not rigid Skin: no rashes, warm and dry Psychiatric: Orientation: alert and oriented x 3 Results & Data Vital Signs (Past 12 Hours) Vital Signs Temp Pulse Resp BP Pulse Ox Pulse Ox 07/26/19 07:05 36.6 C 89 16 126/75 95 07/26/19 00:05 93 07/25/19 23:18 37.0 C 109 H 16 119/69 93 Laboratory Results 07/26/19 07/26/19 07/26/19 Range/Units 06:26 05:31 05:31 WBC 10.41 (4.8-10.8) K/uL RBC 3.88 L (4.7-6.1) M/uL Hgb 12.6 L (14.0-18.0) g/dL Hct 38.5 L (42-52) % MCV 99.2 (80-100) fL MCH 32.5 (25-34) pg MCHC 32.7 (32-36) g/dL RDW Std Deviation 51.4 H (36.4-46.3) fL RDW Coeff of Roxy 14.2 (11.5-14.5) % Plt Count 168 (130-400) K/uL MPV 9.7 (7.4-10.4) fL Immature Gran % (Auto) 0.2 % Neut % (Auto) 72.9 % Lymph % (Auto) 12.8 % [place] % (Auto) 11.9 % Eos % (Auto) 2.1 % Baso % (Auto) 0.1 % Immature Gran # (Auto) 0.02 (0.00-0.02) K/uL Neut # (Auto) 7.59 H (1.4-6.5) K/uL Lymph # (Auto) 1.33 (1.2-3.4) K/uL [place] # (Auto) 1.24 H (0.11-0.59) K/uL Eos # (Auto) 0.22 (0-0.5) K/uL Baso # (Auto) 0.01 (0-0.2) K/uL Sodium 138 (136-145) mmol/L Potassium 4.3 (3.5-5.1) mmol/L Chloride 109 H (98-107) mmol/L Carbon Dioxide 23 (21-32) mmol/L Anion Gap 6.0 (3-11) BUN 19 H (7-18) mg/dl Creatinine 1.15 (0.6-1.4) mg/dl Est Cr Clr Drug Dosing 76.5 ml/min Est GFR ( Amer) 78.1 Est GFR (Non-Af Amer) 67.4 BUN/Creatinine Ratio 16.3 (10-20) Glucose 85 (70-99) mg/dl Calcium 8.5 (8.5-10.1) mg/dl Magnesium 2.1 (1.8-2.4) mg/dl Total Bilirubin 1.0 (0.2-1) mg/dl AST 25 (15-37) U/L ALT 51 (12-78) U/L Alkaline Phosphatase 57 (45-117) U/L Total Protein 6.7 (6.4-8.2) gm/dl Albumin 3.1 L (3.4-5.0) gm/dl Globulin 3.6 (2.5-4.0) gm/dl Albumin/Globulin Ratio 0.9 (0.9-2) Hepatitis C Ab Screen (Neg) 07/25/19 Range/Units 05:27 WBC (4.8-10.8) K/uL RBC (4.7-6.1) M/uL Hgb (14.0-18.0) g/dL Hct (42-52) % MCV (80-100) fL MCH (25-34) pg MCHC (32-36) g/dL RDW Std Deviation (36.4-46.3) fL RDW Coeff of Roxy (11.5-14.5) % Plt Count (130-400) K/uL MPV (7.4-10.4) fL Immature Gran % (Auto) % Neut % (Auto) % Lymph % (Auto) % [place] % (Auto) % Eos % (Auto) % Baso % (Auto) % Immature Gran # (Auto) (0.00-0.02) K/uL Neut # (Auto) (1.4-6.5) K/uL Lymph # (Auto) (1.2-3.4) K/uL [place] # (Auto) (0.11-0.59) K/uL Eos # (Auto) (0-0.5) K/uL Baso # (Auto) (0-0.2) K/uL Sodium (136-145) mmol/L Potassium (3.5-5.1) mmol/L Chloride (98-107) mmol/L Carbon Dioxide (21-32) mmol/L Anion Gap (3-11) BUN (7-18) mg/dl Creatinine (0.6-1.4) mg/dl Est Cr Clr Drug Dosing ml/min Est GFR ( Amer) Est GFR (Non-Af Amer) BUN/Creatinine Ratio (10-20) Glucose (70-99) mg/dl Calcium (8.5-10.1) mg/dl Magnesium (1.8-2.4) mg/dl Total Bilirubin (0.2-1) mg/dl AST (15-37) U/L ALT (12-78) U/L Alkaline Phosphatase (45-117) U/L Total Protein (6.4-8.2) gm/dl Albumin (3.4-5.0) gm/dl Globulin (2.5-4.0) gm/dl Albumin/Globulin Ratio (0.9-2) Hepatitis C Ab Screen Neg (Neg) (1) Abdominal pain Abdominal location: periumbilical Qualified Code(s): R10.33 - Periumbilical pain
--- NOTE | 2019-07-26 10:43 | Hospitalist Progress Note ---
Date of Service July 26, 2019 Assessment & Plan (1) SBO (small bowel obstruction): Appreciate general surgery input, continue conservative measures. We will start clear liquid diet today. Encourage ambulation. If patient tolerates clear records, can restart patient's medications per his home regimen. (2) Acute exacerbation of chronic low back pain: Patient reports he fell off of a ladder from about 2.5 feet yesterday. X-rays in the ED revealed no acute findings. Less back pain, continue IV Toradol.. (3) Esophagitis: Distal esophagus with fluid-filled. Placed on famotidine 4 mg IV every 12 hours. (4) CAD (coronary artery disease): CAD/hypertension/history of AL- Hold amlodipine and aspirin and Zetia until patient is able to take p.o. (5) Essential hypertension: Patient is strict n.p.o. now, will hold off on medications. (6) Hyperlipidemia: See above. Admission and Anticipated Discharge Date Admission Date: July 24, 2019 Anticipated date of discharge: 07/27/19 Subjective Patient seen and examined. Patient tells me he feels better today, minimal pain in the lower abdomen. No bowel movement but is been having flatus. No nausea or vomiting. Remains afebrile. Physical Exam Constitutional: cooperative; no acute distress Neck: trachea midline, no thyromegaly Respiratory: normal respiratory effort Auscultation: lungs clear to auscultation bilaterally; no crackles, no rales, no rhonchi and no wheezes Cardiovascular: Rate/Rhythm: regular rate and regular rhythm Heart Sounds: normal S1 and normal S2 Gastrointestinal (Abdomen): Inspection/Auscultation: abdomen normal to inspect ion Percussion/Palpation: abdomen soft; abdomen nontender, no guarding, abdomen not rigid and no hepatosplenomegaly Skin: no rashes, warm and dry Results & Data Results & Data ([facility]) Vital Signs (Past 12 Hours) Vital Signs Temp Pulse Resp BP Pulse Ox Pulse Ox 07/26/19 07:05 36.6 C 89 16 126/75 95 07/26/19 00:05 93 07/25/19 23:18 37.0 C 109 H 16 119/69 93 PG Care Time/CCT Total # of Minutes Spent Total Time Spent with Patient: Total time spent is greater than 50% in coordination of care (as documented) at patient's floor/unit and/or counseling patient: Coding Level of Care Code 02799 Subseq Hosp Care Lvl 2 Diagnoses SBO (small bowel obstruction) K56.609 Acute exacerbation of chronic low back pain M54.5; G89.29 Esophagitis K20.9 CAD (coronary artery disease) I25.10 Essential hypertension I10 Hyperlipidemia E78.5
[2019-07-26] MEDS: KETOROLAC 30 MG/ML VIAL IV PRN (13:22)
[2019-07-27] MEDS: NSS + 20MEQ KCL 20 MEQ/1,000 ML BAG IV SCH (01:49)
[2019-07-27] MEDS: ACETAMINOPHEN 1,000 MG/100 ML VIAL IV PRN (05:48)
[2019-07-27] MEDS: DiphenhydrAMINE HCL 50 MG/ML VIAL IV PRN (05:49)
[2019-07-27 06:58] LABS: Basophils # (auto) 0.01 K/uL (0-0.2); Basophils % (auto) 0.2 %; Eosinophils # (auto) 0.23 K/uL (0-0.5); Eosinophils % (auto) 3.7 %; Hematocrit (blood only) 38.9 % (42-52); Hemoglobin 12.8 g/dL (14.0-18.0); Immature Granulocytes # (auto) 0.01 K/uL (0.00-0.02); Immature Granulocytes % (auto) 0.2 %; Lymphocytes % (auto) 19.3 %; Mean Corpuscular Hemoglobin 32.4 pg (25-34); Mean Corpuscular Hgb Conc 32.9 g/dL (32-36); Mean Corpuscular Volume 98.5 fL (80-100); Mean Platelet Volume 10.2 fL (7.4-10.4); Monocytes # (auto) 0.85 K/uL (0.11-0.59); Monocytes % (auto) 13.7 %; Neutrophils # (auto) 3.92 K/uL (1.4-6.5); Neutrophils % (auto) 62.9 %; Platelet Count 188 K/uL (130-400); RDW Coefficient of Variation 13.4 % (11.5-14.5); RDW Standard Deviation 48.6 fL (36.4-46.3); Red Blood Count 3.95 M/uL (4.7-6.1); White Blood Count 6.22 K/uL (4.8-10.8)
[2019-07-27 07:33] LABS: Albumin Level 3.1 gm/dl (3.4-5.0); BUN Creatinine Ratio 11.4 (10-20); Bilirubin,Total 0.6 mg/dl (0.2-1); Calcium 8.5 mg/dl (8.5-10.1); Creatinine Clr Calc Pharmacy 81.4 ml/min; Est GFR (African American) 84.2; Est GFR (Non-African American) 72.7; Globulin 3.2 gm/dl (2.5-4.0); Magnesium 2.1 mg/dl (1.8-2.4); Total Protein 6.4 gm/dl (6.4-8.2)
[2019-07-27] MEDS: FAMOTIDINE 20 MG in SYRINGE 3 ML IV SCH (08:03)
[2019-07-27] MEDS ORDERED: AMLODIPINE BESYLATE 5 MG TAB PO SCH (09:00)
--- NOTE | 2019-07-27 09:54 | Discharge Summary ---
Date of Service July 27, 2019 Admission HPI Per Admitting Provider The patient is a 64-year-old male with a past medical history including chronic pain syndrome, chronic back pain, hyperlipidemia, essential hypertension, CAD, esophagitis, small bowel obstruction x3, and history of [place]. He denies any recent change in oral intake for both liquids or solids. He has not had any fevers or chills. He has not any recent travels or sick exposures. He reports that the same symptoms are similar to his previous bowel obstruction symptoms. Work-up in the emergency department included CT scan of abdomen pelvis which showed distended fluid-filled distal esophagus and stomach. Dilated stool filled air and fluid-filled loops of small bowel within the left mid abdomen, with an apparent transition point noted within the anterior central abdomen. These findings are suggestive of at least a partial small bowel obstruction. Patient reports following off of a ladder from a height of 2.5 feet yesterday, with some aggravation of chronic back pain and hip pain, but had negative x-rays in the ED. Admission Exam Per Admitting Provider The patient is awake, alert and oriented 3, well developed and well nourished, normocephalic and atraumatic, lying in bed and in no acute distress. HEENT--PERRL, EOMI, mucous membranes and oropharynx dry. Neck--supple. No JVD. No bruits. Thyroid normal, trachea midline, no adeno larisa. Heart--normal S1 and S2. No murmurs, rubs or gallops. Lungs--clear bilaterally, no respiratory distress, no accessory muscle use. Abdomen--normal bowel sounds and soft. Nontender. Mildly tympanitic and distended. Overall decreased bowel sounds. Extremities--no cyanosis or clubbing. No edema. Dermatologic--normal skin turgor, normal color, no abnormal lymph nodes, no rash. Neurologic--cranial nerves II through XII grossly intact. Rheumatologic--normal range of motion. Psychiatric--normal affect. Principal Diagnosis 1. Partial obstruction, likely secondary to adhesions 2. Hypertension by history 3. CAD by history 4. History of low back pain, controlled with Tylenol #3 Discharge Exam Constitutional cooperative; no acute distress Neck trachea midline, no thyromegaly Respiratory normal respiratory effort Auscultation: lungs clear to auscultation bilaterally; no crackles, no rales, no rhonchi and no wheezes Cardiovascular Rate/Rhythm: regular rate and regular rhythm Heart Sounds: normal S1 and normal S2 Gastrointestinal (Abdomen) Inspection/Auscultation: abdomen normal to inspection Percussion/Palpation: abdomen soft; abdomen nontender, no guarding, abdomen not rigid and no hepatosplenomegaly Mildly obese, good bowel sounds Skin no rashes, warm and dry Discharge Data Allergies Allergy/AdvReac Type Severity Reaction Status Date / Time bee venom protein (honey bee) Allergy Severe Anaphylaxis Verified 07/24/19 21:08 adhesive Allergy Intermediate REDDENED, Verified 07/24/19 21:08 ITCHY, IRRITATED SKIN strawberry Allergy Mild Rash Verified 07/24/19 21:08 celecoxib [From Celebrex] AdvReac Intermediate NAUSEA, Verified 07/24/19 21:08 RAMIREZ, CHEST FELT TIGHT onion AdvReac Mild Nausea Verified 07/24/19 21:08 Consultations 07/24/19 22:04 ED Decision to Admit Stat 07/25/19 11:17 Consult General Surgery Routine Ordered Studies 07/24/19 20:27 CT abd pelvis IV con only Stat 07/24/19 20:33 CT head/brain wo con Stat ABDOMEN AND PELVIS CT WITH IV CONTRAST CT DOSE: 1329.24 mGycm HISTORY: Acute generalized abdominal pain status post fall abdominal pain TECHNIQUE: Multiaxial CT images of the abdomen and pelvis were performed follo wing the IV administration of 90 cc of Optiray 320, A dose lowering technique was utilized adhering to the principles of ALARA. COMPARISON STUDY: CT abdomen and pelvis 11/11/2018 FINDINGS: Clear lung bases. Limited exam secondary to upper extremity positioning. No pneumatosis or pneumoperitoneum. The imaged inferior cardiac chambers appear unremarkable. Unremarkable spleen, pancreas, and adrenal glands. Contracted gallbladder. Hepatic steatosis without evidence of cirrhosis or hepatic mass lesion. Patency of the hepatic and portal veins. Mild cortical thinning of the bilateral kidneys. There are a few renal sinus cysts present bilaterally. No obstructive uropathy. Symmetric enhancement of the kidneys. Ureters, urinary bladder and prostate appear unremarkable. Mild to moderate mixed plaque of the abdominal aorta without aneurysm. Unremarkable IVC. No adenopathy. Distended fluid-filled distal esophagus and stomach. Dilated stool-filled, air and fluid-filled loops of small bowel within the left midabdomen measuring up to 3.7 cm transversely. There is an apparent transition point noted within the anterior central abdomen on image 244 series 3 with gradually decompressed small bowel seen distally to this area. Colonic diverticulosis. Unremarkable terminal ileum. Appendectomy. Multilevel degenerative changes are of the lumbar spine resulting in varying degrees of central canal and foraminal narrowing. Mild remote appearing compression deformity of the T12 vertebral body. No acute fracture. IMPRESSION: 1. No acute posttraumatic abnormality identified within the abdomen or pelvis. No evidence of acute solid organ injury or acute fracture. 2. Dilated air and fluid-filled as well as stool-filled loops of jejunum within the abdominal left upper quadrant and left midabdomen are noted with apparent transition point within the anterior lower abdomen as above. Although this is not congruent with the reported history of posttraumatic abdominal pain, these findings are suggestive of at least a partial small bowel obstruction. Follow-up recommended. 3. Hepatic steatosis. 4. Additional findings as above. Hospital Course (1) SBO (small bowel obstruction): Patient was this limited after being found to have small bowel obstruction. It is felt this is secondary to adhesions. Patient had previous issues with this although none in the past 1.5 years. Patient was initially made n.p.o. and hydrated normal saline. He was slowly advanced to a clear liquid diet. General surgery was consulted to see the patient and felt that conservative measures were effective. Patient had refused an NG tube on presentation and did not have one during his admission. On the day of discharge, 07/26, patient tells me he had a full bowel movement overnight and he finished his clear liquids and had a significant appetite. Today we will advance his diet to a low residue diet and if he does well he can be discharged home in stable condition. Patient was told that if he has further abdominal pain or other issues that he should return to the emergency room. It is possible the patient may require lysis of adhesions some point the future but as he is now asymptomatic he can be discharged discharge close outpatient follow- up. (2) Acute exacerbation of chronic low back pain: Patient reports he fell off of a ladder from about 2.5 feet yesterday. X-rays in the ED revealed no acute findings. Patient was initially treated with IV Toradol as the n.p.o. He uses Tylenol 3 at home and can continue this now that he is back on oral medications. (3) Esophagitis: Distal esophagus with fluid-filled. Placed on famotidine 4 mg IV every 12 hours. (4) CAD (coronary artery disease): CAD/hypertension/history of [place]- Hold amlodipine and aspirin and Zetia until patient is able to take p.o. (5) Essential hypertension: Medications initially held secondary to n.p.o. status. Once he was tolerating orals, he was placed back on his amlodipine 2.5 mg. (6) Hyperlipidemia: See above. Total Time Total Time Spent Total Time Spent (In Minutes): Preparation of discharge in excess of 30 minutes Discharge Plan Discharge Items Patient Disposition: Home - Self-Care Reason For Visit: PSBO Discharge Diagnosis: 1. Partial obstruction, likely secondary to adhesions 2. Hypertension by history 3. CAD by history 4. History of low back pain, controlled with Tylenol #3 Activity: Resume your previous activity Lifting: Gradually increase as tolerated Sexual Activity: When tolerated Driving/Machine Use: No limitations Weightbearing: Full weightbearing Non-emergency contact: Primary Care Provider Call non-emergency contact if: your symptoms worsen and your temperature is above 101 Follow-up/Referrals: Akiko Decker PA-C [Primary Care Provider] - Diet: Heart Healthy Addtl Attending Provider Instructions: If your pain returns or other symptoms develop, return to the emergency room for further evaluation Pending Studies at Discharge: No Stand-Alone Forms: My [employer], Smoking Cessation Medications and DC Order Prescriptions: Continued aspirin [Aspir-81] 81 mg Tablet,Delayed Release (Dr/Ec) 81 mg PO BID RF: 0 acetaminophen-codeine [Tylenol-Codeine #3] 300-30 mg Tablet 1 tab PO TID RF: 0 cyclobenzaprine 10 mg Tablet 10 mg PO TID RF: 0 pantoprazole 40 mg Tablet,Delayed Release (Dr/Ec) 40 mg PO BID RF: 0 ibuprofen [Advil Liqui-Gel] 200 mg Capsule 200 mg PO QID PRN (Reason: Pain) RF: 0 ezetimibe [Zetia] 10 mg Tablet 10 mg PO DAILY RF: 0 diclofenac sodium [Voltaren] 1 % gel 1 applic EXT QID PRN (Reason: RIGHT SHOULDER PAIN) RF: 0 amlodipine 2.5 mg tablet 2.5 mg PO DAILY RF: 0 Discharge Orders: Discharge Order (Routine); Ordered 07/27/19 Ordered By: Fred Holliday Admission Data Admit Date/Time: 07/24/19 23:32 Attending Provider: Fred Holliday Admit Provider: Gavino Thomas Primary Care Provider: Akiko Decker Other Providers: Gavino Thomas ; Corky Bertrand Coding Level of Care Code D/C Day Management >30 mins Diagnoses SBO (small bowel obstruction) K56.609 Acute exacerbation of chronic low back pain M54.5; G89.29 Esophagitis K20.9 CAD (coronary artery disease) I25.10 Essential hypertension I10 Hyperlipidemia E78.5
--- NOTE | 2019-07-27 11:23 | Surgery Progress Note ---
Date of Service July 27, 2019 Assessment & Plan (1) Abdominal pain: Partial SBO on CT scan- resolving Return of bowel function no abdominal pain, nausea or vomiting with advancing diet Plan: No acute surgical intervention required Can advance diet as tolerated Recommend low fiber diet for next week and then increase as tolerated. okay from surgical standpoint for discharge if tolerates advanced diet Dr. Cabrera has seen patient, agrees with above. Subjective feeling good no abdominal pain, nausea, or vomiting passed formed bowel movement this morning tolerated clear liquids diet being advanced for lunch and if tolerates discharge home today Physical Exam Constitutional: WD/WN, vitals as above no acute distress Gastrointestinal (Abdomen): Inspection/Auscultation: abdomen normal to inspection and + abdominal surgical scar (RLQ); abdomen not distended Percussion/Palpation: abdomen soft; abdomen nontender, no guarding and abdomen not rigid Skin: no rashes, warm and dry Psychiatric: A+Ox3, euthymic affect Results & Data Vital Signs (Past 12 Hours) Vital Signs Temp Pulse Resp BP Pulse Ox 07/27/19 10:04 36.6 C 84 16 146/78 H 97 07/27/19 07:14 36.6 C 84 16 146/78 H 97 07/27/19 06:06 98 H 103/68 Laboratory Results 07/27/19 07/27/19 Range/Units 06:03 06:03 WBC 6.22 (4.8-10.8) K/uL RBC 3.95 L (4.7-6.1) M/uL Hgb 12.8 L (14.0-18.0) g/dL Hct 38.9 L (42-52) % MCV 98.5 (80-100) fL MCH 32.4 (25-34) pg MCHC 32.9 (32-36) g/dL RDW Std Deviation 48.6 H (36.4-46.3) fL RDW Coeff of Roxy 13.4 (11.5-14.5) % Plt Count 188 (130-400) K/uL MPV 10.2 (7.4-10.4) fL Immature Gran % (Auto) 0.2 % Neut % (Auto) 62.9 % Lymph % (Auto) 19.3 % [place] % (Auto) 13.7 % Eos % (Auto) 3.7 % Baso % (Auto) 0.2 % Immature Gran # (Auto) 0.01 (0.00-0.02) K/uL Neut # (Auto) 3.92 (1.4-6.5) K/uL Lymph # (Auto) 1.20 (1.2-3.4) K/uL [place] # (Auto) 0.85 H (0.11-0.59) K/uL Eos # (Auto) 0.23 (0-0.5) K/uL Baso # (Auto) 0.01 (0-0.2) K/uL Sodium 138 (136-145) mmol/L Potassium 4.0 (3.5-5.1) mmol/L Chloride 109 H (98-107) mmol/L Carbon Dioxide 25 (21-32) mmol/L Anion Gap 4.0 (3-11) BUN 12 (7-18) mg/dl Creatinine 1.08 (0.6-1.4) mg/dl Est Cr Clr Drug Dosing 81.4 ml/min Est GFR ( Amer) 84.2 Est GFR (Non-Af Amer) 72.7 BUN/Creatinine Ratio 11.4 (10-20) Glucose 77 (70-99) mg/dl Calcium 8.5 (8.5-10.1) mg/dl Magnesium 2.1 (1.8-2.4) mg/dl Total Bilirubin 0.6 (0.2-1) mg/dl AST 23 (15-37) U/L ALT 40 (12-78) U/L Alkaline Phosphatase 54 (45-117) U/L Total Protein 6.4 (6.4-8.2) gm/dl Albumin 3.1 L (3.4-5.0) gm/dl Globulin 3.2 (2.5-4.0) gm/dl Albumin/Globulin Ratio 1.0 (0.9-2) (1) Abdominal pain Abdominal location: periumbilical Qualified Code(s): R10.33 - Periumbilical pain
== END 2019-07-27 12:26 | disposition home or self-care (01) | DRG 390 ==
LOC: ED 20:10 → SUATTDRO 23:32 → 3E 23:32

== ENCOUNTER 2020-09-28 13:16 | Observation (INO) ==
--- NOTE | 2020-09-28 13:58 | Emergency Department Note ---
Impression & Plan Chest pain, High serum chloride ED Provider Note NAME: CHRISTINE ENRIQUEZ AGE: 65 SEX: M : 1955 ARRIVES VIA: Ambulance INFORMANT: Patient ED PROVIDER(S): Gary Hickman DO CHIEF COMPLAINT: Chest pain HPI: Patient is a 65-year-old male who presents to the ER for left-sided chest pain which started around 11 AM. He notes left arm pain and back pain with it. Describes it as a squeezing pain. Pain is currently completely relieved with aspirin and nitro. He was brought in by EMS. He was at the PCPs office. He had an IL with cardiac arrest in 2008. Denies any shortness of breath. No belly pain, nausea, vomiting, or diarrhea currently. He still has some mild back pain. He has no history of any aortic issues. ROS: See above HPI for pertinent positives & negatives. A total of 10 systems reviewed and were otherwise negative. PAST MEDICAL HISTORY:See Below PAST SURGICAL HISTORY:See Below FAMILY HISTORY:See Below SOCIAL HISTORY:See Below HOME MEDICATIONS:See Below ALLERGIES:See Below VITALS:See Below PHYSICAL EXAMINATION: GENERAL: Sitting up in bed, alert, well appearing, well nourished, no distress, non-toxic EYE EXAM: normal conjunctiva. OROPHARYNX: no exudate, no erythema, lips, buccal mucosa, and tongue normal and mucous membranes are moist NECK: supple, no nuchal rigidity, no adenopathy, non-tender LUNGS: Clear to auscultation. Normal chest wall mechanics HEART: no murmurs, S1 normal and S2 normal ABDOMEN: abdomen soft, non-tender, normo-active bowel sounds, no masses, no rebound or guarding. BACK: Back is symmetrical on inspection and there is no deformity, no midline tenderness, no CVA tenderness. SKIN: no rashes and no bruising UPPER EXTREMITIES: upper extremities are grossly normal. LOWER EXTREMITIES: No pitting edema. NEURO EXAM: Normal sensorium, cranial nerves II-XII grossly intact, normal speech, no gross weakness of arms, no gross weakness of legs. MEDICAL DECISION MAKING: Patient is a 65-year-old male with a past medical history of cardiac arrest, Ischemic cardiomyopathy with stents that presents the ERFor chest pain referred in by his PCP. He was driving he started to have chest squeezing which felt like his previous IL but not nearly as bad. He was brought in by EMS. Given aspirin nitro. Pain resolved in the chest.IV was established blood work was obtained. Labs show no significant leukocytosis or anemia. BMP with a slightly elevated chloride. LFTs bilirubin were unremarkable. Troponin was negative. Lipase was normal. Covid was negative. Chest x-ray without any focal infiltrates. EKG was fairly consistent with previous. He was pain-free. He was discussed with the hospitalist for further observation as he is a high risk from the heart score. Triage Nursing notes reviewed. Limited review of prior medical records performed Vital Signs: reviewed and remarkable for no significant abnormalities Differential diagnosis: Differential diagnoses includes but is not limited to acute coronary syndrome, myocardial infarction, pericarditis, pulmonary embolus, aortic dissection, pneumonia, pneumothorax, musculoskeletal, shingles, esophageal. ER treatment provided: See below Diagnostics interpreted by me: ECG: Sinus rhythm rate 82 Normal axis T wave inversion in aVL Septal Q waves QTC 413 Cardiac Monitoring: An order was placed for continuous cardiac monitoring. The monitor shows a rate of 80 with Sinus rhythm. Laboratory studies: As stated above and show below. Imaging studies: Portable AP upright 1 view of the chest shows no focal infiltrate or pneumothorax Consultation(s): none Procedures: none Critical Care: None Past Med/Surg History Medical History (Updated 09/28/20 @ 17:25 by Gary Hickman DO) CAD (coronary artery disease) s/p stent 2008. Chronic back pain Essential hypertension GERD (gastroesophageal reflux disease) History of claustrophobia SEVERE PER PT Ischemic cardiomyopathy EF 40-45% per 02/2019 echo Left ventricular apical thrombus Chronic, Dr Zelaya monitoring. Myocardial infarction 2008, with cardiac arrest x 2. F/U DR ZELAYA Numbness and tingling of both feet Ruptured disc, thoracic Ruptured lumbar disc SBO (small bowel obstruction) Small bowel obstruction Vertigo Surgical History History of appendectomy History of cardiac cath 2008 WITH IL 1 STENT PLACED AND 02/2019-[facility] History of colonoscopy History of esophagogastroduodenoscopy (EGD) History of heart artery stent Family History (Updated 09/28/20 @ 16:16 by Bobby Nino) Father Myocardial infarction Valvular heart disease Daughter Family history of diabetes mellitus Mother Breast cancer Myocardial infarction Social History (Updated 09/28/20 @ 16:16 by Bobby Desai Smoking Status: Never smoker Second Hand Exposure: Yes (FRIENDS SMOKED); Hx Alcohol Use: No (hasn't drank since 2008 when he had IL) Hx Substance Use: No Preferred Language: Moldovan Communication Ability: Effective Deliverer Food Required: No Beliefs That Will Affect Care: None marital status: Current Living Situation: Family Current Living Situation Comment: ex-, 2 children, step-child current occupational status: retired 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 Safe at Home: Yes Assistive Devices: Glasses and Walker Allergies Allergies Allergy/AdvReac Type Severity Reaction Status Date / Time bee venom protein (honey bee) Allergy Severe Anaphylaxis Verified 09/28/20 14:40 adhesive Allergy Intermediate REDDENED, Verified 09/28/20 14:40 ITCHY, IRRITATED SKIN-WITH WHITE TAPE strawberry Allergy Mild Rash, Verified 09/28/20 14:40 MIGRAINES-FEELS LIKE THE FLU celecoxib [From Celebrex] AdvReac Intermediate NAUSEA, Verified 09/28/20 14:40 HEADACHE, CHEST FELT TIGHT ezetimibe [From Zetia] AdvReac Intermediate MJUSCLE Verified 09/28/20 14:40 ACHES onion AdvReac Mild Nausea,MIGRAINES-FELT Verified 09/28/20 14:40 LIKE THE FLU Home Meds Home Medications Medication Instructions Recorded Confirmed cyclobenzaprine 10 mg PO TID 02/09/18 09/28/20 pantoprazole 40 mg PO BID 02/09/18 09/28/20 amlodipine 2.5 mg PO QPM 05/12/18 09/28/20 acetaminophen-codeine 1 tab PO TID PRN 01/13/20 09/28/20 [Tylenol-Codeine #3] aspirin [Aspir-81] 81 mg PO BID 01/13/20 09/28/20 famotidine 20 mg PO QPM 01/13/20 09/28/20 metoprolol tartrate 50 mg PO BID 01/13/20 09/28/20 polyethylene glycol 3350 [Miralax] 17 g PO DAILY PRN 01/13/20 09/28/20 diclofenac sodium 2 g TOPICAL QID PRN 09/28/20 09/28/20 Previous Rx's Medication Instructions Recorded lorazepam [Ativan] 0.5 mg PO DAILY #6 tab 01/14/20 ondansetron HCl [Zofran] 4 mg PO Q6H PRN #6 tab 01/14/20 Results & Data (ED) Vital Signs Vital Signs - 24 hr 09/28/20 13:23 09/28/20 13:26 09/28/20 13:28 Temperature 37.0 C Temperature Source Oral Pulse Rate 81 82 79 Pulse Rate from SpO2 Sensor 81 80 Respiratory Rate 20 18 18 Blood Pressure 113/61 113/61 Blood Pressure Mean 78 78 Blood Pressure Position Lying Pulse Oximetry 97 97 95 Oxygen Delivery Method Room Air Sepsis Recent Fever Within 48 Hours No Sepsis New/Unexplained Change in Mental Status N/A Sepsis Action Taken by Nursing No Action Required 09/28/20 13:30 09/28/20 13:40 09/28/20 13:50 Temperature Temperature Source Pulse Rate 80 77 73 Pulse Rate from SpO2 Sensor 80 77 Respiratory Rate 21 23 16 Blood Pressure Blood Pressure Mean Blood Pressure Position Pulse Oximetry 95 95 Oxygen Delivery Method Sepsis Recent Fever Within 48 Hours Sepsis New/Unexplained Change in Mental Status Sepsis Action Taken by Nursing 09/28/20 14:00 09/28/20 14:10 09/28/20 15:00 Temperature Temperature Source Pulse Rate 72 72 70 Pulse Rate from SpO2 Sensor 73 73 71 Respiratory Rate 16 16 17 Blood Pressure 120/62 Blood Pressure Mean 81 Blood Pressure Position Pulse Oximetry 97 98 99 Oxygen Delivery Method Sepsis Recent Fever Within 48 Hours Sepsis New/Unexplained Change in Mental Status Sepsis Action Taken by Nursing 09/28/20 15:01 09/28/20 15:10 09/28/20 15:20 Temperature Temperature Source Pulse Rate 64 64 67 Pulse Rate from SpO2 Sensor 64 66 71 Respiratory Rate 14 25 H 25 H Blood Pressure Blood Pressure Mean Blood Pressure Position Pulse Oximetry 98 96 90 Oxygen Delivery Method Sepsis Recent Fever Within 48 Hours Sepsis New/Unexplained Change in Mental Status Sepsis Action Taken by Nursing 09/28/20 15:30 09/28/20 15:31 09/28/20 15:40 Temperature Temperature Source Pulse Rate 63 62 68 Pulse Rate from SpO2 Sensor 64 62 68 Respiratory Rate 13 20 24 Blood Pressure 130/74 Blood Pressure Mean 92 Blood Pressure Position Pulse Oximetry 99 98 99 Oxygen Delivery Method Sepsis Recent Fever Within 48 Hours Sepsis New/Unexplained Change in Mental Status Sepsis Action Taken by Nursing 09/28/20 15:48 09/28/20 15:50 09/28/20 16:00 Temperature Temperature Source Pulse Rate 71 70 75 Pulse Rate from SpO2 Sensor 71 71 Respiratory Rate 18 26 H Blood Pressure 135/76 Blood Pressure Mean 95 Blood Pressure Position Pulse Oximetry 100 Oxygen Delivery Method Sepsis Recent Fever Within 48 Hours Sepsis New/Unexplained Change in Mental Status Sepsis Action Taken by Nursing 09/28/20 16:02 09/28/20 16:10 09/28/20 16:20 Temperature Temperature Source Pulse Rate 72 71 71 Pulse Rate from SpO2 Sensor 72 72 71 Respiratory Rate 20 13 15 Blood Pressure 127/92 Blood Pressure Mean 103 Blood Pressure Position Pulse Oximetry 99 97 99 Oxygen Delivery Method Sepsis Recent Fever Within 48 Hours Sepsis New/Unexplained Change in Mental Status Sepsis Action Taken by Nursing 09/28/20 16:22 09/28/20 16:30 09/28/20 16:31 Temperature Temperature Source Pulse Rate 69 68 73 Pulse Rate from SpO2 Sensor 70 68 71 Respiratory Rate 17 12 15 Blood Pressure 122/70 121/73 Blood Pressure Mean 87 89 Blood Pressure Position Pulse Oximetry 99 99 98 Oxygen Delivery Method Sepsis Recent Fever Within 48 Hours Sepsis New/Unexplained Change in Mental Status Sepsis Action Taken by Nursing 09/28/20 16:40 09/28/20 16:46 09/28/20 16:50 Temperature Temperature Source Pulse Rate 74 80 81 Pulse Rate from SpO2 Sensor 75 Respiratory Rate 22 19 Blood Pressure 134/71 Blood Pressure Mean 92 Blood Pressure Position Pulse Oximetry 99 Oxygen Delivery Method Sepsis Recent Fever Within 48 Hours Sepsis New/Unexplained Change in Mental Status Sepsis Action Taken by Nursing 09/28/20 17:00 Temperature Temperature Source Pulse Rate 84 Pulse Rate from SpO2 Sensor Respiratory Rate 19 Blood Pressure Blood Pressure Mean Blood Pressure Position Pulse Oximetry Oxygen Delivery Method Sepsis Recent Fever Within 48 Hours Sepsis New/Unexplained Change in Mental Status Sepsis Action Taken by Nursing Laboratory Data Result diagrams: 09/28/20 13:31 09/28/20 13:31 Lab Results 09/28/20 09/28/20 09/28/20 Range/Units 13:31 13:31 13:31 WBC 6.78 (4.8-10.8) K/uL RBC 4.36 L (4.7-6.1) M/uL Hgb 14.2 (14.0-18.0) g/dL Hct 41.0 L (42-52) % MCV 94.0 (80-100) fL MCH 32.6 (25-34) pg MCHC 34.6 (32-36) g/dL RDW Std Deviation 45.3 (36.4-46.3) fL RDW Coeff of Roxy 13.1 (11.5-14.5) % Plt Count 217 (130-400) K/uL MPV 12.2 H (7.4-10.4) fL Immature Gran % (Auto) 0.3 % Neut % (Auto) 60.4 % Lymph % (Auto) 19.3 % [place] % (Auto) 14.6 % Eos % (Auto) 5.3 % Baso % (Auto) 0.1 % Neut # (Auto) 4.09 (1.4-6.5) K/uL Lymph # (Auto) 1.31 (1.2-3.4) K/uL [place] # (Auto) 0.99 H (0.11-0.59) K/uL Eos # (Auto) 0.36 (0-0.5) K/uL Baso # (Auto) 0.01 (0-0.2) K/uL Immature Gran # (Auto) 0.02 (0.00-0.02) K/uL APTT 22.0 (21.0-31.0) Seconds PTT Ratio 0.8 Sodium 138 (136-145) mmol/L Potassium 4.6 (3.5-5.1) mmol/L Chloride 109 H (98-107) mmol/L Carbon Dioxide 22 (21-32) mmol/L Anion Gap 7.0 (3-11) BUN 27 H (7-18) mg/dl Creatinine 1.30 (0.6-1.4) mg/dl Est Cr Clr Drug Dosing 66.9 ml/min Est GFR ( Amer) 66.8 ml/min Est GFR (Non-Af Amer) 57.7 ml/min BUN/Creatinine Ratio 20.9 H (10-20) Glucose 113 H (70-99) mg/dl Calcium 9.1 (8.5-10.1) mg/dl Total Bilirubin 0.6 (0.2-1) mg/dl AST 23 (15-37) U/L ALT 52 (12-78) U/L Alkaline Phosphatase 70 (45-117) U/L Troponin I < 0.015 (0-0.045) ng/ml Total Protein 7.4 (6.4-8.2) gm/dl Albumin 3.7 (3.4-5.0) gm/dl Globulin 3.6 (2.5-4.0) gm/dl Albumin/Globulin Ratio 1.0 (0.9-2) Lipase 86 (73-393) U/L Specimen Hemolysis COVID-19 Eval Order SARS-CoV-2 (PCR) (Negative) 09/28/20 09/28/20 Range/Units 13:51 13:51 WBC (4.8-10.8) K/uL RBC (4.7-6.1) M/uL Hgb (14.0-18.0) g/dL Hct (42-52) % MCV (80-100) fL MCH (25-34) pg MCHC (32-36) g/dL RDW Std Deviation (36.4-46.3) fL RDW Coeff of Roxy (11.5-14.5) % Plt Count (130-400) K/uL MPV (7.4-10.4) fL Immature Gran % (Auto) % Neut % (Auto) % Lymph % (Auto) % [place] % (Auto) % Eos % (Auto) % Baso % (Auto) % Neut # (Auto) (1.4-6.5) K/uL Lymph # (Auto) (1.2-3.4) K/uL [place] # (Auto) (0.11-0.59) K/uL Eos # (Auto) (0-0.5) K/uL Baso # (Auto) (0-0.2) K/uL Immature Gran # (Auto) (0.00-0.02) K/uL APTT (21.0-31.0) Seconds PTT Ratio Sodium (136-145) mmol/L Potassium (3.5-5.1) mmol/L Chloride (98-107) mmol/L Carbon Dioxide (21-32) mmol/L Anion Gap (3-11) BUN (7-18) mg/dl Creatinine (0.6-1.4) mg/dl Est Cr Clr Drug Dosing ml/min Est GFR ( Amer) ml/min Est GFR (Non-Af Amer) ml/min BUN/Creatinine Ratio (10-20) Glucose (70-99) mg/dl Calcium (8.5-10.1) mg/dl Total Bilirubin (0.2-1) mg/dl AST (15-37) U/L ALT (12-78) U/L Alkaline Phosphatase (45-117) U/L Troponin I (0-0.045) ng/ml Total Protein (6.4-8.2) gm/dl Albumin (3.4-5.0) gm/dl Globulin (2.5-4.0) gm/dl Albumin/Globulin Ratio (0.9-2) Lipase (73-393) U/L Specimen Hemolysis COVID-19 Eval Order Covid19 at [facility] SARS-CoV-2 (PCR) NEGATIVE (Negative) Administered Medications Discontinued Medications Morphine Sulfate (Morphine Sulfate 2 Mg/Ml Carp) 2 mg IV NOW STA Stop: 09/28/20 16:06 Last Admin: 09/28/20 16:19 Dose: 2 mg Documented by: [id number] Nitroglycerin (Nitroglycerin 2% Ointment 30gm Tube) Confirm Administered Dose 18 inch .ROUTE .STK-MED ONE Stop: 09/28/20 15:47 Last Admin: 09/28/20 15:50 Dose: 18 inch Documented by: [id number] Oxycodone HCl (Oxycodone Hcl Ir 5 Mg Tab (Immediate Release)) 5 mg PO NOW STA Stop: 09/28/20 15:27 Last Admin: 09/28/20 15:33 Dose: 5 mg Documented by: [id number] Imaging Data Radiologist's Impression: Chest X-Ray 09/28/20 13:36 XR chest 1V portable HISTORY: Atypical Chest Pain COMPARISON: Chest 07/24/2019. FINDINGS: The lungs are clear. Cardiac silhouette is normal in size. No pleural effusions. No pneumothorax. IMPRESSION: No acute process. ACT 112: Negative or not required by law. Electronically signed by: Ignacio Santos M.D. 09/28/2020 2:03 PM Discharge Plan Visit Data Chief Complaint: Chest Pain Stated Complaint: CHEST PAIN ED Provider: Gary Hickman Discharge Problem: Chest pain, High serum chloride Patient Disposition: Admitted As Inpatient Discharge Instructions Interventions: ED Discharge Assessment Last Done: 09/28/20 17:08 Discharge Problem: Chest pain Qualifiers: Chest pain type: unspecified Qualified Code(s): R07.9 - Chest pain, unspecified
[2020-09-28 14:02] LABS: Basophils # (auto) 0.01 K/uL (0-0.2); Basophils % (auto) 0.1 %; Eosinophils # (auto) 0.36 K/uL (0-0.5); Eosinophils % (auto) 5.3 %; Hemoglobin 14.2 g/dL (14.0-18.0); Immature Granulocytes # (auto) 0.02 K/uL (0.00-0.02); Immature Granulocytes % (auto) 0.3 %; Lymphocytes # (auto) 1.31 K/uL (1.2-3.4); Lymphocytes % (auto) 19.3 %; Mean Corpuscular Hemoglobin 32.6 pg (25-34); Mean Corpuscular Hgb Conc 34.6 g/dL (32-36); Mean Platelet Volume 12.2 fL (7.4-10.4); Monocytes # (auto) 0.99 K/uL (0.11-0.59); Monocytes % (auto) 14.6 %; Neutrophils # (auto) 4.09 K/uL (1.4-6.5); Neutrophils % (auto) 60.4 %; Platelet Count 217 K/uL (130-400); RDW Coefficient of Variation 13.1 % (11.5-14.5); RDW Standard Deviation 45.3 fL (36.4-46.3); Red Blood Count 4.36 M/uL (4.7-6.1); White Blood Count 6.78 K/uL (4.8-10.8)
--- NOTE | 2020-09-28 14:04 | XRay Report ---
XR chest 1V portable HISTORY: Atypical Chest Pain COMPARISON: Chest 07/24/2019. FINDINGS: The lungs are clear. Cardiac silhouette is normal in size. No pleural effusions. No pneumot horax. IMPRESSION: No acute process. ACT 112: Negative or not required by law. Electronically signed by: Ignacio Santos M.D. 09/28/2020 2:03 PM
[2020-09-28 14:19] LABS: Partial Thromboplastin Ratio 0.8
[2020-09-28 14:35] LABS: Alanine Aminotransferase 52 U/L (12-78); Albumin Level 3.7 gm/dl (3.4-5.0); Alkaline Phosphatase 70 U/L (45-117); Aspartate Aminotransferase 23 U/L (15-37); BUN Creatinine Ratio 20.9 (10-20); Bilirubin,Total 0.6 mg/dl (0.2-1); Blood Urea Nitrogen 27 mg/dl (7-18); Calcium 9.1 mg/dl (8.5-10.1); Carbon Dioxide 22 mmol/L (21-32); Chloride 109 mmol/L (98-107); Creatinine Clr Calc Pharmacy 66.9 ml/min; Est GFR (African American) 66.8 ml/min; Est GFR (Non-African American) 57.7 ml/min; Globulin 3.6 gm/dl (2.5-4.0); Glucose 113 mg/dl (70-99); Lipase 86 U/L (73-393); Potassium 4.6 mmol/L (3.5-5.1); Sodium 138 mmol/L (136-145); Total Protein 7.4 gm/dl (6.4-8.2); Troponin I < 0.015 ng/ml (0-0.045)
--- NOTE | 2020-09-28 15:16 | Electrocardiogram Report ---
Test Reason : Blood Pressure : / mmHG Vent. Rate : 082 BPM Atrial Rate : 082 BPM P-R Int : 180 ms QRS Dur : 086 ms QT Int : 354 ms P-R-T Axes : 052 012 087 degrees QTc Int : 413 ms Normal sinus rhythm When compared with ECG of 13-JAN-2020 22:21, Questionable change in initial forces of Anterior leads Confirmed by Alex Nolasco ([id number]) on 09/28/2020 3:15:50 PM Referred By: REFERRED SELF Confirmed By:Micheal Nolasco
[2020-09-28] MEDS ORDERED: oxyCODONE HCL IR 5 MG TAB (IMMEDIATE RELEASE) PO STA (15:26)
--- NOTE | 2020-09-28 15:32 | History & Physical Report ---
Date of Service September 28, 2020 Assessment & Plan (1) Chest pain: Today's presenting chest and arm symptoms are similar to his STEMI in 2009. Despite nitro SL (3-4 tablets), nitropaste, oxycodone, and morphine he continues with left axillary pain and left inferior scapular pain, 3-4/10 on pain scale. EKG without ischemic changes and initial troponin is negative. Given the refractoriness of his symptoms, the similarity of his pain to his DE pain in 2009, etc I called and spoke with Dr Melton. Plan is for urgent heart cath to rule out CAD as the cause of his presentation. Patient is NPO and hemodynamically stable otherwise. Patient is aware of this plan. (2) CAD (coronary artery disease): Check lipids in am. Check echo in am. Telemetry. Continue asa, beta geri. 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 Med list at admission today does not show a statin or zetia use. However, the external medication history function shows he had 5mg crestor prescribed on 06/12/[address] Zelaya. Will need to inquire with patient if he is taking it. (3) Ischemic cardiomyopathy: Previous echo (in the [facility] record) showed EF 40-45%. Will obtain another echo in am. Continue beta geri. If EF is still depressed consider low-dose FALLON or ARB. (4) Essential hypertension: Controlled since ER presentation. Continue amlodipine and metoprolol. (5) Chronic back pain: It appears he takes tylenol w/ codeine prn for this along with flexeril. No low back pain complaints today. (6) Hyperlipidemia: Crestor 5mg daily was prescribed on 06/12/[address] Zelaya per the med rec history function. Will need to inquire with patient if taking. He apparently has had myalgias with other statins?? Check lipids in am. (7) GERD (gastroesophageal reflux disease): If cath does not show occlusive disease could some of his symptoms be GI? In meantime - PPI twice daily. (8) Neck pain: Check c-spine films given his musculoskeletal complaints. (9) Shoulder pain: LEFT. plain x-rays, then go from there. (10) Left ventricular apical thrombus: per records, but not on anticougulation for such. check echo. (11) Anxiety: if cath does not show occlusive disease perhaps anxiety is playing a role. he was very anxious during the visit today and mentioned that he has a very ch allenging home life. ativan prn as per home dosing. (12) DVT prophylaxis: defer on chemical means for now unless patient stays beyond tomorrow results of cath to dictate the remainder of his stay History of Present Illness Chief Complaint: chest pain Primary Care Provider: Akiko Decker PA-C 65yo male with known CAD, s/p STEMI in 2008 with bare metal stent, cardiac arrest in the midst of his AMI, chronic systolic CHF EF 40-45% 2nd ischemic cardiomyopathy, GERD, and HTN presents with left shoulder, left arm, left axillary, and left chest pain beginning earlier today. Patient was at the [facility] with his daughter and was waiting in his car for her when he acutely developed left shoulder and left arm pain. This persisted, and he ultimately developed left chest pain. He drove himself to Dr Zelaya's office, and while there had nitroglycerin and EKG. The nitro helped his pain. EMS was summoned, and en route to [facility] he had 2-3 more SL nitros which helped his pain further. Pain at its peak earlier today was "7.5". Since arrival the pain has improved but has not fully resolved. He states he continues to have pain just inferior to the left scapula, "about 3-4." He also continues with pain in the left axillary region, about a "1." During my visit I ordered 1" of nitropaste and despite such he had minimal relief of symptoms. He had taken his daily aspirin at home this am. Denies any dyspnea at rest, nausea, emesis, diaphoresis, jaw/neck pain. Patient reports that today's symptoms are VERY SIMILAR to his pain he had in 2008 during his acute DE. Has had orthostatic type symptoms chronically and had an episode 2 days ago while working outside. During that spell he felt very weak and fatigued; had to lay down in his home for 45 minutes before the symptoms resolved. No chest pain during that spell. Saw Dr Zelaya 1-2 months ago. Apparently was wheezing. Inhaler begun (symbicort?) but later stopped due to development of hoarse voice. His hoarse voice has persisted despite being off the inhaler. Does endorse chronic ADEN but no change in such over the last few years. He has been having troubles with his neck recently - pain with movement. He also has had heartburn for which he takes PPI bid. Finally, admits to anxiety. He is living with his ex-, his 2 children, and a step-daughter which is stress-provoking for him. Allergies Allergy/AdvReac Type Severity Reaction Status Date / Time bee venom protein (honey bee) Allergy Severe Anaphylaxis Verified 09/28/20 14:40 adhesive Allergy Intermediate REDDENED, Verified 09/28/20 14:40 ITCHY, IRRITATED SKIN-WITH WHITE TAPE strawberry Allergy Mild Rash, Verified 09/28/20 14:40 MIGRAINES-FEELS LIKE THE FLU celecoxib [From Celebrex] AdvReac Intermediate NAUSEA, Verified 09/28/20 14:40 HEADACHE, CHEST FELT TIGHT ezetimibe [From Zetia] AdvReac Intermediate MJUSCLE Verified 09/28/20 14:40 ACHES onion AdvReac Mild Nausea,MIGRAINES-FELT Verified 09/28/20 14:40 LIKE THE FLU Home Medications Medication Instructions Recorded Confirmed Type cyclobenzaprine 10 mg PO TID 02/09/18 09/28/20 History pantoprazole 40 mg PO BID 02/09/18 09/28/20 History amlodipine 2.5 mg PO QPM 05/12/18 09/28/20 History acetaminophen-codeine 1 tab PO TID PRN 01/13/20 09/28/20 History [Tylenol-Codeine #3] aspirin [Aspir-81] 81 mg PO BID 01/13/20 09/28/20 History famotidine 20 mg PO QPM 01/13/20 09/28/20 History metoprolol tartrate 50 mg PO BID 01/13/20 09/28/20 History polyethylene glycol 3350 [Miralax] 17 g PO DAILY PRN 01/13/20 09/28/20 History lorazepam [Ativan] 0.5 mg PO DAILY #6 tab 01/14/20 09/28/20 Rx ondansetron HCl [Zofran] 4 mg PO Q6H PRN #6 tab 01/14/20 09/28/20 Rx diclofenac sodium 2 g TOPICAL QID PRN 09/28/20 09/28/20 History Past Med/Surg History Medical History (Updated 09/28/20 @ 23:05 by Bobby Nino) CAD (coronary artery disease) s/p stent 2008. Chronic back pain Essential hypertension GERD (gastroesophageal reflux disease) History of claustrophobia SEVERE PER PT Ischemic cardiomyopathy EF 40-45% per 02/2019 echo Left ventricular apical thrombus Chronic, Dr Zelaya monitoring. Myocardial infarction 2008, with cardiac arrest x 2. F/U DR ZELAYA Numbness and tingling of both feet Ruptured disc, thoracic Ruptured lumbar disc SBO (small bowel obstruction) Small bowel obstruction Vertigo Surgical History History of appendectomy History of cardiac cath 2008 WITH DE 1 STENT PLACED AND 02/2019-[facility] History of colonoscopy History of esophagogastroduodenoscopy (EGD) History of heart artery stent Family History (Updated 09/28/20 @ 16:16 by Bobby Nino) Father Myocardial infarction Valvular heart disease Daughter Family history of diabetes mellitus Mother Breast cancer Myocardial infarction Social History (Updated 09/28/20 @ 16:16 by Bobby Nino) Smoking Status: Never smoker Second Hand Exposure: Yes (FRIENDS SMOKED); Hx Alcohol Use: No Hx Substance Use: No Preferred Language: Cook Islander Communication Ability: Effective Fire Prevention Captain Required: No Beliefs That Will Affect Care: None marital status: Current Living Situation: Alone Current Living Situation Comment: ex-, 2 children, step-child current occupational status: retired How many Children do You have: 2 Other Information That Helps Us Care for You: 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 Feels Safe at Home: Yes Safety Concerns: Feels Safe At This Time Assistive Devices: None Review of Systems Constitutional: + weakness; no fever, no chills, no fatigue, no anorexia and no weight loss Eyes: no worsening vision Ear, Nose, Mouth, Throat: + sore throat (occasional ) and + hoarseness; no nasal congestion Respiratory: + cough, + dyspnea on exertion and + wheezing Cardiovascular: as per Subjective / HPI and + chest pain; no dyspnea at rest, no palpitations and no edema Gastrointestinal: + belching and + heartburn; no abdominal pain, no nausea, no vomiting and no blood in stools Genitourinary: no dysuria Musculoskeletal: as per Subjective / HPI, + back pain and + radicular pain (left foot - numbness - chronic ) Integumentary: no rash Neurologic: + loss of sensation (feet) Psychiatric: + anxiety; no depression Endocrine: no diabetes Hematologic / Lymphatic: no easy bruising Physical Exam Constitutional: + obese; no acute distress and no altered mental status anxious Eyes: PERRL ENMT: external ear and nose normal, oropharynx normal Neck: trachea midline, no thyromegaly Respiratory: no respiratory distress Auscultation: + wheezes; no crackles Cardiovascular: Rate/Rhythm: regular rate and regular rhythm Heart Sounds: normal S1 and normal S2; no murmur Vessels: posterior tibial pulses present and dorsalis pedis pulses present; no JVD Extremities: no edema Chest (Breasts): Additional Comments: no reproducible chest wall tenderness Gastrointestinal (Abdomen): normal bowel sounds, soft, nontender, no hepatosplenomegaly Musculoskeletal: scapular tenderness to palpation on left ; somewhat provoked by moving the left arm Skin: no rashes, warm and dry Neurologic: moves all extremities Psychiatric: Orientation: alert and oriented x 3 Affect: + anxious affect Lymphatic: no cervical lymphadenopathy Results & Data Results & Data ([facility]) Vital Signs (Past 12 Hours) Vital Signs Temp Pulse Resp BP Pulse Ox 09/28/20 15:01 64 14 98 09/28/20 15:00 70 17 120/62 99 09/28/20 14:10 72 16 98 09/28/20 14:00 72 16 97 09/28/20 13:50 73 16 09/28/20 13:40 77 23 95 09/28/20 13:30 80 21 95 09/28/20 13:28 79 18 95 09/28/20 13:26 37.0 C 82 18 113/61 97 09/28/20 13:23 81 20 113/61 97 Laboratory Results Labs 09/28/20 09/28/20 09/28/20 13:31 13:31 13:31 WBC 6.78 RBC 4.36 L Hgb 14.2 Hct 41.0 L MCV 94.0 MCH 32.6 MCHC 34.6 RDW Std Deviation 45.3 RDW Coeff of Roxy 13.1 Plt Count 217 MPV 12.2 H Immature Gran % (Auto) 0.3 Neut % (Auto) 60.4 Lymph % (Auto) 19.3 [place] % (Auto) 14.6 Eos % (Auto) 5.3 Baso % (Auto) 0.1 Neut # (Auto) 4.09 Lymph # (Auto) 1.31 [place] # (Auto) 0.99 H Eos # (Auto) 0.36 Baso # (Auto) 0.01 Immature Gran # (Auto) 0.02 APTT 22.0 PTT Ratio 0.8 Sodium 138 Potassium 4.6 Chloride 109 H Carbon Dioxide 22 Anion Gap 7.0 BUN 27 H Creatinine 1.30 Est Cr Clr Drug Dosing 66.9 Est GFR ( Amer) 66.8 Est GFR (Non-Af Amer) 57.7 BUN/Creatinine Ratio 20.9 H Glucose 113 H Calcium 9.1 Total Bilirubin 0.6 AST 23 ALT 52 Alkaline Phosphatase 70 Troponin I < 0.015 Total Protein 7.4 Albumin 3.7 Globulin 3.6 Albumin/Globulin Ratio 1.0 Lipase 86 Specimen Hemolysis COVID-19 Eval Order SARS-CoV-2 (PCR) 09/28/20 09/28/20 13:51 13:51 WBC RBC Hgb Hct MCV MCH MCHC RDW Std Deviation RDW Coeff of Roxy Plt Count MPV Immature Gran % (Auto) Neut % (Auto) Lymph % (Auto) [place] % (Auto) Eos % (Auto) Baso % (Auto) Neut # (Auto) Lymph # (Auto) [place] # (Auto) Eos # (Auto) Baso # (Auto) Immature Gran # (Auto) APTT PTT Ratio Sodium Potassium Chloride Carbon Dioxide Anion Gap BUN Creatinine Est Cr Clr Drug Dosing Est GFR ( Amer) Est GFR (Non-Af Amer) BUN/Creatinine Ratio Glucose Calcium Total Bilirubin AST ALT Alkaline Phosphatase Troponin I Total Protein Albumin Globulin Albumin/Globulin Ratio Lipase Specimen Hemolysis COVID-19 Eval Order Covid19 at [facility] SARS-CoV-2 (PCR) NEGATIVE Diagnostic Findings Chest X-Ray 09/28/20 13:36 XR chest 1V portable HISTORY: Atypical Chest Pain COMPARISON: Chest 07/24/2019. FINDINGS: The lungs are clear. Cardiac silhouette is normal in size. No pleural effusions. No pneumothorax. IMPRESSION: No acute process. ACT 112: Negative or not required by law. Electronically signed by: Ignacio Santos M.D. 09/28/2020 2:03 PM Cervical Spine X-Ray 09/28/20 18:28 CERVICAL SPINE 5 VIEWS HISTORY: left arm pain; eval DJD c-spine COMPARISON: None. FINDINGS: The cervical spine is visualized from C1 through the inferior endplate of C5. There is no fracture. No subluxation. Visualized intervertebral disc spaces are preserved. Few osteophytes are seen representing degenerative process. Prevertebral soft tissues and the atlantodens interval are intact. IMPRESSION: No fracture or subluxation within the cervical spine. Mild degenerative changes. Limited exam. ACT 112: Negative or not required by law. Electronically signed by: Norma Castorena DO 09/28/2020 7:43 PM Shoulder X-Ray 09/28/20 18:28 XR shoulder LT min 2V routine CLINICAL HISTORY: left shoulder pain COMPARISON: June 18, 2019 DISCUSSION: No acute fracture or dislocation seen. No blastic or lytic lesions demonstrated. Degenerative changes of the acromioclavicular joint are again seen. IMPRESSION: No acute fracture or dislocation. ACT 112: Negative or not required by law. The above report was generated using voice recognition software. It may contain grammatical, syntax or spelling errors. Electronically signed by: Norma Castorena DO 09/28/2020 7:39 PM EKG - NSR, no ST changes Code Status & VTE Plan Code Status full VTE Prophylaxis Plan VTE Prophylaxis will be ordered: Yes PG Care Time/CCT Total # of Minutes Spent Total Time Spent with Patient: Total time spent is greater than 50% in coordination of care (as documented) at patient's floor/unit and/or counseling patient: Coding Level of Care Code 81024 OBS Care - Level 3 Diagnoses Chest pain R07.9 Chest pain type: unspecified CAD (coronary artery disease) I25.10 Ischemic cardiomyopathy I25.5 Essential hypertension I10 Chronic back pain M54.9; G89.29 Back pain laterality: unspecified Back pain location: back pain in unspecified location Hyperlipidemia E78.5 GERD (gastroesophageal reflux disease) K21.9 Neck pain M54.2 Shoulder pain M25.519 Left ventricular apical thrombus I51.3 Anxiety F41.9 DVT prophylaxis Z29.9 (1) Chronic back pain Back pain laterality: unspecified Back pain location: back pain in unspecified location Qualified Code(s): M54.9 - Dorsalgia, unspecified; G89.29 - Other chronic pain (2) Chest pain Chest pain type: unspecified Qualified Code(s): R07.9 - Chest pain, unspecified
[2020-09-28] MEDS ORDERED: NITROGLYCERIN 2% OINTMENT 30GM TUBE ONE (15:46)
[2020-09-28] MEDS ORDERED: MoRPHine SULFATE 2 MG/ML CARP IV STA (16:05)
[2020-09-28] MEDS ORDERED: fentaNYL citrate 100 MCG/2 ML VIAL ONE (16:40)
[2020-09-28] MEDS ORDERED: HEPARIN (PORCINE) 1000 UNIT/ML 10 ML (CATH LAB USE ONLY) ONE (16:40)
[2020-09-28] MEDS ORDERED: MIDAZOLAM HCL 1 MG/ML 2ML VIAL ONE (16:40)
[2020-09-28] MEDS ORDERED: niCARdipine HCL INJ 2.5 MG/ML 10 ML AMP ONE (16:40)
[2020-09-28] MEDS ORDERED: NITROGLYCERIN/D5W 100MCG/ML 20ML SYR ONE (16:42)
--- NOTE | 2020-09-28 17:19 | Pre Anesthesia Assessment ---
Date of Service September 28, 2020 Pre Sedation Assessment Vital Signs Temp Pulse Resp BP Pulse Ox 09/28/20 17:00 84 19 09/28/20 16:50 81 19 09/28/20 16:46 80 134/71 09/28/20 16:40 74 22 99 09/28/20 16:31 73 15 98 09/28/20 16:30 68 12 121/73 99 09/28/20 16:22 69 17 122/70 99 09/28/20 16:20 71 15 99 09/28/20 16:10 71 13 97 09/28/20 16:02 72 20 127/92 99 09/28/20 16:00 75 26 H 09/28/20 15:50 70 09/28/20 15:48 71 18 135/76 100 09/28/20 15:40 68 24 99 09/28/20 15:31 62 20 98 09/28/20 15:30 63 13 130/74 99 09/28/20 15:20 67 25 H 90 09/28/20 15:10 64 25 H 96 09/28/20 15:01 64 14 98 09/28/20 15:00 70 17 120/62 99 09/28/20 14:10 72 16 98 09/28/20 14:00 72 16 97 09/28/20 13:50 73 16 09/28/20 13:40 77 23 95 09/28/20 13:30 80 21 95 09/28/20 13:28 79 18 95 09/28/20 13:26 98.6 F 82 18 113/61 97 09/28/20 13:23 81 20 113/61 97 Cardiovascular RRR, no murmur, no edema Respiratory normal respiratory effort, lungs clear to auscultation Pre-Sedation Airway Assessment Smoking Status: Never smoker Hx Sleep Apnea: No Hx Difficult Intubation: No Short, Thick Neck: No Thyromental Distance: > or= 3.5 Finger Breadths Oral Cavity: + WNL Mallampati Class: III ASA: ASA3 Procedure Planning Contraindications for Sedation: none Current Medications Reviewed: Yes Notes The planned sedation has been discussed with the patient. Informed Consent was obtained. I have identified the patient, determined the appropriateness of sedation and have assessed the patient immediately prior to the procedure. All medicine(s) and interventions are by my order.
--- NOTE | 2020-09-28 17:42 | Post Anesthesia Assessment ---
Date of Service September 28, 2020 Post Sedation Assessment Vital Signs Temp Pulse Resp BP Pulse Ox 09/28/20 17:00 84 19 09/28/20 16:50 81 19 09/28/20 16:46 80 134/71 09/28/20 16:40 74 22 99 09/28/20 16:31 73 15 98 09/28/20 16:30 68 12 121/73 99 09/28/20 16:22 69 17 122/70 99 09/28/20 16:20 71 15 99 09/28/20 16:10 71 13 97 09/28/20 16:02 72 20 127/92 99 09/28/20 16:00 75 26 H 09/28/20 15:50 70 09/28/20 15:48 71 18 135/76 100 09/28/20 15:40 68 24 99 09/28/20 15:31 62 20 98 09/28/20 15:30 63 13 130/74 99 09/28/20 15:20 67 25 H 90 09/28/20 15:10 64 25 H 96 09/28/20 15:01 64 14 98 09/28/20 15:00 70 17 120/62 99 09/28/20 14:10 72 16 98 09/28/20 14:00 72 16 97 09/28/20 13:50 73 16 09/28/20 13:40 77 23 95 09/28/20 13:30 80 21 95 09/28/20 13:28 79 18 95 09/28/20 13:26 98.6 F 82 18 113/61 97 09/28/20 13:23 81 20 113/61 97 Recovery Score Activity: Moves 4 extremities Respiration: Deep Breath/Cough Circulation: +/-20% PreAnes Value Consciousness: Fully Awake Oxygen Saturation: O2 needed for >90% Discharge Sedation Level of Care: Fast Track Phase II Post Sedation Plan On clinical assessment, the patient appears to have tolerated the sedation without complications. Patient is recovering as anticipated. Patient will continue to be monitored by nursing and may be discharged when sedation discharge criteria are met per below protocol. Upon Completions of procedure up to 15 minutes continue every 5 minute vital signs and the P.A.R. score; then discharge to a Phase I or Fast Track to Phase II per the following guidelines: * Discharge Patient to appropriate Phase II area if PAR is 8 or greater or return to pre- procedure baseline. The post - procedure orders will be as directed. * If PAR score is less than 8 or not return to pre-procedure baseline then patient will follow Phase I monitoring till PAR is reached for Phase II. The Phase I may be done in procedure room or may call to secure a Phase I area. * If naloxone or flumazenil are used for reversal, hold in Phase I for continued monitoring from when last reversal dose was given for a minimum of 60 minutes or longer pending the nurse and/or physician discretion of patient condition before discharge to Phase II. Please call the Sedation Physician to re-evaluate and complete post-note for discharge to Phase II area. Do NOT discharge from procedure sedation or Phase 1 until post- sedation evaluation note is complete by procedure /sedation MD Sedation Discharge Instructions to be given to the patient at discharge to home.
--- NOTE | 2020-09-28 17:54 | Cardiac Catheterization ---
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 Cardiac Status Clinical evaluation leading to the procedure CAD Presenation: Unstable angina Anginal Classification: CCS IV Heart Failure: No Cardiogenic Shock within 24 Hours: No Cardiac Arrest within 24 Hours: No Imaging Studies Past 6 Months: No Stress Studies Past 6 Months: No Diagnostic Physicians Name: Alex Melton MD Status: Elective Closure Device Percutaneous Entry Location: Radial Closure Device: Radial Band Recommendations: Medical Therapy and/or Counseling Intraprocedure Events Significant Disection: No Perforation: No Cardiac Cath Procedure Full Procedure Date September 28, 2020 Pre-Procedure Diagnosis Pre-Procedure Diagnosis: Angina AUC Score AUC Score: 7 Post-Procedure Diagnosis Post-Procedure Diagnosis: Moderate CAD and Normal Intracardiac Pressures Procedure(s) Performed Procedure(s) Performed: Coronary Angiography and Left Heart Cath Wheel Installer Alex Melton MD Metal Spraying Machine Operator(s) Branden Estimated Blood Loss Estimated Blood Loss: < 5 Medication(s) Medication(s): Fentanyl, Heparin, Lidocaine 1%, Nicardipine, Nitroglycerin and Versed Summary of Findings Indication: Concern for unstable angina. History of of anterior NH with prior proximal LAD stent Access: 6 Fr right radial artery Catheters: [place] Findings: LM -Short, no significant disease LAD -medium caliber, widely patent proximal stent without significant in-stent restenosis. Gives off 3 diagonals with mild disease. Distal vessel with luminal irregularities and sluggish flow as wraps around apex. Circumflex -nondominant, medium caliber, 20% ostial, gives off a large bifurcating OM1 with 50% proximal disease. Small AV groove circumflex without significant disease. RCA -dominant, large caliber, 20 to 30% proximal, 30% mid, distal luminal regularities, 40% ostial right PDA. Right PLB without significant disease LVEDP -12 Arterial Closure: TR band Summary: 1. Moderate nonobstructive coronary artery disease -Widely patent proximal LAD stent without significant ISR 50% proximal OM1 30% mid RCA, 40% ostial right PDA 2. Normal intracardiac filling pressure Recommendations: Additional evaluation for noncardiac causes of chest pain per primary team Continued ASCVD risk factor modification Hemodynamics Rest Ao:: 107/59/79 Final Ao: 94/54/72 LV: 101/12 Recommendations Recommendations: Medical Therapy and/or Counseling Specimens Specimens: None Radiation Exposure (mGy) 1015 Contrast (mls) 40 Fluids (cc crystalloids) Fluids (cc crystalloids): 50 Drains Drains: None Anesthesia Moderate [id number] Procedural Complication(s) None Disposition PCU I attest to the content of the Intraoperative Record and any orders documented therein. Any exceptions are noted below. [facility] Card Cath Procedure Codes Cardiac Catheterization Procedure 1: Cardiovascular Cath Procedures: 49914 Coronaries and LHC (+/-LV) Moderate Sedation Procedure 1: Sedation/Anesthesia: 01090 Mod Sedation by the same physician;Init15 Min Child Age 5 & Up PG Care Time/CCT Total # of Minutes Spent Total Time Spent with Patient: Total time spent is greater than 50% in coordination of care (as documented) at patient's floor/unit and/or counseling patient:
[2020-09-28] MEDS ORDERED: SODIUM CHLORIDE 0.9% 1000ML 1,000 ML IV SCH (18:00)
[2020-09-28] MEDS ORDERED: ONDANSETRON INJ 2 MG/ML 2 ML VIAL IV PRN (18:28)
[2020-09-28] MEDS ORDERED: POLYETHYLENE (MIRALAX) 17 GM PACK PO PRN (18:28)
[2020-09-28] MEDS ORDERED: DICLOFENAC SOD 1% GEL 100 GM TUBE EXT PRN (18:28)
[2020-09-28] MEDS ORDERED: NITROGLYCERIN SL 0.4 MG/TAB TAB SL PRN (18:28)
--- NOTE | 2020-09-28 19:40 | XRay Report ---
XR shoulder LT min 2V routine CLINICAL HISTORY: left shoulder pain COMPARISON: June 18, 2019 DISCUSSION: No acute fracture or dislocation seen. No blastic or lytic lesions demonstrated. Degenerative changes of the acromioclavicular joint are again seen. IMPRESSION: No acute fracture or dislocation. ACT 112: Negative or not required by law. The above report was generated using voice recognition software. It may contain grammatical, syntax o r spelling errors. Electronically signed by: Norma Castorena DO 09/28/2020 7:39 PM
--- NOTE | 2020-09-28 19:44 | XRay Report ---
CERVICAL SPINE 5 VIEWS HISTORY: left arm pain; eval DJD c-spine COMPARISON: None. FINDINGS: The cervical spine is visualized from C1 through the inferior endplate of C5. There is no f racture. No subluxation. Visualized intervertebral disc spaces are preserved. Few osteophytes are seen representing degenerati ve process. Prevertebral soft tissues and the atlantodens interval are intact. IMPRESSION: No fracture or subluxation within the cervical spine. Mild degenerative changes. Limited exam. ACT 112: Negative or not required by law. Electronically signed by: Norma Castorena DO 09/28/2020 7:43 PM
[2020-09-28] MEDS: ASPIRIN 81 MG ECTAB PO SCH (20:25)
[2020-09-28] MEDS: METOPROLOL TARTRATE 50 MG TAB PO SCH (20:26)
[2020-09-28] MEDS: CYCLOBENZAPRINE HCL 10 MG TAB PO SCH (20:26)
[2020-09-28] MEDS: PANTOprazole 40 MG TAB PO SCH (20:27)
[2020-09-28] MEDS ORDERED: amLODIPine BESYLATE 5 MG TAB PO SCH (21:00)
[2020-09-28] MEDS ORDERED: FAMOTIDINE 20 MG TAB PO SCH (21:00)
[2020-09-28] MEDS: ACETAMINOPHEN W/CODEINE #3 1 TAB PO PRN (23:28)
--- NOTE | 2020-09-28 23:32 | Cardiology Consultation ---
Date of Consultation September 28, 2020 Assessment & Plan (1) Chest pain: Patient here with acute onset chest/left axilla/left arm pain. Patient adamant that symptoms reminiscent of his prior anterior AL. Initial ECG/troponin unremarkable. Prior coronary anatomy remarkable for ostial LAD stent along with nonobstructive circumflex disease 10+ years ago. Patient continues to have ongoing chest symptoms. Overall suspicion for unstable angina/ACS is elevated and will plan to proceed with cardiac catheterization to rule out high risk disease. No apparent contraindications to procedure. Discussed risks, benefits, alternatives of procedure with patient and they are willing to proceed. Further recommendations pending findings of coronary angiography. History of Present Illness Attending Physician: Alex Melton MD History of Present Illness 65-year-old man seen in the emergency department for persistent chest pain reminiscent of symptoms with prior AL. He is followed by Dr. Gray for his cardiac care. Past cardiac history remarkable for Anterior AL complicated by VF arrest treated with primary PCI to ostial LAD (3.5 x 20 mm bare-metal stent postdilated to 3.75) 08/20. Residual ischemic cardiomyopathy EF 40 to 45% (02/2019) and questionable chronic apical thrombus. Other medical issues include hypertension, hyperlipidemia, recurrent small bowel obstruction, GERD, chronic back pain. Today acutely developed left shoulder/arm pain reminiscent of of prior AL. Presented to Dr. Gray's office where received nitro with partial relief of symptoms and was transferred to ED via EMS. In ED hemodynamically stable. Continued to have chest/axillary/arm pain despite additional nitro, Nitropaste. Serial ECGs in ED showed sinus rhythm with no dynamic ST changes. Initial troponin negative. Allergies Allergy/AdvReac Type Severity Reaction Status Date / Time bee venom protein (honey bee) Allergy Severe Anaphylaxis Verified 09/28/20 14:40 adhesive Allergy Intermediate REDDENED, Verified 09/28/20 14:40 ITCHY, IRRITATED SKIN-WITH WHITE TAPE strawberry Allergy Mild Rash, Verified 09/28/20 14:40 MIGRAINES-FEELS LIKE THE FLU celecoxib [From Celebrex] AdvReac Intermediate NAUSEA, Verified 09/28/20 14:40 HEADACHE, CHEST FELT TIGHT ezetimibe [From Zetia] AdvReac Intermediate MJUSCLE Verified 09/28/20 14:40 ACHES onion AdvReac Mild Nausea,MIGRAINES-FELT Verified 09/28/20 14:40 LIKE THE FLU Home Medications Medication Instructions Recorded Confirmed Type cyclobenzaprine 10 mg PO TID 02/09/18 09/28/20 History pantoprazole 40 mg PO BID 02/09/18 09/28/20 History amlodipine 2.5 mg PO QPM 05/12/18 09/28/20 History acetaminophen-codeine 1 tab PO TID PRN 01/13/20 09/28/20 History [Tylenol-Codeine #3] aspirin [Aspir-81] 81 mg PO BID 01/13/20 09/28/20 History famotidine 20 mg PO QPM 01/13/20 09/28/20 History metoprolol tartrate 50 mg PO BID 01/13/20 09/28/20 History polyethylene glycol 3350 [Miralax] 17 g PO DAILY PRN 01/13/20 09/28/20 History lorazepam [Ativan] 0.5 mg PO DAILY #6 tab 01/14/20 09/28/20 Rx ondansetron HCl [Zofran] 4 mg PO Q6H PRN #6 tab 01/14/20 09/28/20 Rx diclofenac sodium 2 g TOPICAL QID PRN 09/28/20 09/28/20 History Patient History Medical History (Updated 09/28/20 @ 23:05 by Bobby Nino) CAD (coronary artery disease) s/p stent 2008. Chronic back pain Essential hypertension GERD (gastroesophageal reflux disease) History of claustrophobia SEVERE PER PT Ischemic cardiomyopathy EF 40-45% per 02/2019 echo Left ventricular apical thrombus Chronic, Dr Gray monitoring. Myocardial infarction 2008, with cardiac arrest x 2. F/U DR GRAY Numbness and tingling of both feet Ruptured disc, thoracic Ruptured lumbar disc SBO (small bowel obstruction) Small bowel obstruction Vertigo Surgical History History of appendectomy History of cardiac cath 2008 WITH AL 1 STENT PLACED AND 02/2019-[facility] History of colonoscopy History of esophagogastroduodenoscopy (EGD) History of heart artery stent Family History (Updated 09/28/20 @ 16:16 by Bobby Nino) Father Myocardial infarction Valvular heart disease Daughter Family history of diabetes mellitus Mother Breast cancer Myocardial infarction Social History (Updated 09/28/20 @ 16:16 by Bobby Nino) Smoking Status: Never smoker Second Hand Exposure: Yes (FRIENDS SMOKED); Hx Alcohol Use: No Hx Substance Use: No Preferred Language: Ivorian Communication Ability: Effective Ergonomic Specialist Required: No Beliefs That Will Affect Care: None marital status: Current Living Situation: Alone Current Living Situation Comment: ex-, 2 children, step-child current occupational status: retired How many Children do You have: 2 Other Information That Helps Us 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 2+ radial pulses Skin: No rashes or lesions. Neuro: Nonfocal Psych: Alert orient x3, normal affect and mood Results & Data ([facility]) Vital Signs (Past 12 Hours) Vital Signs Temp Pulse Pulse Resp BP BP Pulse Ox 09/28/20 21:40 67 09/28/20 20:08 97.7 F 73 19 115/53 L 100 09/28/20 18:40 98.1 F 65 18 105/65 97 09/28/20 18:28 98.2 F 68 18 110/87 96 09/28/20 18:25 98.2 F 65 18 110/65 96 09/28/20 18:10 97.7 F 67 20 107/68 96 09/28/20 18:06 97.7 F 67 20 107/68 96 09/28/20 17:55 97.7 F 20 107/68 96 09/28/20 17:00 84 19 09/28/20 16:50 81 19 09/28/20 16:46 80 134/71 09/28/20 16:40 74 22 99 09/28/20 16:31 73 15 98 09/28/20 16:30 68 12 121/73 99 09/28/20 16:22 69 17 122/70 99 09/28/20 16:20 71 15 99 09/28/20 16:10 71 13 97 09/28/20 16:02 72 20 127/92 99 09/28/20 16:00 75 26 H 09/28/20 15:50 70 09/28/20 15:48 71 18 135/76 100 09/28/20 15:40 68 24 99 09/28/20 15:31 62 20 98 09/28/20 15:30 63 13 130/74 99 09/28/20 15:20 67 25 H 90 09/28/20 15:10 64 25 H 96 09/28/20 15:01 64 14 98 09/28/20 15:00 70 17 120/62 99 09/28/20 14:10 72 16 98 09/28/20 14:00 72 16 97 09/28/20 13:50 73 16 09/28/20 13:40 77 23 95 09/28/20 13:30 80 21 95 09/28/20 13:28 79 18 95 09/28/20 13:26 98.6 F 82 18 113/61 97 09/28/20 13:23 81 20 113/61 97 PG Care Time/CCT Total # of Minutes Spent Total Time Spent with Patient: Total time spent is greater than 50% in coordination of care (as documented) at patient's floor/unit and/or counseling patient: Coding Level of Care Code 80624 Initial Inpt Care Lvl 3 Diagnoses Chest pain R07.9 Chest pain type: unspecified (1) Chest pain Chest pain type: unspecified Qualified Code(s): R07.9 - Chest pain, unspecified
[2020-09-29] MEDS: ACETAMINOPHEN W/CODEINE #3 1 TAB PO PRN ×3 (04:52→12:22)
[2020-09-29 08:09] LABS: BUN Creatinine Ratio 19.5 (10-20); Calcium 8.9 mg/dl (8.5-10.1); Creatinine Clr Calc Pharmacy 71.2 ml/min; Est GFR (African American) 72.2 ml/min; Est GFR (Non-African American) 62.3 ml/min
--- NOTE | 2020-09-29 08:10 | Cardiology Consultation ---
Date of Consultation September 29, 2020 Assessment & Plan (1) Chest pain: Impressions: 1. Chest pain status post cardiac catheterization showing moderate nonobstructive CAD. Widely patent proximal LAD stent, 50% proximal OM1, 30% mid RCA, 40% ostial right PDA. 2. History of ST elevation myocardial infarction in August 2008 with total occlusion of the proximal LAD and placement of bare-metal stent. Cardiac arrest x2 at the time of his heart attack. Cardiac catheterization 08/2008 with a total occlusion of the LAD, ostial 25% lesion involving OM1, luminal alert irregularities involving the RCA. 3. Hyperlipidemia. 4. Hypertension. 5. GERD 6. Vertigo 7. Intolerant of simvastatin, pravastatin and Zetia Mr. uDdley's chest pain does not appear to be due to CAD. He is no longer having any symptoms. He should continue with his statin, aspirin, and metoprolol. He is describing orthostatic symptoms and I will have him get a set of orthostatic blood pressures today. If his symptoms stem from variant angina or vasospasm he probably would not be able to tolerate any further amlodipine or the addition of isosorbide. Depending on if his orthostatics are positive we could consider dialing back his metoprolol but with his complaints of palpitations I will await the results of his orthostatics before doing so. He continues to describe palpitations. We will have him set up with an event monitor at the office after his discharge. He has an echo pending for today. He is not having any symptoms of heart failure. Labs are pending for today including lipid panel. His troponin was negative. He had lipids drawn 6 weeks ago which showed LDL at goal at 69 and an HDL of 43. From a cardiac standpoint he does not need further workup and can be discharged when ok with the hospitalists History of Present Illness Attending Physician: Alex Melton MD History of Present Illness Mr. Dudley presented to the emergency department for chest pain similar to what he had experienced with his past SD. He said it began around his left scapula and went through to his left chest and down his left arm. His EKG was without ischemic changes and troponin was negative. He was taken for cardiac catheterization which showed moderate nonobstructive coronary artery disease. He had a widely patent proximal LAD stent, 50% proximal OM1, 30% mid RCA, 40% ostial right PDA. Today he is feeling well. No further chest pain. He does describe what sounds like orthostasis where if he is bending over too long and he stands back up he will get tunnel vision and shortness of breath and at times has to lay down for it to resolve. He does have a history of vertigo and that is bothering him as well with positional changes and head movements. He additionally is having palpitations although he is unable to describe them further. This has been an ongoing issue in the office. There were no events on the monitor and he is in a normal sinus rhythm. Allergies Allergy/AdvReac Type Severity Reaction Status Date / Time bee venom protein (honey bee) Allergy Severe Anaphylaxis Verified 09/28/20 14:40 adhesive Allergy Intermediate REDDENED, Verified 09/28/20 14:40 ITCHY, IRRITATED SKIN-WITH WHITE TAPE strawberry Allergy Mild Rash, Verified 09/28/20 14:40 MIGRAINES-FEELS LIKE THE FLU celecoxib [From Celebrex] AdvReac Intermediate NAUSEA, Verified 09/28/20 14:40 HEADACHE, CHEST FELT TIGHT ezetimibe [From Zetia] AdvReac Intermediate MJUSCLE Verified 09/28/20 14:40 ACHES onion AdvReac Mild Nausea,MIGRAINES-FELT Verified 09/28/20 14:40 LIKE THE FLU Home Medications Medication Instructions Recorded Confirmed Type cyclobenzaprine 10 mg PO TID 02/09/18 09/28/20 History pantoprazole 40 mg PO BID 02/09/18 09/28/20 History amlodipine 2.5 mg PO QPM 05/12/18 09/28/20 History acetaminophen-codeine 1 tab PO TID PRN 01/13/20 09/28/20 History [Tylenol-Codeine #3] aspirin [Aspir-81] 81 mg PO BID 01/13/20 09/28/20 History famotidine 20 mg PO QPM 01/13/20 09/28/20 History metoprolol tartrate 50 mg PO BID 01/13/20 09/28/20 History polyethylene glycol 3350 [Miralax] 17 g PO DAILY PRN 01/13/20 09/28/20 History lorazepam [Ativan] 0.5 mg PO DAILY #6 tab 01/14/20 09/28/20 Rx ondansetron HCl [Zofran] 4 mg PO Q6H PRN #6 tab 01/14/20 09/28/20 Rx diclofenac sodium 2 g TOPICAL QID PRN 09/28/20 09/28/20 History Patient History Medical History CAD (coronary artery disease) s/p stent 2008. Chronic back pain Essential hypertension GERD (gastroesophageal reflux disease) History of claustrophobia SEVERE PER PT Ischemic cardiomyopathy EF 40-45% per 02/2019 echo Left ventricular apical thrombus Chronic, Dr Zelaya monitoring. Myocardial infarction 2008, with cardiac arrest x 2. F/U DR ZELAYA Numbness and tingling of both feet Ruptured disc, thoracic Ruptured lumbar disc SBO (small bowel obstruction) Small bowel obstruction Vertigo Surgical History History of appendectomy History of cardiac cath 2008 WITH SD 1 STENT PLACED AND 02/2019[facility] History of colonoscopy History of esophagogastroduodenoscopy (EGD) History of heart artery stent Family History Father Myocardial infarction Valvular heart disease Daughter Family history of diabetes mellitus Mother Breast cancer Myocardial infarction Social History Smoking Status: Never smoker Second Hand Exposure: Yes (FRIENDS SMOKED); Hx Alcohol Use: No Hx Substance Use: No Preferred Language: Qatari Communication Ability: Effective Bomb Loader Required: No Beliefs That Will Affect Care: None marital status: Current Living Situation: Alone Current Living Situation Comment: ex-, 2 children, step-child current occupational status: retired How many Children do You have: 2 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 Feels Safe at Home: Yes Safety Concerns: Feels Safe At This Time Assistive Devices: None Review of Systems Review of Systems: All systems reviewed & are unremarkable except as noted in HPI & below Physical Exam Constitutional: WD/WN, vitals as above Respiratory: normal respiratory effort, lungs clear to auscultation Cardiovascular: RRR, no murmur, no edema Musculoskeletal: no cyanosis or clubbing, extremities motor strength 5/5 Skin: no rashes, warm and dry Neurologic: moves all extremities and awake Psychiatric: A+Ox3, euthymic affect Results & Data ([facility]) Vital Signs (Past 12 Hours) Vital Signs Temp Pulse Pulse Resp BP Pulse Ox 09/29/20 07:13 36.7 C 75 20 131/75 99 09/29/20 04:23 37.0 C 76 18 104/69 97 09/28/20 23:48 36.6 C 62 17 110/67 96 09/28/20 21:40 67 09/28/20 20:08 36.5 C 73 19 115/53 L 100 (1) Chest pain Chest pain type: unspecified Qualified Code(s): R07.9 - Chest pain, unspecified
[2020-09-29] MEDS: PANTOprazole 40 MG TAB PO SCH (08:13)
[2020-09-29] MEDS: METOPROLOL TARTRATE 50 MG TAB PO SCH (08:13)
[2020-09-29] MEDS: ASPIRIN 81 MG ECTAB PO SCH (08:14)
[2020-09-29] MEDS: CYCLOBENZAPRINE HCL 10 MG TAB PO SCH ×2 (08:14→13:16)
[2020-09-29] MEDS ORDERED: ROSUVASTATIN CALCIUM 5 MG TAB PO SCH (09:00)
[2020-09-29] MEDS ORDERED: LORazepam 0.5 MG TAB PO SCH (09:00)
--- NOTE | 2020-09-29 15:16 | Discharge Summary ---
Date of Service September 29, 2020 Admission HPI Per Admitting Provider 65yo male with known CAD, s/p STEMI in 2008 with bare metal stent, cardiac arrest in the midst of his AMI, chronic systolic CHF EF 40-45% 2nd ischemic cardiomyopathy, GERD, and HTN presents with left shoulder, left arm, left axillary, and left chest pain beginning earlier today. Patient was at the [facility] with his daughter and was waiting in his car for her when he acutely developed left shoulder and left arm pain. This persisted, and he ultimately developed left chest pain. He drove himself to Dr Zelaya's office, and while there had nitroglycerin and EKG. The nitro helped his pain. EMS was summoned, and en route to [facility] he had 2-3 more SL nitros which helped his pain further. Pain at its peak earlier today was "7.5". Since arrival the pain has improved but has not fully resolved. He states he continues to have pain just inferior to the left scapula, "about 3-4." He also continues with pain in the left axillary region, about a "1." During my visit I ordered 1" of nitropaste and despite such he had minimal relief of symptoms. He had taken his daily aspirin at home this am. Denies any dyspnea at rest, nausea, emesis, diaphoresis, jaw/neck pain. Patient reports that today's symptoms are VERY SIMILAR to his pain he had in 2008 during his acute [place]. Has had orthostatic type symptoms chronically and had an episode 2 days ago while working outside. During that spell he felt very weak and fatigued; had to lay down in his home for 45 minutes before the symptoms resolved. No chest pain during that spell. Saw Dr Zelaya 1-2 months ago. Apparently was wheezing. Inhaler begun (s ymbicort?) but later stopped due to development of hoarse voice. His hoarse voice has persisted despite being off the inhaler. Does endorse chronic ADEN but no change in such over the last few years. He has been having troubles with his neck recently - pain with movement. He also has had heartburn for which he takes PPI bid. Finally, admits to anxiety. He is living with his ex-, his 2 children, and a step-daughter which is stress-provoking for him. Principal Diagnosis Left sided chest pain-noncardiac Discharge Exam Constitutional WD/WN, vitals as above Eyes + anicteric sclerae Neck trachea midline, no thyromegaly (+TTP over left trapezius) Respiratory normal respiratory effort, lungs clear to auscultation Cardiovascular RRR, no murmur, no edema Chest (Breasts) Chest: normal inspection of chest Gastrointestinal (Abdomen) normal bowel sounds, soft, nontender, no hepatosplenomegaly Musculoskeletal Extremities: extremities normal to inspection; no cyanosis and no clubbing Skin no rashes, warm and dry Neurologic moves all extremities and awake; no focal motor deficits no TTP over left shoulder or UE,axilla Psychiatric A+Ox3, euthymic affect Lymphatic no lymphedema Discharge Data Allergies Allergy/AdvReac Type Severity Reaction Status Date / Time bee venom protein (honey bee) Allergy Severe Anaphylaxis Verified 09/28/20 14:40 adhesive Allergy Intermediate REDDENED, Verified 09/28/20 14:40 ITCHY, IRRITATED SKIN-WITH WHITE TAPE strawberry Allergy Mild Rash, Verified 09/28/20 14:40 MIGRAINES-FEELS LIKE THE FLU celecoxib [From Celebrex] AdvReac Intermediate NAUSEA, Verified 09/28/20 14:40 HEADACHE, CHEST FELT TIGHT ezetimibe [From Zetia] AdvReac Intermediate MJUSCLE Verified 09/28/20 14:40 ACHES onion AdvReac Mild Nausea,MIGRAINES-FELT Verified 09/28/20 14:40 LIKE THE FLU Consultations 09/28/20 15:00 ED Decision to Admit Stat 09/28/20 18:28 Consult Cardiology Routine Procedures Performed Operation Date: 09/28/20 16:45 Actual Procedures p Cath, Left with Cors and Vent - Rell Melton MD s Cineradiography w/Routine Exam - Rell Melton MD Ordered Studies 09/28/20 16:44 CL Cath Imgs for PACS use only Stat Chest X-Ray 09/28/20 13:36 XR chest 1V portable HISTORY: Atypical Chest Pain COMPARISON: Chest 07/24/2019. FINDINGS: The lungs are clear. Cardiac silhouette is normal in size. No pleural effusions. No pneumothorax. IMPRESSION: No acute process. ACT 112: Negative or not required by law. Electronically signed by: Ignacio Santos M.D. 09/28/2020 2:03 PM Cervical Spine X-Ray 09/28/20 18:28 CERVICAL SPINE 5 VIEWS HISTORY: left arm pain; eval DJD c-spine COMPARISON: None. FINDINGS: The cervical spine is visualized from C1 through the inferior endplate of C5. There is no fracture. No subluxation. Visualized intervertebral disc spaces are preserved. Few osteophytes are seen representing degenerative process. Prevertebral soft tissues and the atlantodens interval are intact. IMPRESSION: No fracture or subluxation within the cervical spine. Mild degenerative changes. Limited exam. ACT 112: Negative or not required by law. Electronically signed by: Norma Castorena DO 09/28/2020 7:43 PM Shoulder X-Ray 09/28/20 18:28 XR shoulder LT min 2V routine CLINICAL HISTORY: left shoulder pain COMPARISON: June 18, 2019 DISCUSSION: No acute fracture or dislocation seen. No blastic or lytic lesions demonstrated. Degenerative changes of the acromioclavicular joint are again seen. IMPRESSION: No acute fracture or dislocation. ACT 112: Negative or not required by law. The above report was generated using voice recognition software. It may contain grammatical, syntax or spelling errors. Electronically signed by: Norma Castorena DO 09/28/2020 7:39 PM ECHO-LVEF 55%, small apical thrombus, moderate LA dilation, +WMA Hospital Course (1) Chest pain: presenting chest and arm symptoms are similar to his STEMI in 2009. Despite nitro SL (3-4 tablets), nitropaste, oxycodone, and morphine he continued with left axillary pain and left inferior scapular pain, 3-4/10 on pain scale. EKG without ischemic changes and initial troponin was negative. Given the refractoriness of his symptoms, the similarity of his pain to his [place] pain in 2009, he had urgent heart cath to rule out CAD as the cause of his presentation. Cath without obstruction, no intervention performed and recommended workup fo rnoncardiac causes of chest pain -pain now resolved since admission Seems neuropathic in nature-no shingles present on exam. COuld be from left sided cervical radiculopathy. Strenght and sensation intact but does have left sided trapezius pain and spasm Recommend voltaren gel, stretching, and f/u with PCP (2) Dizziness: with changes in position. Orthostatics negative here Ongoing for months no changes ot medications here f/u with PCP (3) CAD (coronary artery disease): s/p cardiac cath-no obstruction Continue asa, beta geri. continue Crestor (4) Ischemic cardiomyopathy: Previous echo (in the [facility] record) showed EF 40-45%. ECHO here with normal EF, +WMAs apical thrombus here but Dr. Nolasco advised it was there prior as per reports and is likely old Continue beta geri. (5) Essential hypertension: Controlled since presentation. Continue amlodipine and metoprolol. (6) Chronic back pain: It appears he takes tylenol w/ codeine prn for this along with flexeril. No low back pain complaints today. (7) Hyperlipidemia: Crestor 5mg daily was prescribed on 06/12/[address] Zelaya per the med rec history function. (8) GERD (gastroesophageal reflux disease): continue PPI (9) Neck pain: Check c-spine films given his musculoskeletal complaint-mild degen disease (10) Shoulder pain: LEFT. plain x-rays negative suspect C-spine radiculopathy as above (11) Left ventricular apical thrombus: per records, but not on anticogulation for such. confirmed here again on ECHO and is old no need for AC (12) Anxiety: if cath does not show occlusive disease perhaps anxiety is playing a role. he was very anxious during the visit and mentioned that he has a very challenging home life. ativan prn as per home dosing. (13) DVT prophylaxis: None needed, short stay Dispo-dc to home Total Time Total Time Spent Total Time Spent (In Minutes): 35 min Total Time Includes: Examination of the Patient, Discharge Planning and Medication Reconciliation Discharge Plan Discharge Items Patient Disposition: Home - Self-Care Reason For Visit: CHEST PAIN Discharge Diagnosis: Chest pain-noncardiac, Suspected pinched nerve in neck Condition on Discharge: Good Activity: As commented below Lifting: Gradually increase as tolerated Bathing: No limitations Exercise/Sports: Gradually increase as tolerated Non-emergency contact: Primary Care Provider Call non-emergency contact if: you have any medication questions and your symptoms worsen Follow-up/Referrals: Williams Zelaya, [Physician] - (Follow up next week as scheduled to place your teletypesetter monitor. Dr Mcnamara office will call you to set this apt up.) WoAkiko albert PA-C [Primary Care Provider] - 10/05/20 3:30 pm (Follow up within 1-2 weeks.) Diet: Heart Healthy Addtl Attending Provider Instructions: You were admitted for chest pain and had a cardiac catheterization that ruled out a heart attack. Your pain improved and was likely due to nerve pain from a pinched nerve in the neck. Please follow up with your PCP within 1-2 weeks. Please continue close follow up with Dr. Zelaya as scheduled to have your heart monitor placed for ongoing palpitations and lightheadedness. Pending Studies at Discharge: No Stand-Alone Forms: My [facility] Medications and DC Order Prescriptions: Continued cyclobenzaprine 10 mg Tablet 10 mg PO TID RF: 0 pantoprazole 40 mg Tablet,Delayed Release (Dr/Ec) 40 mg PO BID RF: 0 aspirin 81 mg Tablet,Delayed Release (Dr/Ec) 81 mg PO BID RF: 0 famotidine 20 mg Tablet 20 mg PO QPM RF: 0 metoprolol tartrate 50 mg Tablet 50 mg PO BID RF: 0 acetaminophen-codeine 300-30 mg Tablet 1 tab PO TID PRN (Reason: Pain) RF: 0 amlodipine 2.5 mg tablet 2.5 mg PO QPM RF: 0 polyethylene glycol 3350 [Miralax] 17 gram Powder In Packet 17 g PO DAILY PRN (Reason: Constipation) RF: 0 ondansetron HCl [Zofran] 4 mg tablet 4 mg PO Q6H PRN (Reason: nausea and vomiting) Qty: 6 RF: 0 lorazepam [Ativan] 1 mg tablet 0.5 mg PO DAILY Qty: 6 RF: 0 diclofenac sodium 1 % gel 2 g TOPICAL QID PRN (Reason: Pain) RF: 0 Discharge Orders: Discharge Order (Routine); Ordered 09/29/20 Ordered By: Marah Oh Admission Data Admit Date/Time: 09/28/20 18:23 Attending Provider: Marah Oh Admit Provider: Bobby Nino Primary Care Provider: Akiko Decker Other Providers: Rell Melton ; Deidra Mccartney Other Interventions: Discharge Summary Assessment (RN) Last Done: 09/29/20 15:58 Coding Level of Care Code 36723 OBS Care - Discharge Diagnoses Chest pain R07.9 Chest pain type: unspecified Dizziness R42 CAD (coronary artery disease) I25.10 Ischemic cardiomyopathy I25.5 Essential hypertension I10 Chronic back pain M54.9; G89.29 Back pain laterality: unspecified Back pain location: back pain in unspecified location Hyperlipidemia E78.5 GERD (gastroesophageal reflux disease) K21.9 Neck pain M54.2 Shoulder pain M25.519 Left ventricular apical thrombus I51.3 Anxiety F41.9 DVT prophylaxis Z29.9
--- NOTE | 2020-09-29 15:54 | XCELERA ---
[id number]
--- NOTE | 2020-09-29 16:51 | Electrocardiogram Report ---
Test Reason : Blood Pressure : / mmHG Vent. Rate : 070 BPM Atrial Rate : 070 BPM P-R Int : 186 ms QRS Dur : 086 ms QT Int : 374 ms P-R-T Axes : 024 -10 080 degrees QTc Int : 403 ms Normal sinus rhythm Poor R wave progression, consider anterior [place] vs. lead placement vs. LVH Abnormal ECG When compared with ECG of 28-SEP-2020 13:23, No significant change was found Confirmed by Alex Nolasco ([id number]) on 09/29/2020 4:50:46 PM Referred By: REFERRED SELF Confirmed By:Micheal Nolasco
== END 2020-09-29 17:27 | disposition home or self-care (01) ==
LOC: ED 13:16 → CC 17:07 → 2S 17:07 → SUATTDRO 18:23
DX: K21.9 Gastro-esophageal reflux disease without esophagitis; I51.3 Intracardiac thrombosis, not elsewhere classified; M25.512 Pain in left shoulder; I25.5 Ischemic cardiomyopathy; E78.5 Hyperlipidemia, unspecified; Z91.030 Bee allergy status; Z79.899 Other long term (current) drug therapy; Z79.82 Long term (current) use of aspirin; I25.119 Atherosclerotic heart disease of native coronary artery with unspecified angina pectoris; R42 Dizziness and giddiness; I50.22 Chronic systolic (congestive) heart failure; G89.29 Other chronic pain; I11.0 Hypertensive heart disease with heart failure; Z91.018 Allergy to other foods; M54.2 Cervicalgia; I25.2 Old myocardial infarction

== ENCOUNTER 2022-04-08 09:32 | Inpatient (IN) ==
[2022-04-08] MEDS ORDERED: SODIUM CHLORIDE 0.9% 1000ML 1,000 ML IV ONE (11:00)
--- NOTE | 2022-04-08 11:02 | Emergency Department Note ---
Impression & Plan Influenza A, Adult failure to thrive, Acute dehydration, Elevated INR, Acute abdominal pain in right lower quadrant ED Provider Note Name: CHRISTINE ENRIQUEZ Age: 67 Sex: M Arrives Via: Walk-In Informant: Patient, family ED Provider: Mikel Munguia MD Chief Complaint: Abdominal pain Impression: As per impressions above Medical Decision Makin-year-old gentleman with extensive past medical history who just had a large stroke and has been at rehab. He was discharged from rehab with INR 1.9 however arrives today with an INR of 7.7. Is also complaining of right lower quadrant abdominal pain generalized weakness and not eating for the last few days. He is dehydrated on well-appearing on arrival. Chest x-ray is consistent with a viral process. Testing for viral is positive for influenza A. His abdominal CT was obtained which is negative for concerning findings at this time other than bilateral patchy infiltrates in the lungs. His INR was confirmed at 7.7. His other labs are unremarkable/stable/baseline. He is actually feeling significantly better after some IV fluids. I reviewed the case with Dr. Marina of hematology and already knows the patient from seeing earlier in the day and her advice is hospitalization due to severe high risk of bleeding or even clotting off again. She feels that bring him into better iron out INR issues would be indicated. Patient is agreeable to this. He was given 5 mg p.o. vitamin K. Hospitalist was consulted for further management. Patient has been sick for more than 2 days and at this point I am not convinced that starting him on Tamiflu to be very beneficial. Unclear why the abdominal pain other than maybe just dehydration and fluid related. There is no evidence of bleed on the CT or other concerning findings at this time. Prior Medical Record and Triage/Nursing Notes reviewed by Me Additional history obtained from chart Differentials:Infection, dehydration, metabolic abnormality, hypo/hyperglycemia, electrolyte disturbance, anemia, hypoxia, cardiac sources, intracerebral event, toxicologic, neurologic, as well as other pathologies. Vital Signs: reviewed and remarkable for no significant abnormalities Interventions: 1 L normal saline bolus IV, 5 mg p.o. vitamin K Labs:Reviewed and remarkable for positive influenza A testing, INR 7.7 Imagin view chest x-ray bilateral viral infiltrates. CT of the abdomen pelvis with IV contrast reveals no acute bleed, hemorrhage or other concerning findings other than bilateral pneumonitis/pneumonia as per radiologist Consults:Dr Yosef OROURKE Hospitalist Plan: Disposition:Hospitalization. Condition: Good History of Present Illness:67-year-old gentleman arrives for evaluation of abdominal pain. Patient with recent discharge from [facility] re[facility] following a stroke. Patient did have a history of known apical left thrombus for which she was on anticoagulants however had to stop them for a colonoscopy and then had a stroke. He has been back on warfarin since. He was at [facility] for some time and discharge about a week ago. Since then he has been having increasing cough, fatigue, chills and not having any appetite. He has not eaten or drank anything in the last few days. This last 24 to 48 hours she has noticed increasing abdominal cramping. Primarily in the right lower quadrant. Worse with movement. Better with rest. Notes while laying in bed he is not in much distress other than feeling like he needs to cough. Denies any falls, trauma, injuries. Denies any headache, neck pain, chest pain, shortness of breath, back pain, black or bloody stools, leg swelling, bleeding/bruising, calf pain or other concerning signs or symptoms. He was seen at the INR clinic this morning and had an INR of 7. He was sent to the ER given elevated INR in the setting of abdominal pain and worsening cough. There is no known COVID at [facility] but he does not believe he was exposed. Family notes he has been very weak and not been able to do much around the house. ROS: See above HPI for pertinent positives & negatives. A total of 10 systems reviewed and were otherwise negative. Past Medical History:See Below Past Surgical History:See Below Family History:See Below Social History:See Below Home Medications:See Below Allergies:See Below Vitals:Blood Pressure: 110/64, Pulse 86, RR 16, T 36.8C, O2 100% on RA Physical Exam: GENERAL: Patient is unwell/dehydrated appearing and in mild distress. EYES: No scleral icterus, unremarkable pupils. ENT: Mucous membranes dry, no nasal congestion. NECK: No masses appreciated, nomeningismus, trachea is midline. RESPIRATORY: No dyspnea. Clear to auscultation and equal bilaterally. No wheeze, no rhonchi. CARDIOVASCULAR: Regular rate and rhythm.No murmurs, rubs, gallops appreciated. GASTROINTESTINAL: TTP over right mid and lower abdomen. Otherwise abdomen soft, non-tender, no peritonitis.Bowel sounds positive.No masses appreciated. BACK: No midline tenderness, no CVA tenderness EXTREMITIES: Normal motion all extremities, no cyanosis, no edema. NEUROLOGIC: Alert and oriented, no acute motor or sensory deficits, right sided weakness, cranial nerves grossly intact. SKIN: No rash, no jaundice, no diaphoresis. PSYCH: Appropriate GCS: 15 ED Course: Times/Reassessments: Patient feeling much better after IV fluids he looks well he is in no distress. Denies further abdominal pain at this time. Mikel Munguia MD Past Med/Surg History Medical History (Updated 04/08/22 @ 14:33 by Mikel Munguia MD) Acute ischemic left MCA stroke Arthritis Bilateral hearing loss CAD (coronary artery disease) Chronic back pain Chronic low back pain with bilateral sciatica Chronic sinusitis Essential hypertension GERD (gastroesophageal reflux disease) History of claustrophobia SEVERE PER PT Hx of intestinal obstruction Hx of vertigo Ischemic cardiomyopathy EF 40-45% per 02/2019 echo Left ventricular apical thrombus [facility] Myocardial infarction 2008, with cardiac arrest x 2. F/U DR [facility] Numbness and tingling of both feet Obesity (BMI 30.0-34.9) Ruptured disc, thoracic Ruptured lumbar disc Thalamic infarct, acute Tinnitus Vertigo Surgical History History of appendectomy History of cardiac cath 01/25/2022 > [facility] > unsure if had stents placed 2020-[facility]>NO STENTS History of esophagogastroduodenoscopy (EGD) History of heart artery stent 2008>1 STENT PLACED AT [facility] History of nasal surgery History of tooth extraction Family History Father Valvular heart disease Heart disease Myocardial infarction Hypertension Stroke Daughter Family history of diabetes mellitus Mother Heart disease Myocardial infarction Breast cancer Cancer Hypertension Other No family history of adverse response to anesthesia Denies family history of Asthma Social History Smoking Status: Never smoker Second Hand Exposure: No; Hx Alcohol Use: No Hx Substance Use: No Preferred Language: Uzbek Communication Ability: Effective 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 Beliefs That Will Affect Care: Spiritual marital status: Current Living Situation: Family Current Living Situation Comment: ex-, 2 children, step-child current occupational status: retired How many Children do 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 have: 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 Safe at Home: Yes Assistive Devices: Glasses Allergies Allergies Allergy/AdvReac Type Severity Reaction Status Date / Time bee venom protein (honey bee) Allergy Severe Anaphylaxis Verified 03/01/22 11:42 adhesive Allergy Intermediate REDDENED, Verified 03/01/22 11:42 ITCHY, IRRITATED SKIN-WITH WHITE TAPE strawberry Allergy Mild Rash, Verified 03/01/22 11:42 MIGRAINES-FEELS LIKE THE FLU celecoxib [From Celebrex] AdvReac Intermediate NAUSEA, Verified 03/01/22 11:42 HEADACHE, CHEST FELT TIGHT ezetimibe [From Zetia] AdvReac Intermediate MUSCLE Verified 03/01/22 11:42 ACHES onion AdvReac Mild Nausea,MIGRAINES-FELT Verified 03/01/22 11:42 LIKE THE FLU Home Meds Home Medications Medication Instructions Recorded Confirmed polyethylene glycol 3350 17 gram 17 g PO DAILY PRN Constipation 01/13/20 2 oral powder packet (Miralax) rosuvastatin 5 mg tablet (Crestor) 5 mg PO PM 01/14/22 04/08/22 famotidine 20 mg tablet (Acid-Pep) 20 mg PO QAM 02/22/22 04/08/22 aspirin 81 mg tablet,delayed 81 mg PO DAILY 04/08/22 04/08/22 release (Adult Low Dose Aspirin) metoprolol succinate 25 mg 12.5 mg PO DAILY 04/08/22 04/08/22 tablet,extended release 24 hr (Toprol XL) sacubitril 24 mg-valsartan 26 mg 1 tab PO BID 04/08/22 04/08/22 tablet (Entresto) warfarin 2.5 mg tablet See Rx Instructions PO DAILY 04/08/22 04/08/22 Previous Rx's Medication Instructions Recorded nitroglycerin 0.3 mg sublingual 0.3 mg sublingual Q5M PRN chest 09/14/21 tablet pain #10 tabs diclofenac sodium 1 % topical gel 2 g topical QID PRN Pain #100 grams 12/24/21 pantoprazole 40 mg tablet,delayed 40 mg PO BID #180 tabs 12/24/21 release meclizine 25 mg tablet 25 mg PO TID #90 tabs 02/26/22 amiodarone 200 mg tablet 200 mg PO PM #90 tabs 03/26/22 Results & Data (ED) Vital Signs Vital Signs - 24 hr 04/08/22 09:32 04/08/22 11:30 04/08/22 13:00 Temperature 36.8 C Temperature Source Temporal Artery Scan Pulse Rate 86 Pulse Rate [Apical] 73 73 Respiratory Rate 16 16 16 Blood Pressure 110/64 Blood Pressure [Left Arm] 113/67 114/62 Blood Pressure Mean 79 Blood Pressure Mean [Left Arm] 82 79 Pulse Oximetry 100 98 100 Sepsis Recent Fever Within 48 Hours No Sepsis New/Unexplained Change in Mental Status N/A Sepsis Action Taken by Nursing No Action Required Laboratory Data Result diagrams: 04/08/22 11:26 04/08/22 14:06 Lab Results 04/08/22 04/08/22 04/08/22 Range/Units 11:26 11:26 11:26 WBC 4.50 L (4.8-10.8) K/ul RBC 4.39 L (4.63-6.08) M/uL Hgb 14.5 (14.0-18.0) g/dl Hct 39.5 L (40.1-51.0) % MCV 90.0 (80.0-100.0) fL MCH 33.0 (25.0-34.0) pg MCHC 36.7 H (32.0-36.0) g/dL RDW Std Deviation 44.7 (36.4-46.3) fL RDW Coeff of Roxy 13.8 (11.5-14.5) % Plt Count 172 (130-400) K/uL MPV 11.4 (9.4-12.4) fL Immature Gran % (Auto) 0.2 % Neut % (Auto) 56.3 % Lymph % (Auto) 24.9 % [place] % (Auto) 15.3 % Eos % (Auto) 3.1 % Baso % (Auto) 0.2 % Neut # (Auto) 2.53 (1.4-6.5) K/uL Lymph # (Auto) 1.12 L (1.2-3.4) K/uL [place] # (Auto) 0.69 (0.24-0.82) K/uL Eos # (Auto) 0.14 (0-0.50) K/uL Baso # (Auto) 0.01 (0-0.2) K/uL Immature Gran # (Auto) 0.01 (0.00-0.02) K/uL PT 73.5 H (9.0-12.0) Seconds INR 7.7 H* (0.9-1.1) APTT 45.4 H* (21.0-31.0) Seconds PTT Ratio 1.7 Sodium 137 (136-145) mmol/L Potassium TNP Chloride 105 (98-107) mmol/L Carbon Dioxide 21 (21-32) mmol/L Anion Gap 11 (3-11) BUN 14 (6-23) mg/dl Creatinine 1.07 (0.6-1.4) mg/dl Est Cr Clr Drug Dosing Not Reportable Est GFR ( Amer) 83.4 ml/min Est GFR (Non-Af Amer) 72.0 ml/min BUN/Creatinine Ratio 13.1 (10-20) Glucose 107 H (70-99(Fasting)) mg/dl Calcium 9.5 (8.5-10.1) mg/dl Magnesium 2.0 (1.7-2.4) mg/dl Total Bilirubin 0.9 (0.2-1.0) mg/dl Direct Bilirubin TNP AST TNP ALT 25 (7-52) U/L Alkaline Phosphatase 69 (34-104) U/L Troponin I High Sens 13.0 (0-20) pg/ml Total Protein 7.7 (6.0-8.3) gm/dl Albumin 4.1 (3.4-5.0) gm/dl Lipase 14 (11-82) U/L SARS-CoV-2 (PCR) (Negative) Influenza Type A (PCR) (Neg) Influenza Type B (PCR) (Neg) RSV (RT-PCR) (Neg) 04/08/22 04/08/22 04/08/22 Range/Units 11:26 12:49 14:06 WBC (4.8-10.8) K/ul RBC (4.63-6.08) M/uL Hgb (14.0-18.0) g/dl Hct (40.1-51.0) % MCV (80.0-100.0) fL MCH (25.0-34.0) pg MCHC (32.0-36.0) g/dL RDW Std Deviation (36.4-46.3) fL RDW Coeff of Roxy (11.5-14.5) % Plt Count (130-400) K/uL MPV (9.4-12.4) fL Immature Gran % (Auto) % Neut % (Auto) % Lymph % (Auto) % [place] % (Auto) % Eos % (Auto) % Baso % (Auto) % Neut # (Auto) (1.4-6.5) K/uL Lymph # (Auto) (1.2-3.4) K/uL [place] # (Auto) (0.24-0.82) K/uL Eos # (Auto) (0-0.50) K/uL Baso # (Auto) (0-0.2) K/uL Immature Gran # (Auto) (0.00-0.02) K/uL PT (9.0-12.0) Seconds INR (0.9-1.1) APTT (21.0-31.0) Seconds PTT Ratio Sodium (136-145) mmol/L Potassium Cancelled 3.2 L Chloride (98-107) mmol/L Carbon Dioxide (21-32) mmol/L Anion Gap (3-11) BUN (6-23) mg/dl Creatinine (0.6-1.4) mg/dl Est Cr Clr Drug Dosing Est GFR ( Amer) ml/min Est GFR (Non-Af Amer) ml/min BUN/Creatinine Ratio (10-20) Glucose (70-99(Fasting)) mg/dl Calcium (8.5-10.1) mg/dl Magnesium (1.7-2.4) mg/dl Total Bilirubin (0.2-1.0) mg/dl Direct Bilirubin Cancelled 0.2 AST Cancelled 17 ALT (7-52) U/L Alkaline Phosphatase (34-104) U/L Troponin I High Sens (0-20) pg/ml Total Protein (6.0-8.3) gm/dl Albumin (3.4-5.0) gm/dl Lipase (11-82) U/L SARS-CoV-2 (PCR) NEGATIVE (Negative) Influenza Type A (PCR) Positive A* (Neg) Influenza Type B (PCR) Negative (Neg) RSV (RT-PCR) Negative (Neg) Administered Medications Discontinued Medications Sodium Chloride (Nss 1000ml) 1,000 mls @ 999 mls/hr IV .Q1H1M ONE Stop: 04/08/22 12:00 Last Admin: 04/08/22 11:23 Dose: 999 mls/hr Documented By: JAMI Ioversol (Optiray 350 100ml) 87 ml IV ONCE ONE Stop: 04/08/22 13:43 Last Admin: 04/08/22 13:43 Dose: 87 ml Documented By: DIANA Phytonadione (Phytonadione 5 Mg Tab) 5 mg PO NOW STA Stop: 04/08/22 14:22 Last Admin: 04/08/22 14:51 Dose: 5 mg Documented By: JAMI Imaging Data Radiologist's Impression: Abdomen/Pelvis CT 04/08/22 11:[address] WITH IV CONTRAST CT DOSE: 618.38 mGy.cm HISTORY: Acute right lower quadrant abdominal pain RLQ pain, elevated INR TECHNIQUE: Multiaxial CT images of the abdomen and pelvis were performed following the IV administration of 87 cc of Optiray, A dose lowering technique was utilized adhering to the principles of ALARA. COMPARISON STUDY: CT abdomen and pelvis 01/13/2020 FINDINGS: Coronary artery calcifications. Bronchial wall thickening with mild mucous plugging. Mild patchy subsegmental consolidative opacities of the basal left lower lobe. No pneumatosis or pneumoperitoneum. Unremarkable spleen, pancreas and adrenal glands. The gallbladder and liver are within normal limits. Patency of the hepatic and portal veins. Unremarkable right kidney. There are a few small bilateral renal sinus cysts redemonstrated. There are 3 calcifications noted within the regions left renal pelvis measuring up to 3 mm, new from prior. No ureteral calculi or hydronephrosis. Prostate is upper limits of normal in size. There is mild circumferential urinary bladder wall thickening with partial distention. Atherosclerosis of the aorta without aneurysm. No lymphadenopathy identified. No bowel obstruction or bowel wall thickening. Surgical clips within the abdominal right lower quadrant. No CT evidence of acute appendicitis. Soft tissue attenuating nodular foci within the right lower anterior abdominal wall subcutaneous tissues measuring up to 1.2 cm, possibly injection granulomata. No ascites or mesenteric inflammation. No acute fracture identified. IMPRESSION: 1. No bowel obstruction or bowel wall thickening. 2. Mild urinary bladder wall thickening with partial distention. Correlate with urinalysis. 3. There are three calcifications within the left renal sinus measuring up to 3 mm which are new from prior and may represent nonobstructing calculi within the renal pelvis. No ureteral calculi or hydronephrosis. 4. Mild patchy opacities within the basal left lower lobe are suspicious for an infectious or inflammatory pneumonitis. 5. Additional findings as above. ACT 112: Negative or not required by law. The above report was generated using voice recognition software. It may contain grammatical, syntax or spelling errors. Electronically signed by: Colton Lin M.D. 04/08/2022 2:13 PM Chest X-Ray 04/08/22 11:00 XR chest 1V portable HISTORY: 67 years-old Male coughing acute cough with shortness of breath COMPARISON: Chest radiograph 11/06/2021 TECHNIQUE: AP view of the chest FINDINGS: Cardiomediastinal and hilar silhouettes are within normal limits. No pneumothorax, pleural effusion, airspace consolidation or overt pulmonary edema. Degenerative changes of the shoulders and spine. IMPRESSION: No acute process. ACT 112: Negative or not required by law. The above report was generated using voice recognition software. It may contain grammatical, syntax or spelling errors. Electronically signed by: Colton Lin M.D. 04/08/2022 11:18 AM Discharge Plan Visit Data Chief Complaint: Abdominal Pain Stated Complaint: ABD PAIN, VOMITING ED Provider: Mikel Munguia Discharge Problem: Influenza A, Adult failure to thrive, Acute dehydration, Elevated INR, Acute abdominal pain in right lower quadrant Forms Stand Alone Forms: [facility] Prescriptions Prescriptions: No Action aspirin [Adult Low Dose Aspirin] 81 mg tablet,delayed release (DR/EC) 81 mg PO DAILY Entresto 24-26 mg tablet 1 tab PO BID metoprolol succinate [Toprol XL] 25 mg tablet extended release 24 hr 12.5 mg PO DAILY warfarin 2.5 mg tablet See Rx Instructions PO DAILY Rx Instructions: 5 mg Tues Thurs Sat and 2.5 mg x 4 days orally daily; meclizine 25 mg tablet 25 mg PO TID Qty: 90 1RF amiodarone 200 mg tablet 200 mg PO PM Qty: 90 3RF nitroglycerin 0.3 mg tablet, sublingual 0.3 mg sublingual Q5M PRN (Reason: chest pain) Qty: 10 0RF Rx Instructions: do not exceed 3 doses per episode diclofenac sodium 1 % gel 2 g TOPICAL QID PRN (Reason: Pain) Qty: 100 3RF pantoprazole 40 mg tablet,delayed release (DR/EC) 40 mg PO BID Qty: 180 3RF rosuvastatin [Crestor] 5 mg tablet 5 mg PO PM polyethylene glycol 3350 [Miralax] 17 gram Powder In Packet 17 g PO DAILY PRN (Reason: Constipation) famotidine [Acid-Pep] 20 mg Tablet 20 mg PO QAM Referrals Referrals: Ethel Layne MD [Primary Care Provider] -
--- NOTE | 2022-04-08 11:19 | XRay Report ---
XR chest 1V portable HISTORY: 67 years-old Male coughing acute cough with shortness of breath COMPARISON: Chest radiograph 11/06/2021 TECHNIQUE: AP view of the chest FINDINGS: Cardiomediastinal and hilar silhouettes are within normal limits. No pneumothorax, pleural effusion, airspace consolidation or overt pulmonary edema. Degenerative changes of the shoulders and spine. IMPRESSION: No acute process. ACT 112: Negative or not required by law. The above report was generated using voice recognition software. It may contain grammatical, syntax o r spelling errors. Electronically signed by: Colton Lin M.D. 04/08/2022 11:18 AM
[2022-04-08 11:40] LABS: Basophils # (auto) 0.01 K/uL (0-0.2); Basophils % (auto) 0.2 %; Eosinophils # (auto) 0.14 K/uL (0-0.50); Eosinophils % (auto) 3.1 %; Hematocrit (blood only) 39.5 % (40.1-51.0); Hemoglobin 14.5 g/dl (14.0-18.0); Immature Granulocytes # (auto) 0.01 K/uL (0.00-0.02); Immature Granulocytes % (auto) 0.2 %; Lymphocytes # (auto) 1.12 K/uL (1.2-3.4); Lymphocytes % (auto) 24.9 %; Mean Corpuscular Hgb Conc 36.7 g/dL (32.0-36.0); Mean Platelet Volume 11.4 fL (9.4-12.4); Monocytes # (auto) 0.69 K/uL (0.24-0.82); Monocytes % (auto) 15.3 %; Neutrophils # (auto) 2.53 K/uL (1.4-6.5); Neutrophils % (auto) 56.3 %; Platelet Count 172 K/uL (130-400); RDW Coefficient of Variation 13.8 % (11.5-14.5); RDW Standard Deviation 44.7 fL (36.4-46.3); Red Blood Count 4.39 M/uL (4.63-6.08)
[2022-04-08 12:12] LABS: Partial Thromboplastin Ratio 1.7; Prothrombin Time 73.5 Seconds (9.0-12.0)
[2022-04-08 12:22] LABS: Influenza B virus by PCR Negative (Neg); RSV by PCR Negative (Neg); SARS CoV2 RNA(COVID-19) Ceph NEGATIVE (Negative)
[2022-04-08 12:25] LABS: Influenza A virus by PCR Positive (Neg)
[2022-04-08 12:36] LABS: Alanine Aminotransferase 25 U/L (7-52); Albumin Level 4.1 gm/dl (3.4-5.0); Alkaline Phosphatase 69 U/L (34-104); Anion Gap 11 (3-11); BUN Creatinine Ratio 13.1 (10-20); Bilirubin,Total 0.9 mg/dl (0.2-1.0); Blood Urea Nitrogen 14 mg/dl (6-23); Calcium 9.5 mg/dl (8.5-10.1); Carbon Dioxide 21 mmol/L (21-32); Chloride 105 mmol/L (98-107); Est GFR (African American) 83.4 ml/min; Glucose 107 mg/dl (70-99(Fasting)); Lipase 14 U/L (11-82); Sodium 137 mmol/L (136-145); Total Protein 7.7 gm/dl (6.0-8.3)
[2022-04-08 12:45] LABS: INR 7.7 (0.9-1.1); Partial Thromboplastin Time 45.4 Seconds (21.0-31.0)
[2022-04-08] MEDS ORDERED: OPTIRAY 350 100ml IV ONE (13:42)
--- NOTE | 2022-04-08 14:16 | CT Scan Report ---
ABDOMEN AND PELVIS CT WITH IV CONTRAST CT DOSE: 618.38 mGy.cm HISTORY: Acute right lower quadrant abdominal pain RLQ pain, elevated INR TECHNIQUE: Multiaxial CT images of the abdomen and pelvis were performed following the IV administrat ion of 87 cc of Optiray, A dose lowering technique was utilized adhering to the principles of ALARA. COMPARISON STUDY: CT abdomen and pelvis 01/13/2020 FINDINGS: Coronary artery calcifications. Bronchial wall thickening with mild mucous plugging. Mild p atchy subsegmental consolidative opacities of the basal left lower lobe. No pneumatosis or pneumoperi toneum. Unremarkable spleen, pancreas and adrenal glands. The gallbladder and liver are within normal limits. Patency of the hepatic and portal veins. Unremarkable right kidney. There are a few small bilateral renal sinus cysts redemonstrated. There are 3 calcifications noted within the regions left renal pelv is measuring up to 3 mm, new from prior. No ureteral calculi or hydronephrosis. Prostate is upper [place] its of normal in size. There is mild circumferential urinary bladder wall thickening with partial dis tention. Atherosclerosis of the aorta without aneurysm. No lymphadenopathy identified. No bowel obstruction or bowel wall thickening. Surgical clips within the abdominal right lower quadra nt. No CT evidence of acute appendicitis. Soft tissue attenuating nodular foci within the right lower anterior abdominal wall subcutaneous tissues measuring up to 1.2 cm, possibly injection granulomata. No ascites or mesenteric inflammation. No acute fracture identified. IMPRESSION: 1. No bowel obstruction or bowel wall thickening. 2. Mild urinary bladder wall thickening with partial distention. Correlate with urinalysis. 3. There are three calcifications within the left renal sinus measuring up to 3 mm which are new from prior and may represent nonobstructing calculi within the renal pelvis. No ureteral calculi or hydro nephrosis. 4. Mild patchy opacities within the basal left lower lobe are suspicious for an infectious or inflamm atory pneumonitis. 5. Additional findings as above. ACT 112: Negative or not required by law. The above report was generated using voice recognition software. It may contain grammatical, syntax o r spelling errors. Electronically signed by: Colton Lin M.D. 04/08/2022 2:13 PM
[2022-04-08] MEDS ORDERED: PHYTONADIONE 5 MG TAB PO STA (14:21)
--- NOTE | 2022-04-08 14:44 | History & Physical Report ---
Date of Service April 08, 2022 Assessment & Plan (1) Influenza A: Plan: -Admit to med/tele -Patient is currently afebrile, hemodynamically stable, and stable on RA -Patient noted to be influenza A + on initial workup in the ED, he currently has a non-productive cought -Will start BID Tamiflu on admission and continue for a total of 5 days -Incentive spirometry, flutter therapy, scheduled DuoNebs and Robitussin -PRN O2 for Spo2 less than 95% on RA -Monitor on tele and pulse oximetry (2) Elevated INR: Plan: -Noted to be 7.9 today during his Anticoagulation clinic visit with Dr. Marina -Unsure of the exact cause at this time but possibly related to poor compliance or confusion with dosing -Dr. Marina spoke with ED staff regarding observation, recommended giving patient 5 mg PO Vit K and repeat INR in the AM -Strongly discouraged IV reversal due to patient's recent stroke and known left apical thrombus -She will follow along and assist with management -No signs of active bleeding on exam and patient is hemodynamically stable, continue to monitor (3) Hypokalemia: Plan: -Noted to be 3.2 in the ED -Will give 20 meq PO KCL x 2 doses now -Likely due to poor oral intake, Mag level is WNL -Monitor on tele and monitor AM potassium level (4) Acute abdominal pain in right lower quadrant: Plan: -Patient has noted 3-4 days of suprapubic abdominal pain but denies urinary frequency and dysuria -CT of the abdomen/pelvis with IV contrast was negative for obstruction obstruction, obstructing urinary calculi, or other acute findings besides mild urinary bladder wall thickening with partial distention -UA was ordered by ED staff but not yet collected, spoke with his ED nurse who will collect a specimen now, patient may have to be straight-cathed to obtain sample, order is in, will follow up -Will use tylenol prn for now as patient's pain is not currently severe -If UA is positive will order abx -Patient has been stable and with signs of systemic infection (5) Hyperlipidemia: Plan: -Continue statin (6) Esophagitis: Plan: -Continue famotidine (7) Dizziness: Plan: -Continue meclazine (8) Paroxysmal atrial fibrillation: Plan: -Currently rate controlled -Continue amiodarone, metoprolol, (9) Ischemic cardiomyopathy: Plan: -Examines euvolemic on exam -Continue Entresto (10) CAD (coronary artery disease): Plan: -Continue aspirin (11) 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 Navas at the time of the admission History of Present Illness Chief Complaint: Abdominal pain Primary Care Provider: Ethel Layne MD Cholo is a 67 year old male with a PMH significant for afib, recent acute left MCA stroke diagnosed in the [facility] ED on 03/01/22, hyperlipidemia, obesity, GERD with esophagitis, CAD, VF arrest and anterior STEMI; PCI with stent to the LAD in 2020, HTN, and chronic pain syndrome who presented to the [facility] ED on 04/08/22 with a chief complaint of abdominal pain. In the ED the patient was found to be afebrile hemodynamically stable, and stable on RA. Labs were remarkable for a WBC of 4.5, hgb of 14.5 (stable from 14.9 as of 03/01), stable platelets, INR of 7.9, stable renal function and electrolytes (repeat potassium is pending), lipase of 14, repeat LFTs are pending due to being to hemolyzed on first draw, and influenza A positive. Chest xray was read as negative for acute processes. CT of the abdomen/pelvis with IV contrast showed "1. No bowel obstruction or bowel wall thickening. 2. Mild urinary bladder wall thickening with partial distention. Correlate with urinalysis. 3. There are three calcifications within the left renal sinus measuring up to 3 mm which are new from prior and may represent nonobstructing calculi within the renal pelvis. No ureteral calculi or hydronephrosis. 4. Mild patchy opacities within the basal left lower lobe are suspicious for an infectious or inflammatory pneumonitis.5. Additional findings as above.". The ED staff spoke with Dr. Marina of the anticoagulation clinic due to the elevated INR and recent complex medical history. Dr. Marina recommended observation with initiation or oral vitamin K now (given by ED staff) and INR monitoring in the AM, she will follow along. Prior to admission the patient was given 1L NSS bolus and 5 mg PO phytonadione. Per chart review, the patient was initially seen in the [facility] ED on 03/01/22 for his stroke-like symptoms, he was subsequently transferred to [facility] for further treatment, Per the discharge summary, the patient underwent successful mechanical thrombectomy with reperfusion. TTE during his admission showed a left apical thrombus. Prior [facility] he was started on Warfarin and bridged with lovenox. Per review of the Anticoagulation clinic note from this am, the patient was reportedly discharged from the orthopedic specialty hospital approximately 6 days ago. He was seen this am by Dr. Marina in the anticoagulation clinic where he was found to have the INR of 7.9. Due to the patient's elevated INR and symptoms including abdominal pain and chest discomfort he was sent to the ED for further evaluation. At the time of my exam the patient was lying in bed in no acute distress. The patient was anxious and somewhat tearful at the start of my exam due to the steep decline in health over the past few months. He states that at the time of my exam he is having intermittent suprapubic pain. He confirms that this is the pain he reported in the anticoagulation clinic this morning. He states that it has been intermittent over the past week or so, describes the pain as cramping, is not associated with bowel movements or urination, and is a 5/10 at it's worst. He denies recent dysuria or hematuria since his discomfort started. He denies recent fevers/chills but notes a non-productive cough and some SOB over the past 3-4 days. He denies chest pain, upper abdominal pain, nausea, vomiting, diarrhea, melena, and recent falls. The patient has baseline right-sided weakness and also has word-finding difficulties since his stroke, this is often the cause of his frustration and anxiety. When asked, he states that he lives with his son and his son's family who help to care for him. He states that his son and his ex- are currently assisting him with keeping his medications organized. I spoke to him regarding code status, the patient wishes to be a Full Code and would want his ex-, Radha Dudley ([phone]) to make decisions for him if he could not make them himself. [place] refer to Dr. Baresel's attestation for any changes to the treatment plan. Allergies Allergy/AdvReac Type Severity Reaction Status Date / Time bee venom protein (honey bee) Allergy Severe Anaphylaxis Verified 03/01/22 11:42 adhesive Allergy Intermediate REDDENED, Verified 03/01/22 11:42 ITCHY, IRRITATED SKIN-WITH WHITE TAPE strawberry Allergy Mild Rash, Verified 03/01/22 11:42 MIGRAINES-FEELS LIKE THE FLU celecoxib [From Celebrex] AdvReac Intermediate NAUSEA, Verified 03/01/22 11:42 HEADACHE, CHEST FELT TIGHT ezetimibe [From Zetia] AdvReac Intermediate MUSCLE Verified 03/01/22 11:42 ACHES onion AdvReac Mild Nausea,MIGRAINES-FELT Verified 03/01/22 11:42 LIKE THE FLU Home Medications Medication Instructions Recorded Confirmed Type polyethylene glycol 3350 17 gram 17 g PO DAILY PRN Constipation 01/13/20 04/08/22 History oral powder packet (Miralax) nitroglycerin 0.3 mg sublingual 0.3 mg sublingual Q5M PRN chest 09/14/21 04/08/22 Rx tablet pain #10 tabs diclofenac sodium 1 % topical gel 2 g topical QID PRN Pain #100 grams 12/24/21 04/08/22 Rx pantoprazole 40 mg tablet,delayed 40 mg PO BID #180 tabs 12/24/21 04/08/22 Rx release rosuvastatin 5 mg tablet (Crestor) 5 mg PO PM 01/14/22 04/08/22 History famotidine 20 mg tablet (Acid-Pep) 20 mg PO QAM 02/22/22 04/08/22 History meclizine 25 mg tablet 25 mg PO TID #90 tabs 02/26/22 04/08/22 Rx amiodarone 200 mg tablet 200 mg PO PM #90 tabs 03/26/22 04/08/22 Rx aspirin 81 mg tablet,delayed 81 mg PO DAILY 04/08/22 04/08/22 History release (Adult Low Dose Aspirin) metoprolol succinate 25 mg 12.5 mg PO DAILY 04/08/22 04/08/22 History tablet,extended release 24 hr (Toprol XL) sacubitril 24 mg-valsartan 26 mg 1 tab PO BID 12/26/22 12/26/22 History tablet (Entresto) warfarin 2.5 mg tablet See Rx Instructions PO DAILY 04/08/22 04/08/22 History Past Med/Surg History Medical History (Updated 04/08/22 @ 21:10 by Brando Mccullough PA-C) Acute ischemic left MCA stroke Arthritis Bilateral hearing loss CAD (coronary artery disease) Chronic back pain Chronic low back pain with bilateral sciatica Chronic sinusitis Essential hypertension GERD (gastroesophageal reflux disease) History of claustrophobia SEVERE PER PT Hx of intestinal obstruction Hx of vertigo Ischemic cardiomyopathy EF 40-45% per 02/2019 echo Left ventricular apical thrombus [facility] Myocardial infarction 2008, with cardiac arrest x 2. F/U DR [facility] Numbness and tingling of both feet Obesity (BMI 30.0-34.9) Ruptured disc, thoracic Ruptured lumbar disc Thalamic infarct, acute Tinnitus Vertigo Surgical History History of appendectomy History of cardiac cath 01/25/2022 > [facility] > unsure if had stents placed 2020-[facility]>NO STENTS History of esophagogastroduodenoscopy (EGD) History of heart artery stent 2008>1 STENT PLACED AT [facility] History of nasal surgery History of tooth extraction Family History Father Valvular heart disease Heart disease Myocardial infarction Hypertension Stroke Daughter Family history of diabetes mellitus Mother Heart disease Myocardial infarction Breast cancer Cancer Hypertension Other No family history of adverse response to anesthesia Denies family history of Asthma Social History Smoking Status: Never smoker Second Hand Exposure: No; Hx Alcohol Use: No Hx Substance Use: No Preferred Language: Italian Communication Ability: Effective Tube Balancer Required: No Beliefs That Will Affect Care: None marital status: Current Living Situation: Spouse Current Living Situation Comment: ex-, 2 children, step-child current occupational status: retired How many 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 All systems have been reviewed and are otherwise negative. Physical Exam Physical Exam: Physical Exam: General: In mild distress due to frustration/anxiety, stated age, chronically ill-appearing, non-toxic appearing HEENT: Normocephalic, atraumatic, no scleral icterus, pupils around round, symmetrical, and reactive to light, dry mucus membranes, trachea midline, no thyromegaly Chest/Pulm: No respiratory distress, symmetrical chest expansion, scattered expiratory wheezing throughout Cardiac: irregular rate and rhythm, no murmurs noted Abdomen: Negative for ascites and bruising, normoactive bowel sounds, soft, mildly tender to palpation over the suprapubic region but otherwise non-tender Musculoskeletal: Patient with baseline significant right upper and lower extremity, no acute trauma noted, patient with intact strength in the BL left upper and lower extremities Extremities: Radial, dorsalis pedis, and posterior tibial pulses are intact and symmetrical, no edema noted in the BL LE's Skin: Warm, dry, no rashes , lesions, or scars noted Neuro: Alert and oriented to person, place, month, year, and president, patient with baseline right-sided weakness and word-finding difficulties, otherwise no focal defects noted on exam Psych: Mild distress due to anxiety and frustration but polite and cooporative with exam Results & Data Results & Data ([facility]) Vital Signs (Past 12 Hours) Vital Signs Temp Pulse Pulse Resp BP BP Pulse Ox 04/08/22 13:00 73 16 114/62 100 04/08/22 11:30 73 16 113/67 98 04/08/22 09:32 36.8 C 86 16 110/64 100 Laboratory Results Abnormal lab results 04/08/22 04/08/22 04/08/22 Range/Units 11:26 11:26 11:26 WBC 4.50 L (4.8-10.8) K/ul RBC 4.39 L (4.63-6.08) M/uL Hct 39.5 L (40.1-51.0) % MCHC 36.7 H (32.0-36.0) g/dL Lymph # (Auto) 1.12 L (1.2-3.4) K/uL PT 73.5 H (9.0-12.0) Seconds INR 7.7 H* (0.9-1.1) APTT 45.4 H* (21.0-31.0) Seconds Potassium (3.5-5.1) mmol/L Glucose 107 H (70-99(Fasting)) mg/dl Influenza Type A (PCR) (Neg) 04/08/22 04/08/22 Range/Units 11:26 14:06 WBC (4.8-10.8) K/ul RBC (4.63-6.08) M/uL Hct (40.1-51.0) % MCHC (32.0-36.0) g/dL Lymph # (Auto) (1.2-3.4) K/uL PT (9.0-12.0) Seconds INR (0.9-1.1) APTT (21.0-31.0) Seconds Potassium 3.2 L (3.5-5.1) mmol/L Glucose (70-99(Fasting)) mg/dl Influenza Type A (PCR) Positive A* (Neg) Diagnostic Findings Abdomen/Pelvis CT 04/08/22 11:[address] WITH IV CONTRAST CT DOSE: 618.38 mGy.cm HISTORY: Acute right lower quadrant abdominal pain RLQ pain, elevated INR TECHNIQUE: Multiaxial CT images of the abdomen and pelvis were performed following the IV administration of 87 cc of Optiray, A dose lowering technique was utilized adhering to the principles of ALARA. COMPARISON STUDY: CT abdomen and pelvis 01/13/2020 FINDINGS: Coronary artery calcifications. Bronchial wall thickening with mild mucous plugging. Mild patchy subsegmental consolidative opacities of the basal left lower lobe. No pneumatosis or pneumoperitoneum. Unremarkable spleen, pancreas and adrenal glands. The gallbladder and liver are within normal limits. Patency of the hepatic and portal veins. Unremarkable right kidney. There are a few small bilateral renal sinus cysts redemonstrated. There are 3 calcifications noted within the regions left renal pelvis measuring up to 3 mm, new from prior. No ureteral calculi or hydronephrosis. Prostate is upper limits of normal in size. There is mild circumferential urinary bladder wall thickening with partial distention. Atherosclerosis of the aorta without aneurysm. No lymphadenopathy identified. No bowel obstruction or bowel wall thickening. Surgical clips within the abdominal right lower quadrant. No CT evidence of acute appendicitis. Soft tissue attenuating nodular foci within the right lower anterior abdominal wall subcutaneous tissues measuring up to 1.2 cm, possibly injection granulomata. No ascites or mesenteric inflammation. No acute fracture identified. IMPRESSION: 1. No bowel obstruction or bowel wall thickening. 2. Mild urinary bladder wall thickening with partial distention. Correlate with urinalysis. 3. There are three calcifications within the left renal sinus measuring up to 3 mm which are new from prior and may represent nonobstructing calculi within the renal pelvis. No ureteral calculi or hydronephrosis. 4. Mild patchy opacities within the basal left lower lobe are suspicious for an infectious or inflammatory pneumonitis. 5. Additional findings as above. ACT 112: Negative or not required by law. The above report was generated using voice recognition software. It may contain grammatical, syntax or spelling errors. Electronically signed by: Colton Lin M.D. 04/08/2022 2:13 PM Chest X-Ray 04/08/22 11:00 XR chest 1V portable HISTORY: 67 years-old Male coughing acute cough with shortness of breath COMPARISON: Chest radiograph 11/06/2021 TECHNIQUE: AP view of the chest FINDINGS: Cardiomediastinal and hilar silhouettes are within normal limits. No pneumothorax, pleural effusion, airspace consolidation or overt pulmonary edema. Degenerative changes of the shoulders and spine. IMPRESSION: No acute process. ACT 112: Negative or not required by law. The above report was generated using voice recognition software. It may contain grammatical, syntax or spelling errors. Electronically signed by: Colton Lin M.D. 04/08/2022 11:18 AM ECG Additional Comments: No ECG available at the time of the admission, will obtain one now Code Status & VTE Plan Code Status FUll code VTE Prophylaxis Plan VTE Prophylaxis will be ordered: Yes Supervising Physician Co-Signing Physician Notes Patient seen and examined, chart reviewed, case discussed with Brando Mccullough PA-C and I agree with the assessment and plan as above except as otherwise noted Labs and images reviewed Patient is seen in coordination with Brando Mccullough PA-C; pt seen in ER after conversion to ER bed held due to extremely high volume. Is a patient with a history of A. fib, left MCA stroke, hyperlipidemia, obesity, GERD, CAD, VF a rrest and anterior STEMI, PCI to LAD in 2020, hypertension, chronic pain who presents with abdominal pain. He was hemodynamically stable, on room air, and is found to have influenza A on ER assessment. Given comorbidities Tamiflu was recommended and started. Patient with an INR 7.9 as outpatient, patient received 5 mg of vitamin K. This was discussed with coagulation clinic, reversal is not recommended due to patient's recent stroke and left a full thrombus placing him at extremely high risk for complications. In absence of active bleeding, will continue to trend INR and follow. UA remains pending, CT suspicious for possible UTI leading to his confusion and pain otherwise no acute findings. In absence of urinary symptoms will defer empiric treatment pending UA. Overall I have increased confusion and general illness in the setting of influenza. Patient seen briefly at bedside, at time of visit does express frustration over his health issues, denies urinary symptoms, denies sputum production, endorses dry cough with shortness of breath and fatigue. Residual deficits from his stroke include difficulty speaking and right-sided weakness. Patient has mild suprapubic tenderness, otherwise abdomen soft/nontender. Lungs are with mild end expiratory wheezes, no rales/rhonchi/crackles. Agree with management above. PG Care Time/CCT Total # of Minutes Spent Total Time Spent with Patient: Total time spent is greater than 50% in coordination of care (as documented) at patient's floor/unit and/or counseling patient: Coding Level of Care Code Established Pt INT OBSERVATION CARE 70M LVL 3 Patient Type Established Medical Decision Making High Complexity Diagnoses Influenza A J10.1 Elevated INR R79.1 Hypokalemia E87.6 Acute abdominal pain in right lower quadrant R10.31 Hyperlipidemia E78.5 Esophagitis K20.9 Dizziness R42 Paroxysmal atrial fibrillation I48.0 Ischemic cardiomyopathy I25.5 CAD (coronary artery disease) I25.10 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
[2022-04-08 14:52] LABS: Bilirubin Direct 0.2 mg/dl (0-0.2); Potassium 3.2 mmol/L (3.5-5.1)
[2022-04-08] MEDS: POTASSIUM CHLORIDE CRTAB 20 MEQ TABCR PO SCH ×2 (16:18→18:30)
[2022-04-08] MEDS ORDERED: Patient's HEIGHT &/or WEIGHT Needed SCH (18:15)
[2022-04-08] MEDS ORDERED: POLYETHYLENE (MIRALAX) 17 GM PACK PO PRN (18:18)
[2022-04-08] MEDS: ALBUT/IPRATROP 3MG/0.5MG NEB 3 ML VIAL NEB SCH (19:08)
[2022-04-08] MEDS: AMIODARONE 200 MG TAB PO SCH (20:34)
[2022-04-08] MEDS: MECLIZINE HCL 25 MG TAB PO SCH (20:34)
[2022-04-08] MEDS: ROSUVASTATIN CALCIUM 5 MG TAB PO SCH (20:34)
[2022-04-08] MEDS: PANTOprazole 40 MG TAB PO SCH (20:34)
[2022-04-08] MEDS: VALSARTAN/SACUBITRIL 26/24MG TAB PO SCH (20:34)
[2022-04-08] MEDS: guaiFENesin SUGAR FREE 200 MG/10 ML UDC PO SCH (20:34)
[2022-04-08] MEDS: OSELTAMIVIR PHOSPHATE SUSP 75 MG/12.5 ML UDP PO SCH (21:17)
[2022-04-08] MEDS ORDERED: ONDANSETRON INJ 2 MG/ML 2 ML VIAL IV PRN (22:01)
[2022-04-08 22:20] LABS: Appearance Urine Clear (Clear); Bacteria Urine Automated Negative (Negative); Bilirubin Urine Negative (Negative); Blood Urine Negative (Negative); Cast Urine Automated 0 /lpf (0-5); Color Urine Yellow; Epithelial Cell Urine Auto 0-5 /lpf (0-5); Glucose Urine UA Negative (Negative); Ketones Urine Trace (Negative); Leukocyte Esterase Urine Negative (Negative); Nitrite Urine Negative (Negative); Protein Urine Trace (Negative); RBC Urine Automated 0-4 /hpf (0-4); Specific Gravity Urine > 1.045 (1.000-1.030); Urobilinogen Urine Negative (Negative)
[2022-04-09] MEDS: guaiFENesin SUGAR FREE 200 MG/10 ML UDC PO SCH ×4 (01:00→20:30)
[2022-04-09] MEDS: ALBUT/IPRATROP 3MG/0.5MG NEB 3 ML VIAL NEB SCH (05:55)
[2022-04-09 06:56] LABS: INR 4.8 (0.9-1.1); Prothrombin Time 47.4 Seconds (9.0-12.0)
[2022-04-09] MEDS: METOPROLOL SUCC 25MG EXT REL TAB PO SCH (07:53)
[2022-04-09] MEDS: OSELTAMIVIR PHOSPHATE SUSP 75 MG/12.5 ML UDP PO SCH ×2 (07:53→21:07)
[2022-04-09] MEDS: MECLIZINE HCL 25 MG TAB PO SCH ×3 (07:53→20:30)
[2022-04-09] MEDS: ASPIRIN 81 MG ECTAB PO SCH (07:53)
[2022-04-09] MEDS: FAMOTIDINE 20 MG TAB PO SCH (07:54)
[2022-04-09] MEDS: VALSARTAN/SACUBITRIL 26/24MG TAB PO SCH ×2 (07:54→20:30)
[2022-04-09] MEDS: PANTOprazole 40 MG TAB PO SCH ×2 (07:54→20:30)
[2022-04-09] MEDS ORDERED: ALBUT/IPRATROP 3MG/0.5MG NEB 3 ML VIAL NEB PRN (08:11)
--- NOTE | 2022-04-09 17:14 | Electrocardiogram Report ---
Test Reason : Blood Pressure : / mmHG Vent. Rate : 081 BPM Atrial Rate : 081 BPM P-R Int : 172 ms QRS Dur : 088 ms QT Int : 370 ms P-R-T Axes : 057 067 098 degrees QTc Int : 429 ms Normal sinus rhythm Poor R wave progression, consider anterior [place] vs. lead placement vs. LVH Abnormal ECG When compared with ECG of 01-MAR-2022 10:53, No significant change was found Confirmed by Alex Nolasco ([id number]) on 04/09/2022 5:14:09 PM Referred By: REFERRED SELF Confirmed By:Micheal Nolasco
[2022-04-09] MEDS: ROSUVASTATIN CALCIUM 5 MG TAB PO SCH (20:30)
[2022-04-09] MEDS: AMIODARONE 200 MG TAB PO SCH (20:30)
[2022-04-09] MEDS: OSELTAMIVIR PHOSPHATE 75 MG CAP PO SCH (21:08)
--- NOTE | 2022-04-09 22:00 | Hospitalist Progress Note ---
Date of Service April 09, 2022 Assessment & Plan (1) Influenza A: Plan: cont tamiflu x 5 days supportive care no evidence of complicating bacterial infection (2) Elevated INR: Plan: Noted to be 7.9 today during his Anticoagulation clinic visit with Dr. Marina day of admission s/p 5mg vit K x 1 daily INR while here (3) Hypokalemia: Plan: replaced BMP am mag level 2 yesterday (4) Acute abdominal pain in right lower quadrant: Plan: resolved u/a not suspicious for UTI CT abd/pelvis without acute findings etiology? 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: Plan: Apical thrombus detected on echo while at [facility] for his L MCA stroke During that stay he also had PAF by report Now on coumadin with amiodarone Plan PT eval ?confusion - if present due to flu A infection I left message for asking her to visit with him and let us know if he is at neuropsych baseline Admission and Anticipated Discharge Date Admission Date: April 08, 2022 Subjective patient sitting in chair "I want to go home" states that since his stroke he has been essentially wheelchair dependent per ER staff he ate a decent breakfast mild cough but otherwise feels ok although he ate breakfast he did not recall having a meal Review of Systems Review of Systems: gen - denies fevers or chills cv - no chest pain pulm - no dyspnea GI - no vomiting or diarrhea Physical Exam Physical Exam: gen - NAD, irritated and mildly confused neck - no JVD heart -RRR, s1 s2 lungs - minimal end-exp wheeze b/l abd - soft NT ext - no edema, pulses 2+ b/l neuro - R arm weakness about 3/5; R leg weakness about 4/5; LUE/LLE 5/5; slight right facial droop Results & Data Results & Data ([facility]) Vital Signs (Past 12 Hours) Vital Signs Temp Pulse Pulse Pulse Resp BP Pulse Ox 04/09/22 20:00 04/09/22 19:46 36.6 C 78 20 110/63 98 04/09/22 16:00 36.7 C 80 20 107/67 98 04/09/22 18:00 04/09/22 16:00 81 04/09/22 18:18 04/09/22 13:57 93 H 20 136/78 98 04/09/22 10:40 82 18 100/56 L 95 O2 Del Method O2 Del Method 04/09/22 20:00 Room Air 04/09/22 19:46 Room Air 04/09/22 16:00 Room Air 04/09/22 18:00 Room Air 04/09/22 16:00 04/09/22 18:18 Room Air 04/09/22 13:57 Room Air 04/09/22 10:40 Room Air Laboratory Results Laboratory Results - last 24 hr 04/08/22 04/09/22 21:04 05:58 PT 47.4 H INR 4.8 H Urine Color Yellow Urine Appearance Clear Urine pH 6.0 Ur Specific [place] > 1.045 H Urine Protein Trace H Urine Glucose (UA) Negative Urine Ketones Trace H Urine Blood Negative Urine Nitrite Negative Urine Bilirubin Negative Urine Urobilinogen Negative Ur Leukocyte Esterase Negative Urine WBC (Auto) 1-5 Urine RBC (Auto) 0-4 U Hyaline Cast (Auto) 0 U Epithel Cells (Auto) 0-5 Urine Bacteria (Auto) Negative PG Care Time/CCT Total # of Minutes Spent Total Time Spent with Patient: Total time spent is greater than 50% in coordination of care (as documented) at patient's floor/unit and/or counseling patient: Coding Level of Care Code 31421 Subseq Obs Care Lvl 3 Diagnoses Influenza A J10.1 Elevated INR R79.1 Hypokalemia E87.6 Acute abdominal pain in right lower quadrant R10.31 Hyperlipidemia E78.5 Esophagitis K20.9 Dizziness R42 Paroxysmal atrial fibrillation I48.0 Ischemic cardiomyopathy I25.5 CAD (coronary artery disease) I25.10 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
[2022-04-10] MEDS: guaiFENesin SUGAR FREE 200 MG/10 ML UDC PO SCH ×4 (01:30→18:25)
[2022-04-10 06:57] LABS: Basophils # (auto) 0.02 K/uL (0-0.2); Basophils % (auto) 0.4 %; Eosinophils % (auto) 4.2 %; Hematocrit (blood only) 35.5 % (40.1-51.0); Hemoglobin 12.5 g/dl (14.0-18.0); Immature Granulocytes # (auto) 0.01 K/uL (0.00-0.02); Immature Granulocytes % (auto) 0.2 %; Lymphocytes # (auto) 1.05 K/uL (1.2-3.4); Lymphocytes % (auto) 21.9 %; Mean Corpuscular Hemoglobin 32.6 pg (25.0-34.0); Mean Corpuscular Hgb Conc 35.2 g/dL (32.0-36.0); Mean Corpuscular Volume 92.7 fL (80.0-100.0); Mean Platelet Volume 10.7 fL (9.4-12.4); Monocytes # (auto) 0.91 K/uL (0.24-0.82); Neutrophils % (auto) 54.3 %; Platelet Count 197 K/uL (130-400); RDW Standard Deviation 46.4 fL (36.4-46.3); Red Blood Count 3.83 M/uL (4.63-6.08); White Blood Count 4.79 K/ul (4.8-10.8)
[2022-04-10 07:14] LABS: Prothrombin Time 39.5 Seconds (9.0-12.0)
[2022-04-10 07:39] LABS: Thyroid Stimulating Hormone < 0.010 uIu/ml (0.300-4.500)
[2022-04-10 07:57] LABS: BUN Creatinine Ratio 13.8 (10-20); Calcium 8.8 mg/dl (8.5-10.1); Creatinine Clr Calc Pharmacy 80.8 ml/min; Est GFR (African American) 104.2 ml/min; Est GFR (Non-African American) 89.9 ml/min; Potassium 3.7 mmol/L (3.5-5.1)
[2022-04-10] MEDS: OSELTAMIVIR PHOSPHATE 75 MG CAP PO SCH ×2 (07:57→21:07)
[2022-04-10] MEDS: MECLIZINE HCL 25 MG TAB PO SCH ×3 (07:58→21:07)
[2022-04-10] MEDS: METOPROLOL SUCC 25MG EXT REL TAB PO SCH (07:58)
[2022-04-10] MEDS: VALSARTAN/SACUBITRIL 26/24MG TAB PO SCH (07:58)
[2022-04-10] MEDS: ASPIRIN 81 MG ECTAB PO SCH (07:58)
[2022-04-10] MEDS: FAMOTIDINE 20 MG TAB PO SCH (07:58)
[2022-04-10] MEDS: PANTOprazole 40 MG TAB PO SCH ×2 (07:59→21:08)
[2022-04-10 08:10] LABS: T4 Free Thyroxine 2.77 ng/dl (0.61-1.60)
[2022-04-10] MEDS ORDERED: SODIUM CHLORIDE 0.9% 500 ML IV SCH (14:15)
--- NOTE | 2022-04-10 20:48 | Hospitalist Progress Note ---
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 Marina day of admission s/p 5mg vit K x 1 daily INR while here INR only 4 today cont to hold coumadin will need f/u with Dr Marina in 2-3 days post-d/c (4) Hypokalemia: Plan: replaced resolved (5) Acute abdominal pain in right lower quadrant: Plan: resolved u/a not suspicious for UTI CT abd/pelvis without acute findings etiology? 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: Plan: Apical thrombus detected on echo while at [facility] [place] L MCA stroke just a few weeks ago During that stay he also had PAF by report Now on coumadin with amiodarone INR 4 - hold coumadin, repeat INR in am He 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 (13) Acute metabolic encephalopathy: Plan: 2nd to influenza A improved today supportive care Plan patient not eating/drinking - looks volume contracted - give 500cc of NS today repeat labs am PT evaluation pending spoke with pt's - update given re: flu, hyperthyroidism, etc she was unaware about apical thrombus detected while at [facility] discussed plan of care discharge will hinge on PT eval, oral intake, etc Admission and Anticipated Discharge Date Admission Date: April 10, 2022 Subjective more awake/alert today with that said he doesn't know why he is here or what brought him here he does know he is in the hospital eating/drinking is poor mild cough and fatigue - no worse than yesterday tele wnl overnight Review of Systems Review of Systems: gen - feels "ok" - poor appetite, however; no fevers or chills musculo - denies myalgias CV - no cp, no orthopnea pulm - mild cough; no dyspnea; no sputum GI - no recurrent abd pain; no nausea or emesis Physical Exam 2 Physical Exam: gen - NAD, looks better today; less confused, more oriented mouth - MM still dry neck - no JVD; ?small nodule L thyroid? heart -RRR, s1 s2 lungs - CTA b/l; no rales or wheeze abd - soft NT ND BS+ ext - no edema, pulses 2+ b/l neuro - R arm weakness about 3/5; R leg weakness about 4/5; LUE/LLE 5/5; slight right facial droop; speech fluent/clear Results & Data Results & Data ([facility]) Vital Signs (Past 12 Hours) Vital Signs Temp Pulse Pulse Resp BP Pulse Ox O2 Del Method 04/10/22 20:12 36.6 C 69 18 96/58 L 98 Room Air 04/10/22 15:02 36.4 C L 65 17 99/61 L 100 Room Air 04/10/22 14:48 66 04/10/22 11:46 37.0 C 63 18 100/62 98 Room Air 04/10/22 09:48 Room Air Laboratory Results Laboratory Results - last 24 hr 04/10/22 04/10/22 04/10/22 06:32 06:32 06:32 WBC 4.79 L RBC 3.83 L Hgb 12.5 L Hct 35.5 L MCV 92.7 MCH 32.6 MCHC 35.2 RDW Std Deviation 46.4 H RDW Coeff of Roxy 14.0 Plt Count 197 MPV 10.7 Immature Gran % (Auto) 0.2 Neut % (Auto) 54.3 Lymph % (Auto) 21.9 Trigg % (Auto) 19.0 Eos % (Auto) 4.2 Baso % (Auto) 0.4 Neut # (Auto) 2.60 Lymph # (Auto) 1.05 L Trigg # (Auto) 0.91 H Eos # (Auto) 0.20 Baso # (Auto) 0.02 Immature Gran # (Auto) 0.01 PT INR Sodium 138 Potassium 3.7 Chloride 109 H Carbon Dioxide 22 Anion Gap 7 BUN 12 Creatinine 0.87 Est Cr Clr Drug Dosing 80.8 Est GFR ( Amer) 104.2 Est GFR (Non-Af Amer) 89.9 BUN/Creatinine Ratio 13.8 Glucose 96 Calcium 8.8 TSH < 0.010 L Free T4 2.77 H 04/10/22 06:32 WBC RBC Hgb Hct MCV MCH MCHC RDW Std Deviation RDW Coeff of Roxy Plt Count MPV Immature Gran % (Auto) Neut % (Auto) Lymph % (Auto) Trigg % (Auto) Eos % (Auto) Baso % (Auto) Neut # (Auto) Lymph # (Auto) Trigg # (Auto) Eos # (Auto) Baso # (Auto) Immature Gran # (Auto) PT 39.5 H INR 4.0 H Sodium Potassium Chloride Carbon Dioxide Anion Gap BUN Creatinine Est Cr Clr Drug Dosing Est GFR ( Amer) Est GFR (Non-Af Amer) BUN/Creatinine Ratio Glucose Calcium TSH Free T4 PG Care Time/CCT Total # of Minutes Spent Total Time Spent with Patient: Total time spent is greater than 50% in coordination of care (as documented) at patient's floor/unit and/or counseling patient: Coding Level of Care Code 31098 Subseq Hosp Care Lvl 3 Diagnoses Influenza A J10.1 Hyperthyroidism E05.90 Elevated INR R79.1 Hypokalemia E87.6 Acute abdominal pain in right lower quadrant R10.31 Hyperlipidemia E78.5 Esophagitis K20.9 Dizziness R42 Paroxysmal atrial fibrillation I48.0 Ischemic cardiomyopathy I25.5 CAD (coronary artery disease) I25.10 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
[2022-04-10] MEDS: AMIODARONE 200 MG TAB PO SCH (21:06)
[2022-04-10] MEDS: ROSUVASTATIN CALCIUM 5 MG TAB PO SCH (21:09)
[2022-04-11] MEDS: guaiFENesin SUGAR FREE 200 MG/10 ML UDC PO SCH ×4 (01:44→21:37)
[2022-04-11] MEDS: OSELTAMIVIR PHOSPHATE 75 MG CAP PO SCH ×2 (08:08→21:41)
[2022-04-11] MEDS: MECLIZINE HCL 25 MG TAB PO SCH ×3 (08:08→21:39)
[2022-04-11] MEDS: ASPIRIN 81 MG ECTAB PO SCH (08:09)
[2022-04-11] MEDS: FAMOTIDINE 20 MG TAB PO SCH (08:09)
[2022-04-11] MEDS: PANTOprazole 40 MG TAB PO SCH ×2 (08:09→21:42)
[2022-04-11] MEDS: METOPROLOL SUCC 25MG EXT REL TAB PO SCH (08:09)
[2022-04-11 08:30] LABS: Basophils # (auto) 0.01 K/uL (0-0.2); Basophils % (auto) 0.2 %; Eosinophils # (auto) 0.21 K/uL (0-0.50); Eosinophils % (auto) 4.8 %; Hematocrit (blood only) 40.2 % (40.1-51.0); Immature Granulocytes # (auto) 0.01 K/uL (0.00-0.02); Immature Granulocytes % (auto) 0.2 %; Lymphocytes # (auto) 1.11 K/uL (1.2-3.4); Lymphocytes % (auto) 25.2 %; Mean Corpuscular Hgb Conc 34.8 g/dL (32.0-36.0); Mean Corpuscular Volume 91.8 fL (80.0-100.0); Mean Platelet Volume 10.6 fL (9.4-12.4); Monocytes # (auto) 0.73 K/uL (0.24-0.82); Monocytes % (auto) 16.6 %; Neutrophils # (auto) 2.33 K/uL (1.4-6.5); Platelet Count 270 K/uL (130-400); RDW Coefficient of Variation 13.8 % (11.5-14.5); Red Blood Count 4.38 M/uL (4.63-6.08)
[2022-04-11 08:47] LABS: INR 2.8 (0.9-1.1); Prothrombin Time 28.6 Seconds (9.0-12.0)
[2022-04-11 08:51] LABS: BUN Creatinine Ratio 10.1 (10-20); Calcium 9.1 mg/dl (8.5-10.1); Est GFR (African American) 91.6 ml/min
--- NOTE | 2022-04-11 09:24 | Hospitalist Progress Note ---
Date of Service April 11, 2022 Assessment & Plan (1) Influenza A: Plan: Continue tamiflu x 5 days - day #4 today supportive care no evidence of complicating bacterial infection/pneumonia overall improved Continue droplet precautions (2) Hyperthyroidism: Plan: TSH undetectable FT4 elevated Spoke informally with Dr Siddiqi (endocrinology),via messaging re: this issue This is amiodarone induced thyrotoxicosis There are 2 types -- type 1 which responds to methimazole, and type 2 which is Rx with prednisone literature suggests you can have mix of type 1/type 2 as well Endocrinology recommended to treat with both methimazole 10mg TID AND prednisone 10mg TID Will need endo f/u post-d/c in 3 weeks Endocrinology also suggested Thyroid U/S doppler to assess vascular flow to thyroid Dr Nino with cardiology yesterday - stopping amiodarone is not advisable at this time; has had [id number]-ep-[id number] a.fib in the past (3) Elevated INR: Plan: Noted to be 7.9 during his Anticoagulation clinic visit with Dr. Marina day of admission s/p 5mg vit K x 1 daily INR while here INR 2.8 today cont to hold coumadin will need f/u with Dr Marina in 2-3 days post-d/c (4) Hypokalemia: Plan: replaced resolved (5) Acute abdominal pain in right lower quadrant: Plan: resolved u/a not suspicious for UTI CT abd/pelvis without acute findings etiology? 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: Plan: Apical thrombus detected on [place] [facility] [place] MCA [place] just a few weeks ago During that stay he also had PAF by report Now on coumadin with amiodarone INR 2.8 -continue to hold coumadin, repeat INR in am He 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 (13) Acute metabolic encephalopathy: Plan: 2nd to influenza A improved today supportive care Plan patient not eating/drinking - looks volume contracted - give 500cc of NS today repeat labs am PT evaluation pending spoke with pt's - update given re: flu, hyperthyroidism, etc she was unaware about apical thrombus detected while at [facility] discussed plan of care Increased diet ot easy to chew with aspiration precautions discharge will hinge on PT eval, oral intake, etc Admission and Anticipated Discharge Date Admission Date: April 10, 2022 Subjective Patient was awake in bed. He is requesting to try more food today. He refuses to do the moist and minced diet. His diet was advanced to easy to chew with aspiration precautions and nursing to watch closely for any signs of aspiration. He denies any complaints today other than he wants different foods to eat. Review of Systems Constitutional: no fever, no chills and no anorexia Respiratory: no cough, no chest congestion, no dyspnea and no hemoptysis Cardiovascular: no chest pain, no dyspnea at rest, no syncope and no calf pain Gastrointestinal: no abdominal pain, no nausea, no vomiting, no dysphagia and no change in stools Integumentary: no rash, no lesions and no new lesions Psychiatric: no change in appetite Physical Exam Constitutional: WD/WN, vitals as above Neck: trachea midline, no thyromegaly Respiratory: normal respiratory effort, lungs clear to auscultation Cardiovascular: RRR, no murmur, no edema Neurologic: awake; not confused mild right arm weakness compared to left and also right leg compared to left Results & Data Results & Data ([facility]) Vital Signs (Past 12 Hours) Vital Signs Temp Pulse Pulse Resp BP Pulse Ox O2 Del Method 04/11/22 08:21 36.5 C 69 18 108/65 95 Room Air 04/11/22 07:00 64 04/11/22 00:00 65 04/11/22 01:45 36.3 C L 81 18 104/69 97 Room Air 04/10/22 22:20 36.5 C 65 18 99/60 L 97 Room Air Laboratory Results Abnormal lab results 04/11/22 04/11/22 04/11/22 Range/Units 08:06 08:06 08:06 WBC 4.40 L (4.8-10.8) K/ul RBC 4.38 L (4.63-6.08) M/uL Lymph # (Auto) 1.11 L (1.2-3.4) K/uL PT 28.6 H (9.0-12.0) Seconds INR 2.8 H (0.9-1.1) Glucose 121 H (70-99(Fasting)) mg/dl Diagnostic Findings Thyroid Ultrasound 04/11/22 10:15 ULTRASOUND OF THE THYROID GLAND CLINICAL HISTORY: Hyperthyroidism. COMPARISON STUDY: CT exam of the neck dated 03/01/2022. TECHNIQUE: Real-time, grayscale, and color flow sonography of the thyroid gland is performed utilizing a high-frequency linear transducer. Images are reviewed in the transverse and longitudinal planes. FINDINGS: Right lobe: The right lobe of the thyroid gland is normal in size and slightly heterogeneous in echotexture, measuring 4.2 x 2.3 x 2.0 cm. No hyperemia is shown on color imaging. Left lobe: The left lobe of the thyroid gland is normal in size and slightly heterogeneous in echotexture, measuring 4.2 x 1.9 x 1.7 cm. No hyperemia is shown on color imaging. Isthmus: The thyroid isthmus is normal in appearance and measures 0.4 cm in AP diameter. IMPRESSION: 1. Slightly heterogeneous thyroid gland with no thyroid lesion identified. 2. There is no hyperemia seen on color imaging. ACT 112: Negative or not required by law. Electronically signed by: Wellington Min M.D. 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
[2022-04-11] MEDS: predniSONE 10 MG TABLET PO SCH ×2 (13:27→21:42)
[2022-04-11] MEDS: methIMAzole 5 MG TABLET PO SCH ×2 (14:38→21:40)
--- NOTE | 2022-04-11 16:04 | Ultrasound Report ---
ULTRASOUND OF THE THYROID GLAND CLINICAL HISTORY: Hyperthyroidism. COMPARISON STUDY: CT exam of the neck dated 03/01/2022. TECHNIQUE: Real-time, grayscale, and color flow sonography of the thyroid gland is performed utilizin g a high-frequency linear transducer. Images are reviewed in the transverse and longitudinal planes. FINDINGS: Right lobe: The right lobe of the thyroid gland is normal in size and slightly heterogeneous in echot exture, measuring 4.2 x 2.3 x 2.0 cm. No hyperemia is shown on color imaging. Left lobe: The left lobe of the thyroid gland is normal in size and slightly heterogeneous in echotex ture, measuring 4.2 x 1.9 x 1.7 cm. No hyperemia is shown on color imaging. Isthmus: The thyroid isthmus is normal in appearance and measures 0.4 cm in AP diameter. IMPRESSION: 1. Slightly heterogeneous thyroid gland with no thyroid lesion identified. 2. There is no hyperemia seen on color imaging. ACT 112: Negative or not required by law. Electronically signed by: Wellington Min M.D. 04/11/2022 4:02 PM
[2022-04-11] MEDS: AMIODARONE 200 MG TAB PO SCH (21:38)
[2022-04-11] MEDS: ROSUVASTATIN CALCIUM 5 MG TAB PO SCH (21:43)
[2022-04-12] MEDS: guaiFENesin SUGAR FREE 200 MG/10 ML UDC PO SCH ×4 (02:04→18:07)
[2022-04-12 06:35] LABS: INR 2.3 (0.9-1.1); Prothrombin Time 23.4 Seconds (9.0-12.0)
[2022-04-12] MEDS: ASPIRIN 81 MG ECTAB PO SCH (08:49)
[2022-04-12] MEDS: FAMOTIDINE 20 MG TAB PO SCH (08:49)
[2022-04-12] MEDS: PANTOprazole 40 MG TAB PO SCH ×2 (08:50→20:14)
[2022-04-12] MEDS: predniSONE 10 MG TABLET PO SCH ×3 (08:50→20:16)
[2022-04-12] MEDS: METOPROLOL SUCC 25MG EXT REL TAB PO SCH (08:50)
[2022-04-12] MEDS: MECLIZINE HCL 25 MG TAB PO SCH ×3 (08:51→20:13)
[2022-04-12] MEDS: OSELTAMIVIR PHOSPHATE 75 MG CAP PO SCH ×2 (08:51→20:15)
[2022-04-12] MEDS: methIMAzole 5 MG TABLET PO SCH ×3 (08:51→20:15)
--- NOTE | 2022-04-12 13:29 | Hospitalist Progress Note ---
Date of Service April 12, 2022 Assessment & Plan (1) Influenza A: Plan: Continue tamiflu x 5 days - day #4 today supportive care no evidence of complicating bacterial infection/pneumonia overall improved Continue droplet precautions (2) Hyperthyroidism: Plan: TSH undetectable FT4 elevated Spoke with Dr Siddiqi (endocrinology),via messaging and the phone last evening re: this issue 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 There are 2 types -- type 1 which responds to methimazole, and type 2 which is Rx with prednisone literature suggests you can also have mix of type 1/type 2 as well Endocrinology recommended to treat with both methimazole 10mg TID AND prednisone 10mg TID Will need endo f/u post-d/c in 3 weeks Endocrinology also suggested Thyroid U/S doppler to assess vascular flow to thyroid which revealed no hyperemia (which may correlate more to type 2) Dr Nino talked cardiology - stopping amiodarone is not advisable at this time; has had esxrznlha-[id number] a.fib in the past (3) Elevated INR: Plan: Noted to be 7.9 during his Anticoagulation clinic visit with Dr. Marina day of admission s/p 5mg vit K x 1 daily INR while here INR 2.[address] Marina over the phone today and will restart Coumadin today at 1mg Will alternate 1mg with 0.5 mg Patient will continue to need daily INRs will need f/u with Dr Marina in 2-3 days post-d/c (4) Hypokalemia: Plan: replaced resolved (5) Acute abdominal pain in right lower quadrant: Plan: resolved u/a not suspicious for UTI CT abd/pelvis without acute findings etiology? 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: Plan: Apical thrombus detected on echo while at [facility] [place] for his L MCA stroke just a few weeks ago During that stay he also had PAF by report Now on coumadin with amiodarone INR today 2.3 and restarted coumadin at 1mg today and will alternate with 0.5 mg He 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 (13) Acute metabolic encephalopathy: Plan: 2nd to influenza A improved today supportive care Plan PT unable to evaluate today spoke with pt's ex today- update given re: flu, hyperthyroidism, etc discussed patient will need daily INR levels and will need to follow up in anticoagulation clinic 2-3 days after discharge discussed plan of care Continue easy to chew diet with aspiration precautions discharge will hinge on PT eval, oral intake, INR levels, etc Admission and Anticipated Discharge Date Admission Date: April 10, 2022 Subjective Patient was awake sitting up in wheelchair. He has no complaints today although he had a small amount of emesis on his tray. He said he just vomited a little. He denied any abdominal pain or nausea and stated he did not need any Zofran. He denies any coughing. His diet was advanced to easy to chew yesterday and per nursing he has been tolerating with no signs of aspiration or choking. Review of Systems Constitutional: no fever, no chills and no anorexia Respiratory: no cough, no chest congestion, no dyspnea and no hemoptysis Cardiovascular: no chest pain, no dyspnea at rest, no syncope and no calf pain Gastrointestinal: no abdominal pain, no nausea, no vomiting, no dysphagia and no change in stools Integumentary: no rash, no lesions and no new lesions Psychiatric: no change in appetite Physical Exam Constitutional: WD/WN, vitals as above Neck: trachea midline, no thyromegaly Respiratory: normal respiratory effort, lungs clear to auscultation Cardiovascular: RRR, no murmur, no edema Gastrointestinal (Abdomen): normal bowel sounds, soft, nontender, no hepatosplenomegaly Neurologic: awake; not confused Results & Data Results & Data ([facility]) Vital Signs (Past 12 Hours) Vital Signs Temp Pulse Pulse Resp BP Pulse Ox O2 Del Method 04/12/22 11:24 37 C 74 20 111/64 97 Room Air 04/12/22 07:52 36.6 C 72 20 122/70 95 Room Air 04/12/22 07:12 82 04/12/22 04:00 36.6 C 78 18 126/69 95 Room Air Laboratory Results Abnormal lab results 04/12/22 Range/Units 05:22 PT 23.4 H (9.0-12.0) Seconds INR 2.3 H (0.9-1.1) PG Care Time/CCT Total # of Minutes Spent Total Time Spent with Patient: Total time spent is greater than 50% in coordination of care (as documented) at patient's floor/unit and/or counseling patient: Coding Level of Care Code 59684 Subseq Hosp Care Lvl 3 Diagnoses Influenza A J10.1 Hyperthyroidism E05.90 Elevated INR R79.1 Hypokalemia E87.6 Acute abdominal pain in right lower quadrant R10.31 Hyperlipidemia E78.5 Esophagitis K20.9 Dizziness R42 Paroxysmal atrial fibrillation I48.0 Ischemic cardiomyopathy I25.5 CAD (coronary artery disease) I25.10 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 Time Spent (min) 20
[2022-04-12] MEDS: WARFARIN SOD 1 MG TAB PO SCH (16:20)
[2022-04-12] MEDS: AMIODARONE 200 MG TAB PO SCH (20:12)
[2022-04-12] MEDS: ROSUVASTATIN CALCIUM 5 MG TAB PO SCH (20:17)
[2022-04-13] MEDS: guaiFENesin SUGAR FREE 200 MG/10 ML UDC PO SCH ×5 (01:18→20:11)
[2022-04-13 07:03] LABS: INR 1.9 (0.9-1.1); Prothrombin Time 19.3 Seconds (9.0-12.0)
[2022-04-13] MEDS: OSELTAMIVIR PHOSPHATE 75 MG CAP PO SCH (10:04)
[2022-04-13] MEDS: predniSONE 10 MG TABLET PO SCH ×3 (10:04→20:12)
[2022-04-13] MEDS: PANTOprazole 40 MG TAB PO SCH ×2 (10:04→20:12)
[2022-04-13] MEDS: METOPROLOL SUCC 25MG EXT REL TAB PO SCH (10:04)
[2022-04-13] MEDS: ASPIRIN 81 MG ECTAB PO SCH (10:04)
[2022-04-13] MEDS: methIMAzole 5 MG TABLET PO SCH ×3 (10:06→20:11)
[2022-04-13] MEDS: FAMOTIDINE 20 MG TAB PO SCH (10:06)
[2022-04-13] MEDS: MECLIZINE HCL 25 MG TAB PO SCH ×3 (10:07→20:11)
--- NOTE | 2022-04-13 10:58 | Hospitalist Progress Note ---
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 There are 2 types -- type 1 which responds to methimazole, and type 2 which is Rx with prednisone literature suggests you can also have mix of type 1/type 2 as well Endocrinology recommended to treat with both methimazole 10mg TID AND prednisone 10mg TID Will need endo f/u post-d/c in 3 weeks Endocrinology also suggested Thyroid U/S doppler to assess vascular flow to thyroid which revealed no hyperemia (which may correlate more to type 2) Dr Nino talked cardiology - stopping amiodarone is not advisable at this time; has had [id number] a.fib in the past (3) Elevated INR: Plan: Noted to be 7.9 during his Anticoagulation clinic visit with Dr. Marina day of admission s/p 5mg vit K x 1 daily INR while here INR 1.[address] Marina over the phone today and restarted Coumadin yesterday at 1mg Per Dr Marina to have 2mg tonight Patient will continue to need daily INRs will need f/u with Dr Marina in 2-3 days post-d/c (4) Hypokalemia: Plan: replaced resolved (5) Acute abdominal pain in right lower quadrant: Plan: resolved u/a not suspicious for UTI CT abd/pelvis without acute findings etiology? 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: Plan: Apical thrombus detected on echo while at [facility] for his L MCA stroke just a few weeks ago During that stay he also had PAF by report Now on coumadin with amiodarone INR today 1.9 and restarted coumadin at 1mg yesterday and today 2mg as per Dr Marina He 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 (13) Acute metabolic encephalopathy: Plan: Resolved Was likely 2nd to influenza A supportive care Continue to monitor Plan spoke with pt's ex yesterday- update given re: flu, hyperthyroidism, etc discussed patient will need daily INR levels and will need to follow up in anticoagulation clinic 2-3 days after discharge discussed plan of care Continue easy to chew diet with aspiration precautions discharge will hinge on PT eval, oral intake, INR levels, etc Admission and Anticipated Discharge Date Admission Date: April 10, 2022 Supervising Physician Co-Signing Physician Notes PA Supervision Note: I did not personally see or examine the patient. I verified all luna points and agree with GHULAM Pino with the following exceptions and/or additions: none. Continue tx for hyperthyroidism and influenza, with eval by PT to determine dispo planning. Labs, Rads, and ECG reviewed Subjective Patient is awake in bed and states he wants to go home today. Per conversations with Dr Marina patient is to have daily PT/INR checks for the next several days and with the holiday weekend and his questionable home life, it is in his best interest to stay in the hospital to have close observation of the labs while restarting the coumadin. Also per Dr Marina patient to have 2 mg of coumadin today. Originally he was to have 1mg (yesterday) alternating with 0.5 mg Todays dose of 0.5 mg held and changed to 2mg at 1600. Patient has no complaints today. Review of Systems Constitutional: no fever, no chills and no anorexia Respiratory: no cough, no chest congestion, no dyspnea and no hemoptysis Cardiovascular: no chest pain, no dyspnea at rest, no syncope and no calf pain Gastrointestinal: no abdominal pain, no nausea, no vomiting, no dysphagia and no change in stools Integumentary: no rash, no lesions and no new lesions Neurologic: no falls, no seizure-like activity, no headache(s) and no confusion right sided residual weakness Psychiatric: no change in appetite Physical Exam Constitutional: WD/WN, vitals as above Neck: trachea midline, no thyromegaly Respiratory: normal respiratory effort, lungs clear to auscultation Cardiovascular: RRR, no murmur, no edema Gastrointestinal (Abdomen): normal bowel sounds, soft, nontender, no hepatosplenomegaly Neurologic: awake; not confused right sided residual weakness Psychiatric: A+Ox3, euthymic affect Results & Data Results & Data ([facility]) Vital Signs (Past 12 Hours) Vital Signs Temp Pulse Pulse Resp BP BP Pulse Ox 04/13/22 08:06 36.8 C 82 17 133/64 97 04/13/22 02:57 36.7 C 68 18 110/65 97 04/12/22 23:52 76 04/12/22 23:51 82 O2 Del Method 04/13/22 08:06 Room Air 04/13/22 02:57 Room Air 04/12/22 23:52 04/12/22 23:51 Laboratory Results Abnormal lab results 04/13/22 Range/Units 06:16 PT 19.3 H (9.0-12.0) Seconds INR 1.9 H (0.9-1.1) PG Care Time/CCT Total # of Minutes Spent Total Time Spent with Patient: Total time spent is greater than 50% in coordination of care (as documented) at patient's floor/unit and/or counseling patient: Coding Level of Care Code 75139 Subseq Hosp Care Lvl 2 Medical Decision Making Low Complexity Diagnoses Influenza A J10.1 Hyperthyroidism E05.90 Elevated INR R79.1 Hypokalemia E87.6 Acute abdominal pain in right lower quadrant R10.31 Hyperlipidemia E78.5 Esophagitis K20.9 Dizziness R42 Paroxysmal atrial fibrillation I48.0 Ischemic cardiomyopathy I25.5 CAD (coronary artery disease) I25.10 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
[2022-04-13] MEDS ORDERED: WARFARIN SOD 0.5 MG TAB PO SCH (16:00)
[2022-04-13] MEDS ORDERED: WARFARIN SOD 2 MG TAB PO ONE (16:00)
[2022-04-13] MEDS: AMIODARONE 200 MG TAB PO SCH (20:11)
[2022-04-13] MEDS: ROSUVASTATIN CALCIUM 5 MG TAB PO SCH (20:12)
[2022-04-14] MEDS: guaiFENesin SUGAR FREE 200 MG/10 ML UDC PO SCH ×5 (03:16→22:33)
[2022-04-14 07:08] LABS: INR 2.1 (0.9-1.1); Prothrombin Time 21.1 Seconds (9.0-12.0)
--- NOTE | 2022-04-14 08:24 | Hospitalist Progress Note ---
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 There are 2 types -- type 1 which responds to methimazole, and type 2 which is Rx with prednisone literature suggests you can also have mix of type 1/type 2 as well Endocrinology recommended to treat with both methimazole 10mg TID AND prednisone 10mg TID Will need endo f/u post-d/c in 3 weeks Endocrinology also suggested Thyroid U/S doppler to assess vascular flow to thyroid which revealed no hyperemia (which may correlate more to type 2) Dr Nino talked cardiology - stopping amiodarone is not advisable at this time; has had [id number] a.fib in the past Patient will need to continue the Methimazole 10mg TID and Prednisone 10mg TID and follow up with Dr Siddiqi in 2 weeks (3) Elevated INR: Plan: Noted to be 7.9 during his Anticoagulation clinic visit with Dr. Marina day of admission s/p 5mg vit K x 1 daily INR while here INR 2.[address] Marina this AM via messaging and patient to have 1mg today with repeat INR in AM Patient will continue to need daily INRs Patient has appointment at the anticoagulation clinic tomorrow at 11:00 Will try and discharge patient before 11 AM to make it to his appt 04/12/22 - Coumadin 1mg 04/13/22 - Coumadin 2mg 04/14/21 - Coumadin 1mg (4) Hypokalemia: Plan: replaced resolved (5) Acute abdominal pain in right lower quadrant: Plan: resolved u/a not suspicious for UTI CT abd/pelvis without acute findings etiology? 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: Plan: Apical thrombus detected on echo while at [facility] for his L MCA stroke just a few weeks ago During that stay he also had PAF by report Now on coumadin with amiodarone He 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 (13) Acute metabolic encephalopathy: Plan: Resolved Was likely 2nd to influenza A supportive care Continue to monitor Plan spoke with pt's ex daily- update given re: flu, hyperthyroidism, etc discussed patient will need daily INR levels and will need to follow up in anticoagulation clinic tomorrow at 11:00 discussed plan of care Continue easy to chew diet with aspiration precautions discharge will hinge on PT eval, oral intake, INR levels, etc Admission and Anticipated Discharge Date Admission Date: April 10, 2022 Supervising Physician Co-Signing Physician Notes PA Supervision Note: I did not personally see or examine the patient. I verified all luna points and agree with GHULAM Pino with the following exceptions and/or additions: none. Continue tx for hyperthyroidism and influenza supportive care. Plan for discharge tomorrow with appt with Dr. Marina tomorrow. Follow up with Endocrine in 2 weeks. Labs, Rads, and ECG reviewed Subjective Patient is awake in bed watching TV. He is anxious and wanting to be discharged to home. Hopefully to discharge patient tomorrow morning. He also has an appointment with Dr Marina tomorrow at 11:00. He denies any complaints today except that he wanted to go home today. His ex stated the car was broke and they had no way to pick him up today Review of Systems Constitutional: no fever, no chills and no anorexia Respiratory: no cough, no chest congestion, no dyspnea and no hemoptysis Cardiovascular: no chest pain, no dyspnea at rest, no syncope and no calf pain Gastrointestinal: no abdominal pain, no nausea, no vomiting, no dysphagia and no change in stools Integumentary: no rash, no lesions and no new lesions Neurologic: no falls, no seizure-like activity, no headache(s) and no confusion right sided residual weakness Psychiatric: no change in appetite Physical Exam Constitutional: WD/WN, vitals as above Neck: trachea midline, no thyromegaly Respiratory: normal respiratory effort, lungs clear to auscultation Cardiovascular: RRR, no murmur, no edema Gastrointestinal (Abdomen): normal bowel sounds, soft, nontender, no hepatosplenomegaly Neurologic: awake; not confused Psychiatric: A+Ox3, euthymic affect Results & Data Results & Data ([facility]) Vital Signs (Past 12 Hours) Vital Signs Temp Pulse Pulse Resp BP BP Pulse Ox 04/14/22 08:16 36.6 C 76 18 127/69 99 04/14/22 07:43 65 04/14/22 03:44 36.5 C 87 18 109/64 94 04/14/22 03:00 36.5 C 80 18 127/73 97 04/13/22 22:31 72 04/13/22 22:47 36.8 C 75 18 123/70 96 O2 Del Method 04/14/22 08:16 Room Air 04/14/22 07:43 04/14/22 03:44 Room Air 04/14/22 03:00 Room Air 04/13/22 22:31 04/13/22 22:47 Room Air Laboratory Results Abnormal lab results 04/14/22 Range/Units 06:09 PT 21.1 H (9.0-12.0) Seconds INR 2.1 H (0.9-1.1) PG Care Time/CCT Total # of Minutes Spent Total Time Spent with Patient: Total time spent is greater than 50% in coordination of care (as documented) at patient's floor/unit and/or counseling patient: Coding Level of Care Code 08297 Subseq Hosp Care Lvl 1 Diagnoses Influenza A J10.1 Hyperthyroidism E05.90 Elevated INR R79.1 Hypokalemia E87.6 Acute abdominal pain in right lower quadrant R10.31 Hyperlipidemia E78.5 Esophagitis K20.9 Dizziness R42 Paroxysmal atrial fibrillation I48.0 Ischemic cardiomyopathy I25.5 CAD (coronary artery disease) I25.10 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
[2022-04-14] MEDS: MECLIZINE HCL 25 MG TAB PO SCH ×3 (08:36→22:35)
[2022-04-14] MEDS: PANTOprazole 40 MG TAB PO SCH ×2 (08:37→22:35)
[2022-04-14] MEDS: METOPROLOL SUCC 25MG EXT REL TAB PO SCH (08:37)
[2022-04-14] MEDS: methIMAzole 5 MG TABLET PO SCH ×3 (08:37→22:34)
[2022-04-14] MEDS: FAMOTIDINE 20 MG TAB PO SCH (08:37)
[2022-04-14] MEDS: predniSONE 10 MG TABLET PO SCH ×3 (08:37→22:35)
[2022-04-14] MEDS: ASPIRIN 81 MG ECTAB PO SCH (09:31)
[2022-04-14] MEDS: WARFARIN SOD 1 MG TAB PO SCH (15:27)
[2022-04-14] MEDS ORDERED: MELATONIN 3 MG TAB PO PRN (20:35)
[2022-04-14] MEDS: ROSUVASTATIN CALCIUM 5 MG TAB PO SCH (22:34)
[2022-04-14] MEDS: AMIODARONE 200 MG TAB PO SCH (22:35)
[2022-04-15] MEDS: guaiFENesin SUGAR FREE 200 MG/10 ML UDC PO SCH (06:18)
[2022-04-15 08:46] LABS: INR 2.1 (0.9-1.1); Prothrombin Time 21.2 Seconds (9.0-12.0)
[2022-04-15] MEDS: ASPIRIN 81 MG ECTAB PO SCH (09:01)
[2022-04-15] MEDS: methIMAzole 5 MG TABLET PO SCH (09:01)
[2022-04-15] MEDS: METOPROLOL SUCC 25MG EXT REL TAB PO SCH (09:01)
[2022-04-15] MEDS: FAMOTIDINE 20 MG TAB PO SCH (09:01)
[2022-04-15] MEDS: MECLIZINE HCL 25 MG TAB PO SCH (09:01)
[2022-04-15] MEDS: predniSONE 10 MG TABLET PO SCH (09:01)
[2022-04-15] MEDS: PANTOprazole 40 MG TAB PO SCH (09:01)
--- NOTE | 2022-04-15 09:42 | Discharge Summary ---
Date of Service April 15, 2022 Admission HPI Per Admitting Provider Cholo is a 67 year old male with a PMH significant for afib, recent acute left MCA stroke diagnosed in the [facility] ED on 03/01/22, hyperlipidemia, obesity, GERD with esophagitis, CAD, VF arrest and anterior STEMI; PCI with stent to the LAD in 2020, HTN, and chronic pain syndrome who presented to the [facility] ED on 04/08/22 with a chief complaint of abdominal pain. In the ED the patient was found to be afebrile hemodynamically stable, and stable on RA. Labs were remarkable for a WBC of 4.5, hgb of 14.5 (stable from 14.9 as of 03/01), stable platelets, INR of 7.9, stable renal function and electrolytes (repeat potassium is pending), lipase of 14, repeat LFTs are pending due to being to hemolyzed on first draw, and influenza A positive. Chest xray was read as negative for acute processes. CT of the abdomen/pelvis with IV contrast showed "1. No bowel obstruction or bowel wall thickening. 2. Mild urinary bladder wall thickening with partial distention. Correlate with urinalysis. 3. There are three calcifications within the left renal sinus measuring up to 3 mm which are new from prior and may represent nonobstructing calculi within the renal pelvis. No ureteral calculi or hydronephrosis. 4. Mild patchy opacities within the basal left lower lobe are suspicious for an infectious or inflammatory pneumonitis.5. Additional findings as above.". The ED staff spoke with Dr. Marina of the anticoagulation clinic due to the elevated INR and recent complex medical history. Dr. Marina recommended observation with initiation or oral vitamin K now (given by ED staff) and INR monitoring in the AM, she will follow along. Prior to admission the patient was given 1L NSS bolus and 5 mg PO phytonadione. Per chart review, the patient was initially seen in the [facility] ED on 03/01/22 for his stroke-like symptoms, he was subsequently transferred to [facility] for further treatment, Per the discharge summary, the patient underwent successful mechanical thrombectomy with reperfusion. TTE during his admission showed a left apical thrombus. Prior to discharge to [facility] he was started on Warfarin and bridged with lovenox. Per review of the Anticoagulation clinic note from this am, the patient was reportedly discharged from [facility] approximately 6 days ago. He was seen this am by Dr. Marina in the anticoagulation clinic where he was found to have the INR of 7.9. Due to the patient's elevated INR and symptoms including abdominal pain and chest discomfort he was sent to the ED for further evaluation. At the time of my exam the patient was lying in bed in no acute distress. The patient was anxious and somewhat tearful at the start of my exam due to the steep decline in health over the past few months. He states that at the time of my exam he is having intermittent suprapubic pain. He confirms that this is the pain he reported in the anticoagulation clinic this morning. He states that it has been intermittent over the past week or so, describes the pain as cramping, is not associated with bowel movements or urination, and is a 5/10 at it's worst. He denies recent dysuria or hematuria since his discomfort started. He denies recent fevers/chills but notes a non-productive cough and some SOB over the past 3-4 days. He denies chest pain, upper abdominal pain, nausea, vomiting, diarrhea, melena, and recent falls. The patient has baseline right-sided weakness and also has word-finding difficulties since his stroke, this is often the cause of his frustration and anxiety. When asked, he states that he lives with his son and his son's family who help to care for him. He states that his son and his ex- are currently assisting him with keeping his medications organized. I spoke to him regarding code status, the patient wishes to be a Full Code and would want his ex-, Radha Dudley ([phone]) to make decisions for him if he could not make them himself. Winifred refer to Dr. Navas's attestation for any changes to the treatment plan. Admission Exam Per Admitting Provider General:In mild distress due to frustration/anxiety, stated age, chronically ill-appearing, non-toxic appearing HEENT:Normocephalic, atraumatic, no scleral icterus, pupils around round, symmetrical, and reactive to light, dry mucus membranes, trachea midline, no thyromegaly Chest/Pulm:No respiratory distress, symmetrical chest expansion, scattered expiratory wheezing throughout Cardiac:irregular rate and rhythm, no murmurs noted Abdomen:Negative for ascites and bruising, normoactive bowel sounds, soft, mildly tender to palpation over the suprapubic region but otherwise non-tender Musculoskeletal:Patient with baseline significant right upper and lower extremity, no acute trauma noted, patient with intact strength in the BL left upper and lower extremities Extremities:Radial, dorsalis pedis, and posterior tibial pulses are intact a nd symmetrical, no edema noted in the BL LE's Skin:Warm, dry, no rashes , lesions, or scars noted Neuro:Alert and oriented to person, place, month, year, and president, patient with baseline right-sided weakness and word-finding difficulties, otherwise no focal defects noted on exam Psych:Mild distress due to anxiety and frustration but polite and cooporative with exam Principal Diagnosis Influenza A Acute right lower quadrant abdominal pain Hypokalemia Atrial fibrillation Supratherapeutic INR Amiodarone Thyrotoxicosis Previous embolic stroke Discharge Exam Constitutional WD/WN, vitals as above Neck trachea midline, no thyromegaly Respiratory normal respiratory effort, lungs clear to auscultation Cardiovascular RRR, no murmur, no edema Gastrointestinal (Abdomen) normal bowel sounds, soft, nontender, no hepatosplenomegaly Neurologic awake; not confused weakness right upper extremity Psychiatric A+Ox3, euthymic affect Discharge Data Allergies Allergy/AdvReac Type Severity Reaction Status Date / Time bee venom protein (honey bee) Allergy Severe Anaphylaxis Verified 03/01/22 11:42 adhesive Allergy Intermediate REDDENED, Verified 03/01/22 11:42 ITCHY, IRRITATED SKIN-WITH WHITE TAPE strawberry Allergy Mild Rash, Verified 03/01/22 11:42 MIGRAINES-FEELS LIKE THE FLU celecoxib [From Celebrex] AdvReac Intermediate NAUSEA, Verified 03/01/22 11:42 HEADACHE, CHEST FELT TIGHT ezetimibe [From Zetia] AdvReac Intermediate MUSCLE Verified 03/01/22 11:42 ACHES onion AdvReac Mild Nausea,MIGRAINES-FELT Verified 03/01/22 11:42 LIKE THE FLU Consultations 04/08/22 14:36 ED Decision to Admit Stat Ordered Studies 04/08/22 11:00 CT abd pelvis IV con only Stat 04/11/22 10:15 US thyroid Routine Hospital Course (1) Influenza A: Finished tamiflu x 5 days supportive care no evidence of complicating bacterial infection/pneumonia overall improved and doing well (2) Hyperthyroidism: TSH undetectable FT4 elevated Spoke with Dr Siddiqi (endocrinology),via messaging and the phone re: this issue 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 There are 2 types -- type 1 which responds to methimazole, and type 2 which is Rx with prednisone literature suggests you can also have mix of type 1/type 2 as well Endocrinology recommended to treat with both methimazole 10mg TID AND prednisone 10mg TID Will need endo f/u post-d/c in 3 weeks Endocrinology also suggested Thyroid U/S doppler to assess vascular flow to thyroid which revealed no hyperemia (which may correlate more to type 2) Dr Nino talked cardiology - stopping amiodarone is not advisable at this time; has had [id number] a.fib in the past Patient will need to continue the Methimazole 10mg TID and Prednisone 10mg TID and follow up with Dr Siddiqi in 2 weeks (3) Elevated INR: Noted to be 7.9 during his Anticoagulation clinic visit with Dr. Marina day of admission s/p 5mg vit K x 1 daily INR while here INR 2.[address] Marina this AM via messaging and patient to have 1mg today with repeat INR in AM Patient will continue to need daily INRs Patient has appointment at the anticoagulation clinic tomorrow at 11:00 Will try and discharge patient before 11 AM to make it to his appt 04/12/22 - Coumadin 1mg 04/13/22 - Coumadin 2mg 04/14/21 - Coumadin 1mg Patient is being discharged to home today and has appointment in anticoagulation clinic today at 11:00 Patient will go to appt and then to home INR today 2.1 Anticoagulation clinic to address INR and Coumadin directions for tonight (4) Hypokalemia: replaced resolved (5) Acute abdominal pain in right lower quadrant: resolved u/a not suspicious for UTI CT abd/pelvis without acute findings etiology? 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: Apical thrombus detected on echo while at [facility] for his L MCA stroke just a few weeks ago During that stay he also had PAF by report Now on coumadin with amiodarone He 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 (13) Acute metabolic encephalopathy: Resolved Was likely 2nd to influenza A supportive care Continue to monitor Plan spoke with pt's ex daily- update given re: flu, hyperthyroidism, etc discussed patient will need daily INR levels and will need to follow up in anticoagulation clinic today at 11:00 discussed plan of care Total Time Total Time Spent Total Time Spent (In Minutes): 35 Discharge Plan Discharge Items Patient Disposition: Home - Self-Care Reason For Visit: ABDOMINAL PAIN, ELEVATED INR Discharge Diagnosis: amiodarone thyrotoxicosis hyperthyroidism Influenza A Atrial Fibrillation Hx embolic stroke Condition on Discharge: Good Activity: Resume your previous activity Weightbearing Comment: patient is wheelchair dependent Non-emergency contact: Primary Care Provider Call non-emergency contact if: you have any medication questions and your temperature is above 101.5 Follow-up/Referrals: Sushant Siddiqi MD [Physician] - Ethel Layne MD [Primary Care Provider] - Diet: Heart Healthy Diet Texture: Easy to Chew Addtl Attending Provider Instructions: You were initially admitted with lower abdominal pain that resolved. You were found to have Influenza A and were treated for this and your cough improved. You also were found to have a elevated INR level and your coumadin was held for several days. You were eventually restarted on the coumadin. Your INR level today is 2.1. You are being discharged to home and you have an appointment with the anticoagulation clinic today at 11:00. You will be discharge and then will go to this appontment. They will advise you on what dose of the Coumadin to take tonight. You also were found to have a significantly low thyroid level and are being treated for Hyperthryroidism and endocrinilogist Dr Siddiqi recommended treating with Prednisone 10mg one pill 3 times per day and Tapazole 10mg one pill 3 times per day You will have to follow up with Dr Siddiqi in 2 weeks Pending Studies at Discharge: No Stand-Alone Forms: My [facility] Medications and DC Order Prescriptions: New prednisone 10 mg tablet 10 mg PO TID Qty: 90 0RF methimazole 10 mg tablet 10 mg PO TID Qty: 90 0RF Continued aspirin [Adult Low Dose Aspirin] 81 mg tablet,delayed release (DR/EC) 81 mg PO DAILY Entresto 24-26 mg tablet 1 tab PO BID metoprolol succinate [Toprol XL] 25 mg tablet extended release 24 hr 12.5 mg PO DAILY meclizine 25 mg tablet 25 mg PO TID Qty: 90 1RF amiodarone 200 mg tablet 200 mg PO PM Qty: 90 3RF nitroglycerin 0.3 mg tablet, sublingual 0.3 mg sublingual Q5M PRN (Reason: chest pain) Qty: 10 0RF Rx Instructions: do not exceed 3 doses per episode diclofenac sodium 1 % gel 2 g TOPICAL QID PRN (Reason: Pain) Qty: 100 3RF pantoprazole 40 mg tablet,delayed release (DR/EC) 40 mg PO BID Qty: 180 3RF rosuvastatin [Crestor] 5 mg tablet 5 mg PO PM polyethylene glycol 3350 [Miralax] 17 gram Powder In Packet 17 g PO DAILY PRN (Reason: Constipation) famotidine [Acid-Pep] 20 mg Tablet 20 mg PO QAM Discontinued warfarin 2.5 mg tablet See Rx Instructions PO DAILY Rx Instructions: take 5 mg Fri then take 2.5 mg x 4 days orally daily; No Action warfarin 1 mg tablet See Rx Instructions PO UD Rx Instructions: 2mg q //, 1mg x 4 days per [facility] orally use as directed; Discharge Orders: Discharge Order (Routine); Ordered 04/15/22 Ordered By: Dayna Pino Admission Data Admit Date/Time: 04/10/22 16:05 Attending Provider: Yola Diana Admit Provider: Mitul Navas Primary Care Provider: Ethel Layne Other Providers: Mitul Navas ; Zenon Atkins Other Interventions: Discharge Summary Assessment (RN) Last Done: 04/15/22 09:58 Supervising Physician Co-Signing Physician Notes PA Supervision Note: I personally saw and examined the patient. I verified all luna points and agree with GHULAM Pino with the following exceptions and/or additions: 67 yo M presented for abdominal pain, foudn to be flu A positive, and have elevated INR. Also Noted to have findings consistent with hyperthyroidism. Feeling well on day of discharge. Exam: well developed well nourished, in no acute distress. Lungs CTA bilaterally, heart RRR no murmurs. AAO x3 with euthymic affect. Plan: Influenza A infection: completed 5 days of Tamiflu without issues. Possible his abdominal pains were from infection, have since resolved. On room air on discharge. Hyperthyroidism: Continue methimazole 10mg TID and prednisone 10mg TID with follow up with Endocrinology in 2 weeks. Elevated INR: >7 on admission, INR 2.1 on day of discharge. Discharged with appt with Dr. Marina today for close monitoring of INR and warfarin dosing. Else as described above. 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
== END 2022-04-15 11:12 | disposition home or self-care (01) | DRG 193 ==
LOC: EDINP 09:32 → ED 09:32 → SUATTDRO 14:56 → EDINP 18:20 → 2W 04-09 16:14 → SUATTDRO 04-10 16:05 → 2W 04-11 15:49